=== PATIENT | female | born 1950 ===

== ENCOUNTER 2021-10-27 11:11 | Inpatient (IN) | payer MEDICARE, MEDICAID ==
[2021-10-27] MEDS ORDERED: Lorazepam 2 MG/ML VIAL ONE (14:37)
[2021-10-27 15:07] LABS: Anion Gap 17 mmol/L (10-20); BUN (Urea Nitrogen) 84 mg/dL (9.8-20.1); Calc. Creatinine Clearance 0 mL/min (70-130); Calcium 10.2 mg/dL (7.8-10.44); Carbon Dioxide 21 mmol/L (23-31); Chloride 107 mmol/L (98-107); Estimated GFR 22; Glucose 60 mg/dL (80-115); Potassium 5.2 mmol/L (3.5-5.1); Protein, Total 7.3 g/dL (5.8-8.1); Sodium 140 mmol/L (136-145)
[2021-10-27 15:08] LABS: ALT (SGPT) 31 U/L (8-55); AST (SGOT) 31 U/L (5-34); Albumin 4.1 g/dL (3.4-4.8); Alkaline Phosphatase 99 U/L (40-110); Globulin 3.2 g/dL (2.4-3.5)
[2021-10-27 15:10] LABS: #Eosinphils 0.3 thou/uL (0.0-0.7); #Lymphocytes 1.9 thou/uL (1.20-3.40); #Monocytes 0.5 thou/uL (0.11-0.59); #Neutrophils 2.8 thou/uL (1.40-6.50); %Eosinophils 4.7 % (0.0-10.0); %Lymphocytes 34.4 % (21.0-51.0); %Monocytes 9.6 % (0.0-10.0); %Neutrophils 51.3 % (42.0-75.0); Hemoglobin 9.7 g/dL (12.0-16.0); Mean Corpuscular HGB CONC 33.1 g/dL (32.0-36.0); Mean Corpuscular Hemoglobin 34.3 pg (27.0-31.0); Mean Platelet Volume 8.7 fL (7.4-10.4); Platelet Count 324 thou/uL (130-400); RBC Distribution Width 19.5 % (11.5-14.5); Red Blood Cell (RBC) Count 2.84 mill/uL (4.20-5.40); White Blood Cell (WBC) Count 5.4 thou/uL (4.8-10.8)
[2021-10-27 16:33] LABS: Bilirubin Negative (Negative); Blood, Urine Negative (Negative); Clarity Clear (Clear); Glucose, Urine (Dipstick) Normal (Negative); Ketone, Urine Negative (Negative); Leukocyte 500 Leu/uL (Negative); Nitrite Negative (Negative); Protein, Urine (Dipstick) 300 mg/dL (Neg-Trace); Specific Gravity, Urine 1.013 (1.002-1.036); Squamous Epithelial 0-3 HPF (0-3); Urobilinogen Normal mg/dL (Less than 2); WBC/HPF Greater than 50 HPF (0-3); pH, Urine 8.5 (5.0-9.0)
[2021-10-27 16:34] LABS: Bacteria/HPF 1+ HPF (None Seen)
[2021-10-27] MEDS ORDERED: cefTRIAXone\\ROCEPHIN 500 MG VIAL ONE (16:43)
[2021-10-27] MEDS ORDERED: cefTRIAXone\\ROCEPHIN 1 GM VIAL ONE (16:43)
[2021-10-27 18:22] VITALS: BMI 14.1
[2021-10-28] MEDS ORDERED: Dextrose 50% Abboject 50 ML SYRINGE SLOW IVP PRN (02:32)
[2021-10-28] MEDS: Vancomycin HCl 125 MG/5 ML (BATCHED) UDCUP PO SCH ×4 (04:37→23:16)
[2021-10-28] MEDS: Sodium Chloride 0.9% 1,000 ML IV SCH ×2 (05:01→23:35)
[2021-10-28 05:08] LABS: #Eosinphils 0.2 thou/uL (0.0-0.7); #Lymphocytes 1.9 thou/uL (1.20-3.40); #Monocytes 0.5 thou/uL (0.11-0.59); #Neutrophils 2.4 thou/uL (1.40-6.50); %Basophils 0.3 % (0.0-1.0); %Eosinophils 4.6 % (0.0-10.0); %Lymphocytes 38.4 % (21.0-51.0); %Monocytes 9.2 % (0.0-10.0); %Neutrophils 47.6 % (42.0-75.0); Hemoglobin 9.2 g/dL (12.0-16.0); Mean Corpuscular HGB CONC 35.1 g/dL (32.0-36.0); Mean Platelet Volume 8.6 fL (7.4-10.4); Platelet Count 261 thou/uL (130-400); RBC Distribution Width 19.3 % (11.5-14.5); Red Blood Cell (RBC) Count 2.56 mill/uL (4.20-5.40); White Blood Cell (WBC) Count 5.1 thou/uL (4.8-10.8)
[2021-10-28 05:36] LABS: Anion Gap 14 mmol/L (10-20); BUN (Urea Nitrogen) 73 mg/dL (9.8-20.1); Calc. Creatinine Clearance 15 mL/min (70-130); Calcium 9.4 mg/dL (7.8-10.44); Carbon Dioxide 24 mmol/L (23-31); Cardiac Risk 4.4 (Less than 4.5); Chloride 106 mmol/L (98-107); Cholesterol 153 mg/dl (< 200 Desired); Estimated GFR 26; Glucose 86 mg/dL (80-115); HDL Cholesterol 35 mg/dL (>60 Neg Risk); LDL Cholesterol, Calculated 77 mg/dL; Potassium 5.2 mmol/L (3.5-5.1); Sodium 139 mmol/L (136-145); Triglycerides 204 mg/dL (Less than 150)
[2021-10-28] MEDS: Heparin 5,000 UNITS/ML VIAL SC SCH ×3 (10:13→21:28)
[2021-10-28] MEDS: Acetaminophen 325 MG TAB PO PRN ×2 (12:50→18:31)
[2021-10-28] MEDS ORDERED: Lorazepam 2 MG/ML VIAL SLOW IVP SCH ×2 (13:00→20:30)
[2021-10-28] MEDS ORDERED: Lidocaine 5% Patch TD PRN (14:44)
[2021-10-28] MEDS ORDERED: Transdermal Patch Removal TOP PRN (15:05)
[2021-10-28] MEDS ORDERED: Albuterol Sulfate 2.5 mg/0.5 ml Neb NEB PRN (15:06)
[2021-10-28] MEDS ORDERED: Vancomycin HCl 750 MG in Sodium Chloride 0.9% 250 ML 250 ML IVPB SCH (17:00)
[2021-10-28] MEDS: cefTRIAXone\\ROCEPHIN 1 GM in Sodium Chloride 0.9% 100 ML IVPB SCH (17:18)
[2021-10-28] MEDS: Carvedilol 25 MG TAB PO SCH (17:19)
[2021-10-28 18:58] LABS: Anion Gap 17 mmol/L (10-20); BUN (Urea Nitrogen) 63 mg/dL (9.8-20.1); Calc. Creatinine Clearance 16 mL/min (70-130); Calcium 9.6 mg/dL (7.8-10.44); Carbon Dioxide 18 mmol/L (23-31); Chloride 109 mmol/L (98-107); Estimated GFR 28; Glucose 116 mg/dL (80-115); Potassium 4.9 mmol/L (3.5-5.1); Sodium 139 mmol/L (136-145)
[2021-10-28] MEDS ORDERED: Vancomycin HCl 125 MG/5 ML (BATCHED) UDCUP PO SCH (19:00)
[2021-10-28] MEDS ORDERED: Sodium Bicarbonate 75 MEQ in Sodium Chloride 0.45% 1,000 ML IV SCH (20:00)
[2021-10-28] MEDS: Tacrolimus 1 MG CAP PO SCH (23:15)
[2021-10-28] MEDS: ALPRAZolam 1 MG TAB PO SCH (23:35)
[2021-10-29 05:24] LABS: #Eosinphils 0.2 thou/uL (0.0-0.7); #Lymphocytes 1.4 thou/uL (1.20-3.40); #Monocytes 0.4 thou/uL (0.11-0.59); #Neutrophils 1.7 thou/uL (1.40-6.50); %Basophils 0.1 % (0.0-1.0); %Eosinophils 5.1 % (0.0-10.0); %Lymphocytes 37.7 % (21.0-51.0); %Monocytes 11.4 % (0.0-10.0); %Neutrophils 45.7 % (42.0-75.0); Mean Corpuscular HGB CONC 34.3 g/dL (32.0-36.0); Mean Corpuscular Hemoglobin 34.9 pg (27.0-31.0); Mean Platelet Volume 8.4 fL (7.4-10.4); Platelet Count 256 thou/uL (130-400); Red Blood Cell (RBC) Count 2.58 mill/uL (4.20-5.40); White Blood Cell (WBC) Count 3.6 thou/uL (4.8-10.8)
[2021-10-29 05:47] LABS: ALT (SGPT) 25 U/L (8-55); AST (SGOT) 41 U/L (5-34); Albumin 3.4 g/dL (3.4-4.8); Alkaline Phosphatase 84 U/L (40-110); Anion Gap 15 mmol/L (10-20); BUN (Urea Nitrogen) 54 mg/dL (9.8-20.1); Bilirubin, Total 0.5 mg/dL (0.2-1.2); Calc. Creatinine Clearance 18 mL/min (70-130); Calcium 8.8 mg/dL (7.8-10.44); Carbon Dioxide 17 mmol/L (23-31); Chloride 110 mmol/L (98-107); Estimated GFR 31; Globulin 3.3 g/dL (2.4-3.5); Glucose 96 mg/dL (80-115); Magnesium 2.3 mg/dL (1.6-2.6); Phosphorus 3.7 mg/dL (2.3-4.7); Potassium 5.9 mmol/L (3.5-5.1); Protein, Total 6.7 g/dL (5.8-8.1); Sodium 136 mmol/L (136-145)
[2021-10-29] MEDS: Vancomycin HCl 125 MG/5 ML (BATCHED) UDCUP PO SCH ×3 (05:57→18:29)
[2021-10-29] MEDS ORDERED: LOKELMA 10 GM PACKET PO SCH (07:00)
[2021-10-29] MEDS ORDERED: Dronabinol 2.5 MG CAP PO SCH (08:00)
[2021-10-29] MEDS: Heparin 5,000 UNITS/ML VIAL SC SCH ×3 (10:32→12:09)
[2021-10-29] MEDS: Carvedilol 25 MG TAB PO SCH ×2 (10:33→17:11)
[2021-10-29] MEDS: Tacrolimus 1 MG CAP PO SCH ×2 (10:33→20:25)
[2021-10-29] MEDS: Famotidine/PF 20 mg/2ml Vial SLOW IVP SCH (10:34)
[2021-10-29 12:28] LABS: Potassium 4.4 mmol/L (3.5-5.1)
[2021-10-29] MEDS: Sodium Bicarbonate 150 MEQ in Dextrose 5% in Water 1,000 ML IV SCH (13:55)
[2021-10-29] MEDS: Lidocaine 5% Patch TD PRN (15:27)
[2021-10-29] MEDS: Acetaminophen 325 MG TAB PO PRN ×2 (15:28→20:24)
[2021-10-29 16:30] LABS: Anion Gap 14 mmol/L (10-20); BUN (Urea Nitrogen) 48 mg/dL (9.8-20.1); Calc. Creatinine Clearance 18 mL/min (70-130); Calcium 8.6 mg/dL (7.8-10.44); Carbon Dioxide 18 mmol/L (23-31); Chloride 108 mmol/L (98-107); Estimated GFR 32; Glucose 141 mg/dL (80-115); Potassium 4.7 mmol/L (3.5-5.1); Sodium 135 mmol/L (136-145)
[2021-10-29] MEDS: cefTRIAXone\\ROCEPHIN 1 GM in Sodium Chloride 0.9% 100 ML IVPB SCH (17:11)
[2021-10-29] MEDS: Dronabinol 2.5 MG CAP PO SCH (18:29)
[2021-10-29] MEDS ORDERED: ALPRAZolam 0.5 MG TAB PO PRN (20:14)
[2021-10-29] MEDS: ALPRAZolam 1 MG TAB PO SCH (20:23)
[2021-10-30] MEDS: Vancomycin HCl 125 MG/5 ML (BATCHED) UDCUP PO SCH ×5 (01:27→22:00)
[2021-10-30] MEDS: Sodium Bicarbonate 150 MEQ in Dextrose 5% in Water 1,000 ML IV SCH (05:49)
[2021-10-30 05:59] LABS: Anion Gap 11 mmol/L (10-20); BUN (Urea Nitrogen) 44 mg/dL (9.8-20.1); Calc. Creatinine Clearance 18 mL/min (70-130); Calcium 8.3 mg/dL (7.8-10.44); Carbon Dioxide 29 mmol/L (23-31); Chloride 104 mmol/L (98-107); Estimated GFR 32; Glucose 116 mg/dL (80-115); Potassium 3.8 mmol/L (3.5-5.1); Sodium 140 mmol/L (136-145)
[2021-10-30] MEDS ORDERED: Megestrol Acetate 800 MG/20 ML UDCUP PO SCH (09:00)
[2021-10-30] MEDS: Dronabinol 2.5 MG CAP PO SCH ×3 (09:33→16:31)
[2021-10-30] MEDS: Carvedilol 25 MG TAB PO SCH ×2 (09:33→16:31)
[2021-10-30] MEDS: Famotidine/PF 20 mg/2ml Vial SLOW IVP SCH (09:33)
[2021-10-30] MEDS: Heparin 5,000 UNITS/ML VIAL SC SCH ×3 (09:33→20:56)
[2021-10-30] MEDS: Tacrolimus 1 MG CAP PO SCH ×2 (09:33→20:56)
[2021-10-30] MEDS: hydrALAZINE 20 MG/ML VIAL SLOW IVP PRN (10:06)
[2021-10-30] MEDS: cefTRIAXone\\ROCEPHIN 1 GM in Sodium Chloride 0.9% 100 ML IVPB SCH (16:32)
[2021-10-30] MEDS: ALPRAZolam 0.25 MG TAB PO PRN (20:55)
[2021-10-31 05:45] LABS: Anion Gap 11 mmol/L (10-20); BUN (Urea Nitrogen) 36 mg/dL (9.8-20.1); Calc. Creatinine Clearance 18 mL/min (70-130); Calcium 8.8 mg/dL (7.8-10.44); Carbon Dioxide 30 mmol/L (23-31); Chloride 104 mmol/L (98-107); Estimated GFR 32; Glucose 82 mg/dL (80-115); Potassium 3.8 mmol/L (3.5-5.1); Sodium 141 mmol/L (136-145)
[2021-10-31] MEDS: Vancomycin HCl 125 MG/5 ML (BATCHED) UDCUP PO SCH ×3 (06:14→19:30)
[2021-10-31] MEDS: Heparin 5,000 UNITS/ML VIAL SC SCH ×3 (09:15→21:05)
[2021-10-31] MEDS: Carvedilol 25 MG TAB PO SCH ×2 (09:20→16:12)
[2021-10-31] MEDS: Famotidine/PF 20 mg/2ml Vial SLOW IVP SCH (09:21)
[2021-10-31] MEDS ORDERED: Acetaminophen 650 MG Suppository PR PRN (10:26)
[2021-10-31] MEDS: Tacrolimus 1 MG CAP PO SCH ×2 (10:30→20:54)
[2021-10-31] MEDS: Dronabinol 2.5 MG CAP PO SCH ×3 (10:30→16:28)
[2021-10-31] MEDS ORDERED: Ketorolac Tromethamine 30 MG/ML VIAL IVP SCH (11:00)
[2021-10-31] MEDS: Acetaminophen 325 MG TAB PO PRN (11:04)
[2021-10-31] MEDS: cefTRIAXone\\ROCEPHIN 1 GM in Sodium Chloride 0.9% 100 ML IVPB SCH (16:12)
[2021-10-31] MEDS: Dextrose 5% in Water 1,000 ML IV PRN (18:49)
[2021-10-31] MEDS: hydrALAZINE 20 MG/ML VIAL SLOW IVP PRN (20:54)
[2021-10-31] MEDS: ALPRAZolam 0.25 MG TAB PO PRN (23:56)
[2021-11-01] MEDS: Vancomycin HCl 125 MG/5 ML (BATCHED) UDCUP PO SCH ×4 (00:58→20:04)
[2021-11-01] MEDS ORDERED: Haloperidol Lactate 5 MG/ML VIAL IM SCH ×2 (01:00→21:30)
[2021-11-01] MEDS: hydrALAZINE 20 MG/ML VIAL SLOW IVP PRN ×2 (04:25→16:39)
[2021-11-01] MEDS: Dextrose 5% in Water 1,000 ML IV PRN (08:11)
[2021-11-01 08:37] LABS: Anion Gap 13 mmol/L (10-20); BUN (Urea Nitrogen) 36 mg/dL (9.8-20.1); Calc. Creatinine Clearance 16 mL/min (70-130); Calcium 8.9 mg/dL (7.8-10.44); Carbon Dioxide 25 mmol/L (23-31); Chloride 102 mmol/L (98-107); Estimated GFR 28; Glucose 122 mg/dL (80-115); Potassium 4.1 mmol/L (3.5-5.1); Sodium 136 mmol/L (136-145)
[2021-11-01] MEDS ORDERED: Heparin 5,000 UNITS/ML VIAL SC SCH (09:00)
[2021-11-01] MEDS: Dextrose 5%-Lactated Ringers 1,000 ML IV SCH (11:25)
[2021-11-01] MEDS: Famotidine/PF 20 mg/2ml Vial SLOW IVP SCH (11:25)
[2021-11-01] MEDS: Carvedilol 25 MG TAB PO SCH ×2 (11:41→20:03)
[2021-11-01] MEDS: Tacrolimus 1 MG CAP PO SCH ×2 (11:42→21:03)
[2021-11-01] MEDS: Dronabinol 2.5 MG CAP PO SCH ×3 (11:42→20:03)
[2021-11-01] MEDS ORDERED: HYDROcodone/Acetaminophen 5/325 mg Tablet PO PRN (14:12)
[2021-11-01] MEDS: cefTRIAXone\\ROCEPHIN 1 GM in Sodium Chloride 0.9% 100 ML IVPB SCH (16:38)
[2021-11-01] MEDS ORDERED: Acetaminophen 325 MG Suppository PR PRN (17:35)
[2021-11-01] MEDS ORDERED: Labetalol HCl 100 MG/20 ML VIAL SLOW IVP SCH (21:30)
[2021-11-02] MEDS: Vancomycin HCl 125 MG/5 ML (BATCHED) UDCUP PO SCH ×5 (01:16→23:39)
[2021-11-02] MEDS: Dextrose 5%-Lactated Ringers 1,000 ML IV SCH ×2 (05:31→23:32)
[2021-11-02 05:47] LABS: Anion Gap 11 mmol/L (10-20); BUN (Urea Nitrogen) 28 mg/dL (9.8-20.1); Calc. Creatinine Clearance 18 mL/min (70-130); Calcium 8.9 mg/dL (7.8-10.44); Carbon Dioxide 25 mmol/L (23-31); Chloride 105 mmol/L (98-107); Estimated GFR 31; Glucose 92 mg/dL (80-115); Potassium 3.9 mmol/L (3.5-5.1); Sodium 137 mmol/L (136-145)
[2021-11-02] MEDS: Famotidine/PF 20 mg/2ml Vial SLOW IVP SCH (08:24)
[2021-11-02] MEDS: hydrALAZINE 20 MG/ML VIAL SLOW IVP PRN ×2 (08:26→23:27)
[2021-11-02] MEDS: Carvedilol 25 MG TAB PO SCH ×2 (09:43→16:25)
[2021-11-02] MEDS: Tacrolimus 1 MG CAP PO SCH ×2 (09:44→20:41)
[2021-11-02] MEDS: Dronabinol 2.5 MG CAP PO SCH ×3 (09:44→16:25)
[2021-11-02] MEDS: cefTRIAXone\\ROCEPHIN 1 GM in Sodium Chloride 0.9% 100 ML IVPB SCH (16:24)
[2021-11-03] MEDS: hydrALAZINE 20 MG/ML VIAL SLOW IVP PRN ×3 (03:29→18:26)
[2021-11-03] MEDS: Vancomycin HCl 125 MG/5 ML (BATCHED) UDCUP PO SCH ×3 (05:37→18:26)
[2021-11-03] MEDS: Carvedilol 25 MG TAB PO SCH ×2 (08:08→17:22)
[2021-11-03] MEDS: Dronabinol 2.5 MG CAP PO SCH ×3 (08:08→17:22)
[2021-11-03] MEDS: cloNIDine 0.1mg/24 Hour PATCH TD SCH (09:47)
[2021-11-03] MEDS: Famotidine 20 MG TAB PO SCH (09:47)
[2021-11-03] MEDS: Tacrolimus 1 MG CAP PO SCH ×2 (09:47→20:47)
[2021-11-03] MEDS: cefTRIAXone\\ROCEPHIN 1 GM in Sodium Chloride 0.9% 100 ML IVPB SCH (17:38)
[2021-11-03] MEDS: Dextrose 5%-Lactated Ringers 1,000 ML IV SCH (20:47)
[2021-11-04] MEDS: Vancomycin HCl 125 MG/5 ML (BATCHED) UDCUP PO SCH ×4 (01:25→19:41)
[2021-11-04] MEDS: Labetalol HCl 100 MG/20 ML VIAL SLOW IVP PRN ×2 (03:59→20:24)
[2021-11-04] MEDS: Dronabinol 2.5 MG CAP PO SCH ×3 (07:56→17:00)
[2021-11-04] MEDS: Carvedilol 25 MG TAB PO SCH ×2 (07:56→17:01)
[2021-11-04] MEDS: Tacrolimus 1 MG CAP PO SCH ×2 (09:04→20:24)
[2021-11-04] MEDS: Famotidine 20 MG TAB PO SCH (09:04)
[2021-11-04] MEDS: Nitroglycerin 2% Ointment 1 INCH/1 GM Packet TOP SCH ×2 (09:20→17:00)
[2021-11-04] MEDS: cefTRIAXone\\ROCEPHIN 1 GM in Sodium Chloride 0.9% 100 ML IVPB SCH (17:00)
[2021-11-04] MEDS: Dextrose 5%-Lactated Ringers 1,000 ML IV SCH (18:37)
[2021-11-05] MEDS: Vancomycin HCl 125 MG/5 ML (BATCHED) UDCUP PO SCH ×4 (00:18→17:58)
[2021-11-05] MEDS: Nitroglycerin 2% Ointment 1 INCH/1 GM Packet TOP SCH ×3 (00:20→16:28)
[2021-11-05] MEDS: Carvedilol 25 MG TAB PO SCH ×2 (08:39→16:29)
[2021-11-05] MEDS: Famotidine 20 MG TAB PO SCH (08:40)
[2021-11-05] MEDS: Dronabinol 2.5 MG CAP PO SCH ×3 (08:40→17:36)
[2021-11-05] MEDS: Tacrolimus 1 MG CAP PO SCH ×2 (08:40→20:53)
[2021-11-05] MEDS: Labetalol HCl 100 MG/20 ML VIAL SLOW IVP PRN (13:03)
[2021-11-05] MEDS: Dextrose 5%-Lactated Ringers 1,000 ML IV SCH (13:10)
[2021-11-05] MEDS: cefTRIAXone\\ROCEPHIN 1 GM in Sodium Chloride 0.9% 100 ML IVPB SCH (16:29)
[2021-11-05] MEDS: hydrALAZINE 20 MG/ML VIAL SLOW IVP PRN (20:46)
[2021-11-06] MEDS: Nitroglycerin 2% Ointment 1 INCH/1 GM Packet TOP SCH ×3 (00:23→17:05)
[2021-11-06] MEDS: Vancomycin HCl 125 MG/5 ML (BATCHED) UDCUP PO SCH ×4 (00:26→18:42)
[2021-11-06 05:59] LABS: Anion Gap 10 mmol/L (10-20); BUN (Urea Nitrogen) 15 mg/dL (9.8-20.1); Calc. Creatinine Clearance 26 mL/min (70-130); Calcium 8.6 mg/dL (7.8-10.44); Carbon Dioxide 22 mmol/L (23-31); Chloride 110 mmol/L (98-107); Estimated GFR 49; Glucose 92 mg/dL (80-115); Sodium 138 mmol/L (136-145)
[2021-11-06 06:37] LABS: Anisocytosis SLIGHT = 6-15 cells (100X) (0-5/hpf); Band 2 % (5-11); Eosinophils 4 % (0-10); Hemoglobin 8.1 g/dL (12.0-16.0); Lymphocytes 57 % (21-51); MDiff Complete? YES; Macrocytosis MODERATE=16-30 cells (100X) (0-5/hpf); Mean Corpuscular HGB CONC 32.1 g/dL (32.0-36.0); Mean Corpuscular Hemoglobin 33.8 pg (27.0-31.0); Mean Platelet Volume 8.7 fL (7.4-10.4); Monocytes 8 % (0-10); Neutrophil 29 % (42-75); Ovalocytes SLIGHT = 2-5 cells (100X) (0-1/hpf); Platelet Count 192 thou/uL (130-400); Platelet Morphology Comment Appears Adequate; RBC Distribution Width 17.3 % (11.5-14.5); Red Blood Cell (RBC) Count 2.41 mill/uL (4.20-5.40); White Blood Cell (WBC) Count 2.8 thou/uL (4.8-10.8)
[2021-11-06] MEDS: Dextrose 5%-Lactated Ringers 1,000 ML IV SCH (08:31)
[2021-11-06] MEDS: Carvedilol 25 MG TAB PO SCH ×2 (08:37→18:32)
[2021-11-06] MEDS: Dronabinol 2.5 MG CAP PO SCH ×3 (08:38→18:34)
[2021-11-06] MEDS: Tacrolimus 1 MG CAP PO SCH ×2 (09:30→20:32)
[2021-11-06] MEDS: Famotidine 20 MG TAB PO SCH (09:30)
[2021-11-06] MEDS: cefTRIAXone\\ROCEPHIN 1 GM in Sodium Chloride 0.9% 100 ML IVPB SCH (17:08)
[2021-11-07] MEDS: Nitroglycerin 2% Ointment 1 INCH/1 GM Packet TOP SCH ×3 (02:10→17:51)
[2021-11-07] MEDS: Vancomycin HCl 125 MG/5 ML (BATCHED) UDCUP PO SCH ×2 (02:12→18:10)
[2021-11-07] MEDS: Dextrose 5%-Lactated Ringers 1,000 ML IV SCH ×2 (03:47→23:38)
[2021-11-07] MEDS: Carvedilol 25 MG TAB PO SCH ×2 (09:36→17:51)
[2021-11-07] MEDS: Famotidine 20 MG TAB PO SCH (09:41)
[2021-11-07] MEDS: Tacrolimus 1 MG CAP PO SCH ×3 (09:44→22:15)
[2021-11-07] MEDS: Dronabinol 2.5 MG CAP PO SCH ×3 (09:44→16:49)
[2021-11-07] MEDS ORDERED: HYDROcodone/Acetaminophen 10/325 mg Tablet PO PRN (21:00)
[2021-11-07] MEDS ORDERED: HYDROcodone/Acetaminophen 5/325 mg Tablet PO PRN (21:20)
[2021-11-07] MEDS: hydrALAZINE 20 MG/ML VIAL SLOW IVP PRN (23:38)
[2021-11-08] MEDS: Nitroglycerin 2% Ointment 1 INCH/1 GM Packet TOP SCH ×3 (00:18→17:54)
[2021-11-08] MEDS: Labetalol HCl 100 MG/20 ML VIAL SLOW IVP PRN ×2 (08:19→13:01)
[2021-11-08] MEDS: Carvedilol 25 MG TAB PO SCH ×2 (08:29→17:54)
[2021-11-08] MEDS: Tacrolimus 1 MG CAP PO SCH ×2 (08:34→20:40)
[2021-11-08] MEDS: Dronabinol 2.5 MG CAP PO SCH ×3 (10:34→17:55)
[2021-11-08] MEDS: Dextrose 5%-Lactated Ringers 1,000 ML IV SCH (19:38)
[2021-11-09] MEDS: Nitroglycerin 2% Ointment 1 INCH/1 GM Packet TOP SCH ×3 (00:06→16:14)
[2021-11-09 06:32] LABS: Anion Gap 10 mmol/L (10-20); BUN (Urea Nitrogen) 18 mg/dL (9.8-20.1); Calc. Creatinine Clearance 27 mL/min (70-130); Calcium 8.4 mg/dL (7.8-10.44); Carbon Dioxide 22 mmol/L (23-31); Chloride 113 mmol/L (98-107); Estimated GFR 52; Glucose 81 mg/dL (80-115); Potassium 4.2 mmol/L (3.5-5.1); Sodium 141 mmol/L (136-145)
[2021-11-09] MEDS ORDERED: Famotidine 20 MG TAB PO SCH (09:00)
[2021-11-09] MEDS ORDERED: Folic Acid 1 MG TAB PO SCH ×2 (09:36→10:00)
[2021-11-09] MEDS: Labetalol HCl 100 MG/20 ML VIAL SLOW IVP PRN ×2 (09:55→20:15)
[2021-11-09] MEDS: Amlodipine 10 MG TAB PO SCH (10:09)
[2021-11-09] MEDS: Dronabinol 2.5 MG CAP PO SCH ×3 (10:09→16:27)
[2021-11-09] MEDS: Carvedilol 25 MG TAB PO SCH ×2 (10:09→16:15)
[2021-11-09] MEDS: Tacrolimus 1 MG CAP PO SCH ×3 (10:10→20:29)
[2021-11-09] MEDS: Acetaminophen 325 MG TAB PO PRN (11:23)
[2021-11-09] MEDS ORDERED: Cyanocobalamin 1000 MCG/ML VIAL IM SCH (12:00)
[2021-11-09] MEDS: Dextrose 5%-Lactated Ringers 1,000 ML IV SCH (16:15)
[2021-11-09] MEDS ORDERED: HumaLOG 300 UNITS/3 ML VIAL SC PRN (21:40)
[2021-11-09] MEDS ORDERED: Promethazine HCl 25 MG in Sodium Chloride 0.9% 50 ML IVPB PRN (21:40)
[2021-11-09] MEDS ORDERED: hydrOXYzine 25 MG TAB PO PRN (21:40)
[2021-11-09] MEDS ORDERED: Polyethylene Glycol 3350 17 GM Packet PO PRN (21:50)
[2021-11-10] MEDS: Nitroglycerin 2% Ointment 1 INCH/1 GM Packet TOP SCH ×3 (00:05→16:24)
[2021-11-10] MEDS: Labetalol HCl 100 MG/20 ML VIAL SLOW IVP PRN ×3 (03:08→20:38)
[2021-11-10] MEDS: hydrALAZINE 20 MG/ML VIAL SLOW IVP PRN ×2 (08:33→16:27)
[2021-11-10] MEDS: Carvedilol 25 MG TAB PO SCH ×2 (08:43→16:52)
[2021-11-10] MEDS: Dronabinol 2.5 MG CAP PO SCH ×3 (08:43→16:52)
[2021-11-10] MEDS ORDERED: predniSONE 5 MG TAB PO SCH ×2 (08:45→09:00)
[2021-11-10] MEDS ORDERED: Vancomycin HCl 125 MG/5 ML (BATCHED) UDCUP PO SCH (09:00)
[2021-11-10] MEDS ORDERED: GINGER ROOT 250 MG PO SCH (09:00)
[2021-11-10] MEDS ORDERED: Famotidine 20 MG TAB PO SCH (09:00)
[2021-11-10] MEDS: Allopurinol 100 MG TAB PO SCH (11:29)
[2021-11-10] MEDS: busPIRone HCl 5 MG TAB PO SCH ×3 (11:29→20:49)
[2021-11-10] MEDS: Amlodipine 10 MG TAB PO SCH (11:29)
[2021-11-10] MEDS: Cholecalciferol 1,000 UNITS (25 MCG) TAB PO SCH (11:29)
[2021-11-10] MEDS: Folic Acid 1 MG TAB PO SCH (11:30)
[2021-11-10] MEDS: Famotidine 20 MG TAB PO SCH (11:30)
[2021-11-10] MEDS: cloNIDine 0.1mg/24 Hour PATCH TD SCH (11:30)
[2021-11-10] MEDS: Insulin Glargine 30 UNITS/0.3 ML VIAL SC SCH (11:31)
[2021-11-10] MEDS: Oxybutynin 5 MG TAB PO SCH ×3 (11:31→20:49)
[2021-11-10] MEDS: Torsemide 20 MG TAB PO SCH (11:32)
[2021-11-10] MEDS: Tacrolimus 1 MG CAP PO SCH ×2 (11:32→22:24)
[2021-11-10] MEDS: Dextrose 5%-Lactated Ringers 1,000 ML IV SCH (12:23)
[2021-11-10 12:53] LABS: #Eosinphils 0.1 thou/uL (0.0-0.7); #Lymphocytes 1.8 thou/uL (1.20-3.40); #Monocytes 0.3 thou/uL (0.11-0.59); #Neutrophils 2.1 thou/uL (1.40-6.50); %Basophils 0.2 % (0.0-1.0); %Eosinophils 2.7 % (0.0-10.0); %Lymphocytes 42.3 % (21.0-51.0); %Neutrophils 48.8 % (42.0-75.0); Hemoglobin 7.6 g/dL (12.0-16.0); Mean Corpuscular HGB CONC 33.3 g/dL (32.0-36.0); Mean Corpuscular Hemoglobin 33.9 pg (27.0-31.0); Mean Platelet Volume 8.1 fL (7.4-10.4); Platelet Count 185 thou/uL (130-400); RBC Distribution Width 16.7 % (11.5-14.5); Red Blood Cell (RBC) Count 2.25 mill/uL (4.20-5.40); White Blood Cell (WBC) Count 4.4 thou/uL (4.8-10.8)
[2021-11-10 13:18] LABS: Anion Gap 10 mmol/L (10-20); BUN (Urea Nitrogen) 17 mg/dL (9.8-20.1); Calc. Creatinine Clearance 31 mL/min (70-130); Calcium 8.3 mg/dL (7.8-10.44); Carbon Dioxide 24 mmol/L (23-31); Chloride 112 mmol/L (98-107); Estimated GFR 60; Glucose 89 mg/dL (80-115); Potassium 3.9 mmol/L (3.5-5.1); Sodium 142 mmol/L (136-145)
[2021-11-11] MEDS: Labetalol HCl 100 MG/20 ML VIAL SLOW IVP PRN ×3 (00:03→13:17)
[2021-11-11] MEDS: Nitroglycerin 2% Ointment 1 INCH/1 GM Packet TOP SCH ×3 (00:03→19:44)
[2021-11-11] MEDS: Dronabinol 2.5 MG CAP PO SCH ×3 (09:26→18:15)
[2021-11-11] MEDS: predniSONE 5 MG TAB PO SCH (09:50)
[2021-11-11] MEDS: Carvedilol 25 MG TAB PO SCH ×2 (09:50→19:45)
[2021-11-11] MEDS: Allopurinol 100 MG TAB PO SCH (09:50)
[2021-11-11] MEDS: Amlodipine 10 MG TAB PO SCH (09:50)
[2021-11-11] MEDS: busPIRone HCl 5 MG TAB PO SCH ×3 (09:50→21:13)
[2021-11-11] MEDS: Insulin Glargine 30 UNITS/0.3 ML VIAL SC SCH (09:51)
[2021-11-11] MEDS: Folic Acid 1 MG TAB PO SCH (09:51)
[2021-11-11] MEDS: Oxybutynin 5 MG TAB PO SCH ×3 (09:51→21:22)
[2021-11-11] MEDS: Tacrolimus 1 MG CAP PO SCH ×2 (09:51→21:22)
[2021-11-11] MEDS: Torsemide 20 MG TAB PO SCH (09:51)
[2021-11-11] MEDS: Cholecalciferol 1,000 UNITS (25 MCG) TAB PO SCH (09:51)
[2021-11-11] MEDS: Dextrose 5%-Lactated Ringers 1,000 ML IV SCH (10:53)
[2021-11-11] MEDS: Ondansetron PF 4 MG/2 ML Vial IVP PRN (14:55)
[2021-11-11] MEDS: Lidocaine 5% Patch TD PRN (14:56)
[2021-11-11] MEDS: Acetaminophen 325 MG TAB PO PRN (19:45)
[2021-11-12] MEDS: Nitroglycerin 2% Ointment 1 INCH/1 GM Packet TOP SCH ×3 (01:33→16:44)
[2021-11-12] MEDS: Dextrose 5%-Lactated Ringers 1,000 ML IV SCH (04:21)
[2021-11-12] MEDS: hydrALAZINE 20 MG/ML VIAL SLOW IVP PRN (04:27)
[2021-11-12] MEDS: Labetalol HCl 100 MG/20 ML VIAL SLOW IVP PRN ×2 (10:01→16:47)
[2021-11-12] MEDS: Carvedilol 25 MG TAB PO SCH ×2 (10:13→17:05)
[2021-11-12] MEDS: Cholecalciferol 1,000 UNITS (25 MCG) TAB PO SCH (10:13)
[2021-11-12] MEDS: predniSONE 5 MG TAB PO SCH (10:13)
[2021-11-12] MEDS: busPIRone HCl 5 MG TAB PO SCH ×3 (10:13→21:25)
[2021-11-12] MEDS: Amlodipine 10 MG TAB PO SCH (10:13)
[2021-11-12] MEDS: Dronabinol 2.5 MG CAP PO SCH ×3 (10:13→17:05)
[2021-11-12] MEDS: Allopurinol 100 MG TAB PO SCH (10:13)
[2021-11-12] MEDS: Famotidine 20 MG TAB PO SCH (10:14)
[2021-11-12] MEDS: Insulin Glargine 30 UNITS/0.3 ML VIAL SC SCH (10:14)
[2021-11-12] MEDS: Oxybutynin 5 MG TAB PO SCH ×3 (10:14→21:25)
[2021-11-12] MEDS: Tacrolimus 1 MG CAP PO SCH ×2 (10:14→21:25)
[2021-11-12] MEDS: Folic Acid 1 MG TAB PO SCH (10:14)
[2021-11-12] MEDS: Torsemide 20 MG TAB PO SCH (10:14)
[2021-11-12] MEDS ORDERED: Melatonin 3 MG TAB PO PRN (17:51)
[2021-11-12 18:27] LABS: Anion Gap 10 mmol/L (10-20); BUN (Urea Nitrogen) 17 mg/dL (9.8-20.1); Calc. Creatinine Clearance 26 mL/min (70-130); Calcium 8.1 mg/dL (7.8-10.44); Carbon Dioxide 24 mmol/L (23-31); Chloride 111 mmol/L (98-107); Estimated GFR 50; Glucose 111 mg/dL (80-115); Magnesium 1.4 mg/dL (1.6-2.6); Potassium 3.7 mmol/L (3.5-5.1); Sodium 141 mmol/L (136-145)
[2021-11-12 18:32] LABS: #Eosinphils 0.1 thou/uL (0.0-0.7); #Lymphocytes 1.3 thou/uL (1.20-3.40); #Monocytes 0.2 thou/uL (0.11-0.59); #Neutrophils 1.2 thou/uL (1.40-6.50); %Basophils 1.7 % (0.0-1.0); %Eosinophils 4.2 % (0.0-10.0); %Lymphocytes 45.5 % (21.0-51.0); %Monocytes 6.6 % (0.0-10.0); Hemoglobin 7.6 g/dL (12.0-16.0); Mean Corpuscular HGB CONC 32.7 g/dL (32.0-36.0); Mean Corpuscular Hemoglobin 33.6 pg (27.0-31.0); Mean Platelet Volume 8.2 fL (7.4-10.4); Platelet Count 205 thou/uL (130-400); RBC Distribution Width 16.6 % (11.5-14.5); Red Blood Cell (RBC) Count 2.27 mill/uL (4.20-5.40); White Blood Cell (WBC) Count 2.8 thou/uL (4.8-10.8)
[2021-11-12] MEDS ORDERED: Magnesium Sulfate In Water 4 GM in Premix Bag 1 BAG IVPB SCH (19:00)
[2021-11-12] MEDS ORDERED: Dronabinol 2.5 MG CAP PO SCH (20:00)
[2021-11-12] MEDS: Ondansetron PF 4 MG/2 ML Vial IVP PRN (20:10)
[2021-11-13] MEDS: Dextrose 5%-Lactated Ringers 1,000 ML IV SCH (00:28)
[2021-11-13] MEDS: Nitroglycerin 2% Ointment 1 INCH/1 GM Packet TOP SCH ×3 (00:28→15:30)
[2021-11-13 01:21] LABS: Bacteria/HPF 2+ HPF (None Seen); Bilirubin Negative (Negative); Blood, Urine 1+ (Negative); Clarity Turbid (Clear); Glucose, Urine (Dipstick) Normal (Negative); Ketone, Urine Negative (Negative); Leukocyte 75 Leu/uL (Negative); Nitrite 1+ (Negative); Protein, Urine (Dipstick) 300 mg/dL (Neg-Trace); Specific Gravity, Urine 1.018 (1.002-1.036); Squamous Epithelial 0-3 HPF (0-3); Urobilinogen Normal mg/dL (Less than 2); WBC/HPF 21-50 HPF (0-3)
[2021-11-13 01:22] LABS: Urine Culture Reflex Yes Yes
[2021-11-13] MEDS: Labetalol HCl 100 MG/20 ML VIAL SLOW IVP PRN ×3 (04:26→15:29)
[2021-11-13 06:24] LABS: #Basophils 0.1 thou/uL (0.0-0.2); #Eosinphils 0.1 thou/uL (0.0-0.7); #Lymphocytes 1.4 thou/uL (1.20-3.40); #Monocytes 0.3 thou/uL (0.11-0.59); #Neutrophils 2.1 thou/uL (1.40-6.50); %Basophils 1.6 % (0.0-1.0); %Eosinophils 3.7 % (0.0-10.0); %Lymphocytes 35.6 % (21.0-51.0); %Monocytes 6.2 % (0.0-10.0); %Neutrophils 52.8 % (42.0-75.0); Hemoglobin 7.3 g/dL (12.0-16.0); Mean Corpuscular HGB CONC 33.1 g/dL (32.0-36.0); Mean Corpuscular Hemoglobin 33.9 pg (27.0-31.0); Mean Platelet Volume 7.9 fL (7.4-10.4); Platelet Count 210 thou/uL (130-400); RBC Distribution Width 16.5 % (11.5-14.5); Red Blood Cell (RBC) Count 2.15 mill/uL (4.20-5.40)
[2021-11-13 06:25] LABS: Reticulocyte Count 2.6 % (0.5-1.5)
[2021-11-13 06:35] LABS: Iron 26 ug/dL (50-170); Iron Binding Capacity, Total 119 mcg/dL (265-497)
[2021-11-13 06:37] LABS: Anion Gap 9 mmol/L (10-20); BUN (Urea Nitrogen) 16 mg/dL (9.8-20.1); Calc. Creatinine Clearance 27 mL/min (70-130); Calcium 8.2 mg/dL (7.8-10.44); Carbon Dioxide 24 mmol/L (23-31); Chloride 110 mmol/L (98-107); Estimated GFR 51; Glucose 110 mg/dL (80-115); Iron 26 ug/dL (50-170); Iron Binding Capacity, Total 119 mcg/dL (265-497); Magnesium 2.6 mg/dL (1.6-2.6); Potassium 3.8 mmol/L (3.5-5.1); Sodium 139 mmol/L (136-145)
[2021-11-13] MEDS ORDERED: cefTRIAXone\\ROCEPHIN 1 GM in Sodium Chloride 0.9% 100 ML IVPB SCH (06:45)
[2021-11-13 07:02] LABS: Thyroid Stimulating Hormone 2.4257 uIU/mL (0.35-4.94)
[2021-11-13 08:02] LABS: Ferritin 2832.71 ng/mL (10-291)
[2021-11-13] MEDS: Carvedilol 25 MG TAB PO SCH ×2 (08:04→17:00)
[2021-11-13] MEDS: Amlodipine 10 MG TAB PO SCH (08:05)
[2021-11-13] MEDS: predniSONE 5 MG TAB PO SCH (08:05)
[2021-11-13] MEDS: Allopurinol 100 MG TAB PO SCH (08:05)
[2021-11-13] MEDS: Cholecalciferol 1,000 UNITS (25 MCG) TAB PO SCH (08:06)
[2021-11-13] MEDS: busPIRone HCl 5 MG TAB PO SCH ×3 (08:06→22:10)
[2021-11-13] MEDS: Insulin Glargine 30 UNITS/0.3 ML VIAL SC SCH (08:06)
[2021-11-13] MEDS: Folic Acid 1 MG TAB PO SCH (08:06)
[2021-11-13] MEDS: Oxybutynin 5 MG TAB PO SCH ×3 (08:07→22:10)
[2021-11-13] MEDS: Tacrolimus 1 MG CAP PO SCH ×2 (08:10→22:10)
[2021-11-13] MEDS: Torsemide 20 MG TAB PO SCH (08:10)
[2021-11-13] MEDS: Iron, Sodium Ferric Gluconate 250 MG in Sodium Chloride 0.9% 250 ML 250 ML IVPB SCH (09:18)
[2021-11-13] MEDS: Dronabinol 2.5 MG CAP PO SCH ×3 (09:38→17:01)
[2021-11-13] MEDS ORDERED: Lorazepam 1 MG TAB PO PRN (11:21)
[2021-11-13 11:36] LABS: Syphilis Antibody Nonreactive (Nonreactive); Syphilis Antibody Index 0.09 S/CO (<1.00 Non-Reactive)
[2021-11-13 16:56] LABS: Bilirubin Negative (Negative); Blood, Urine 2+ (Negative); Glucose, Urine (Dipstick) Normal (Negative); Ketone, Urine Negative (Negative); Leukocyte 500 Leu/uL (Negative); Nitrite Negative (Negative); Protein, Urine (Dipstick) 300 mg/dL (Neg-Trace); Specific Gravity, Urine 1.015 (1.002-1.036); Squamous Epithelial None Seen HPF (0-3); Urobilinogen Normal mg/dL (Less than 2)
[2021-11-13 17:08] LABS: Clarity Turbid (Clear)
[2021-11-13 17:09] LABS: Bacteria/HPF 3+ HPF (None Seen); WBC/HPF Greater than 50 HPF (0-3)
[2021-11-14] MEDS: Nitroglycerin 2% Ointment 1 INCH/1 GM Packet TOP SCH ×3 (00:28→16:23)
[2021-11-14] MEDS: cefTRIAXone\\ROCEPHIN 1 GM in Sodium Chloride 0.9% 100 ML IVPB SCH (06:10)
[2021-11-14 06:14] LABS: HIV (1/2) Antibody/Antigen Non-Reactive (NonReactive); HIV 1/2 INDEX 0.18 S/CO (<1.00)
[2021-11-14] MEDS: Dextrose 5%-Lactated Ringers 1,000 ML IV SCH (06:17)
[2021-11-14] MEDS: Acetaminophen 325 MG TAB PO PRN (06:25)
[2021-11-14] MEDS: Labetalol HCl 100 MG/20 ML VIAL SLOW IVP PRN (08:07)
[2021-11-14] MEDS: predniSONE 5 MG TAB PO SCH (08:43)
[2021-11-14] MEDS: Dronabinol 2.5 MG CAP PO SCH ×3 (08:43→16:36)
[2021-11-14] MEDS: Carvedilol 25 MG TAB PO SCH ×2 (08:43→16:25)
[2021-11-14] MEDS: Allopurinol 100 MG TAB PO SCH (08:43)
[2021-11-14] MEDS: Folic Acid 1 MG TAB PO SCH (08:44)
[2021-11-14] MEDS: busPIRone HCl 5 MG TAB PO SCH ×3 (08:44→21:17)
[2021-11-14] MEDS: Cholecalciferol 1,000 UNITS (25 MCG) TAB PO SCH (08:44)
[2021-11-14] MEDS: Famotidine 20 MG TAB PO SCH (08:44)
[2021-11-14] MEDS: Insulin Glargine 30 UNITS/0.3 ML VIAL SC SCH (08:44)
[2021-11-14] MEDS: Amlodipine 10 MG TAB PO SCH (08:44)
[2021-11-14] MEDS: Torsemide 20 MG TAB PO SCH (08:45)
[2021-11-14] MEDS: Oxybutynin 5 MG TAB PO SCH ×3 (08:45→21:17)
[2021-11-14] MEDS: Tacrolimus 1 MG CAP PO SCH ×2 (08:45→21:17)
[2021-11-14] MEDS: Iron, Sodium Ferric Gluconate 250 MG in Sodium Chloride 0.9% 250 ML 250 ML IVPB SCH (09:20)
[2021-11-14] MEDS ORDERED: Midazolam HCl 2 mg/2 ml Vial SLOW IVP PRN (15:42)
[2021-11-14] MEDS: hydrALAZINE 20 MG/ML VIAL SLOW IVP PRN (21:20)
[2021-11-15] MEDS: Nitroglycerin 2% Ointment 1 INCH/1 GM Packet TOP SCH ×4 (01:31→23:49)
[2021-11-15] MEDS: cefTRIAXone\\ROCEPHIN 1 GM in Sodium Chloride 0.9% 100 ML IVPB SCH (05:26)
[2021-11-15] MEDS: predniSONE 5 MG TAB PO SCH (08:59)
[2021-11-15] MEDS: Carvedilol 25 MG TAB PO SCH ×2 (08:59→17:10)
[2021-11-15] MEDS: Dronabinol 2.5 MG CAP PO SCH ×3 (09:00→15:16)
[2021-11-15] MEDS: Folic Acid 1 MG TAB PO SCH (09:01)
[2021-11-15] MEDS: Allopurinol 100 MG TAB PO SCH (09:02)
[2021-11-15] MEDS: Tacrolimus 1 MG CAP PO SCH ×2 (09:02→20:51)
[2021-11-15] MEDS: Oxybutynin 5 MG TAB PO SCH ×3 (09:02→20:51)
[2021-11-15] MEDS: Torsemide 20 MG TAB PO SCH (09:03)
[2021-11-15] MEDS: Amlodipine 10 MG TAB PO SCH (10:08)
[2021-11-15] MEDS: Iron, Sodium Ferric Gluconate 250 MG in Sodium Chloride 0.9% 250 ML 250 ML IVPB SCH (10:09)
[2021-11-15] MEDS: Cholecalciferol 1,000 UNITS (25 MCG) TAB PO SCH (10:09)
[2021-11-15] MEDS: busPIRone HCl 5 MG TAB PO SCH ×3 (10:09→20:51)
[2021-11-15] MEDS: Dextrose 5%-Lactated Ringers 1,000 ML IV SCH (10:11)
[2021-11-15] MEDS: HumaLOG 300 UNITS/3 ML VIAL SC PRN (16:09)
[2021-11-15] MEDS: Acetaminophen 325 MG TAB PO PRN (20:57)
[2021-11-15] MEDS: traZODone HCl 50 MG TAB PO PRN (20:58)
[2021-11-16 05:45] LABS: INR-International Normal Ratio 1.3; Prothrombin Time 16.3 sec (12.0-14.7)
[2021-11-16 05:46] LABS: PTT 45.5 sec (22.9-36.1)
[2021-11-16 05:51] LABS: ALT (SGPT) 22 U/L (8-55); AST (SGOT) 32 U/L (5-34); Albumin 2.2 g/dL (3.4-4.8); Alkaline Phosphatase 107 U/L (40-110); Anion Gap 10 mmol/L (10-20); BUN (Urea Nitrogen) 22 mg/dL (9.8-20.1); Bilirubin, Total 0.2 mg/dL (0.2-1.2); CRP (Inflammatory) 1.73 mg/dL (= or < 0.5); Calc. Creatinine Clearance 28 mL/min (70-130); Calcium 7.5 mg/dL (7.8-10.44); Carbon Dioxide 22 mmol/L (23-31); Chloride 111 mmol/L (98-107); Estimated GFR 53; Globulin 2.1 g/dL (2.4-3.5); Glucose 123 mg/dL (80-115); Potassium 3.8 mmol/L (3.5-5.1); Protein, Total 4.3 g/dL (5.8-8.1); Sodium 139 mmol/L (136-145)
[2021-11-16] MEDS: Dextrose 5%-Lactated Ringers 1,000 ML IV SCH (06:22)
[2021-11-16] MEDS: cefTRIAXone\\ROCEPHIN 1 GM in Sodium Chloride 0.9% 100 ML IVPB SCH (06:22)
[2021-11-16 06:54] LABS: Anisocytosis SLIGHT = 6-15 cells (100X) (0-5/hpf); Band 5 % (5-11); Eosinophils 2 % (0-10); Hemoglobin 6.2 g/dL (12.0-16.0); Lymphocytes 44 % (21-51); MDiff Complete? YES; Mean Corpuscular HGB CONC 31.3 g/dL (32.0-36.0); Mean Corpuscular Hemoglobin 32.4 pg (27.0-31.0); Mean Platelet Volume 8.6 fL (7.4-10.4); Monocytes 2 % (0-10); Neutrophil 46 % (42-75); Platelet Count 211 thou/uL (130-400); RBC Distribution Width 16.7 % (11.5-14.5); Red Blood Cell (RBC) Count 1.92 mill/uL (4.20-5.40); White Blood Cell (WBC) Count 2.2 thou/uL (4.8-10.8)
[2021-11-16] MEDS: Nitroglycerin 2% Ointment 1 INCH/1 GM Packet TOP SCH ×3 (08:38→23:36)
[2021-11-16] MEDS: predniSONE 5 MG TAB PO SCH (08:39)
[2021-11-16] MEDS: Dronabinol 2.5 MG CAP PO SCH ×3 (08:39→15:28)
[2021-11-16] MEDS: Carvedilol 25 MG TAB PO SCH ×2 (08:39→16:28)
[2021-11-16] MEDS: Tacrolimus 1 MG CAP PO SCH ×2 (10:16→21:14)
[2021-11-16] MEDS: Torsemide 20 MG TAB PO SCH (10:16)
[2021-11-16] MEDS: Amlodipine 10 MG TAB PO SCH (10:16)
[2021-11-16] MEDS: Folic Acid 1 MG TAB PO SCH (10:20)
[2021-11-16] MEDS: busPIRone HCl 5 MG TAB PO SCH ×3 (10:20→21:13)
[2021-11-16] MEDS: Cholecalciferol 1,000 UNITS (25 MCG) TAB PO SCH (10:20)
[2021-11-16] MEDS: Famotidine 20 MG TAB PO SCH (10:20)
[2021-11-16] MEDS: Allopurinol 100 MG TAB PO SCH (10:20)
[2021-11-16] MEDS: Oxybutynin 5 MG TAB PO SCH ×3 (10:22→21:13)
[2021-11-16] MEDS: Iron, Sodium Ferric Gluconate 250 MG in Sodium Chloride 0.9% 250 ML 250 ML IVPB SCH (10:33)
[2021-11-16] MEDS: HumaLOG 300 UNITS/3 ML VIAL SC PRN (16:28)
[2021-11-16] MEDS: traZODone HCl 50 MG TAB PO PRN (21:13)
[2021-11-16] MEDS: Labetalol HCl 100 MG/20 ML VIAL SLOW IVP PRN (21:30)
[2021-11-16] MEDS: hydrALAZINE 20 MG/ML VIAL SLOW IVP PRN (22:19)
[2021-11-17] MEDS: Dextrose 5%-Lactated Ringers 1,000 ML IV SCH (04:11)
[2021-11-17] MEDS: hydrALAZINE 20 MG/ML VIAL SLOW IVP PRN (04:11)
[2021-11-17] MEDS: cefTRIAXone\\ROCEPHIN 1 GM in Sodium Chloride 0.9% 100 ML IVPB SCH (05:15)
[2021-11-17 06:16] LABS: #Lymphocytes 1.3 thou/uL (1.20-3.40); #Monocytes 0.2 thou/uL (0.11-0.59); #Neutrophils 1.2 thou/uL (1.40-6.50); %Eosinophils 1.5 % (0.0-10.0); %Lymphocytes 45.7 % (21.0-51.0); %Monocytes 7.6 % (0.0-10.0); %Neutrophils 44.3 % (42.0-75.0); Hemoglobin 9.1 g/dL (12.0-16.0); Mean Corpuscular HGB CONC 33.1 g/dL (32.0-36.0); Mean Corpuscular Hemoglobin 33.1 pg (27.0-31.0); Mean Platelet Volume 8.3 fL (7.4-10.4); Platelet Count 262 thou/uL (130-400); RBC Distribution Width 16.7 % (11.5-14.5); Red Blood Cell (RBC) Count 2.75 mill/uL (4.20-5.40); White Blood Cell (WBC) Count 2.8 thou/uL (4.8-10.8)
[2021-11-17 06:24] LABS: Anion Gap 11 mmol/L (10-20); BUN (Urea Nitrogen) 23 mg/dL (9.8-20.1); Calc. Creatinine Clearance 26 mL/min (70-130); Calcium 7.8 mg/dL (7.8-10.44); Carbon Dioxide 22 mmol/L (23-31); Chloride 111 mmol/L (98-107); Estimated GFR 50; Glucose 126 mg/dL (80-115); Magnesium 1.9 mg/dL (1.6-2.6); Potassium 4.1 mmol/L (3.5-5.1); Sodium 140 mmol/L (136-145)
[2021-11-17] MEDS: cloNIDine 0.1mg/24 Hour PATCH TD SCH (08:52)
[2021-11-17] MEDS: Tacrolimus 1 MG CAP PO SCH ×2 (08:58→21:05)
[2021-11-17] MEDS: Carvedilol 25 MG TAB PO SCH ×2 (09:01→17:18)
[2021-11-17] MEDS: Torsemide 20 MG TAB PO SCH (09:02)
[2021-11-17] MEDS: Amlodipine 10 MG TAB PO SCH (09:03)
[2021-11-17] MEDS: predniSONE 5 MG TAB PO SCH (09:04)
[2021-11-17] MEDS: Oxybutynin 5 MG TAB PO SCH ×3 (09:06→21:06)
[2021-11-17] MEDS: Nitroglycerin 2% Ointment 1 INCH/1 GM Packet TOP SCH ×3 (09:08→23:56)
[2021-11-17] MEDS: Allopurinol 100 MG TAB PO SCH (09:08)
[2021-11-17] MEDS: Folic Acid 1 MG TAB PO SCH (09:09)
[2021-11-17] MEDS: Cholecalciferol 1,000 UNITS (25 MCG) TAB PO SCH (09:09)
[2021-11-17] MEDS: busPIRone HCl 5 MG TAB PO SCH ×2 (09:11→14:12)
[2021-11-17] MEDS: Dronabinol 2.5 MG CAP PO SCH ×3 (09:44→14:26)
[2021-11-17] MEDS: Acetaminophen 325 MG TAB PO PRN (09:44)
[2021-11-17] MEDS ORDERED: cloNIDine 0.2mg/24 Hour PATCH TD SCH (11:45)
[2021-11-17] MEDS ORDERED: Epoetin (ESRD) 10,000 UNITS/ML VIAL SC SCH (12:00)
[2021-11-17] MEDS: Linezolid 600 MG TAB PO SCH (21:05)
[2021-11-18] MEDS: Labetalol HCl 100 MG/20 ML VIAL SLOW IVP PRN (03:57)
[2021-11-18] MEDS ORDERED: cloNIDine 0.3mg/24 Hour PATCH TD SCH (09:00)
[2021-11-18] MEDS ORDERED: hydrALAZINE 25 MG TAB PO SCH (09:00)
[2021-11-18] MEDS ORDERED: NIFEdipine XL 30 MG TAB PO SCH (09:00)
[2021-11-18] MEDS: Dronabinol 2.5 MG CAP PO SCH (09:20)
[2021-11-18] MEDS: predniSONE 5 MG TAB PO SCH (09:21)
[2021-11-18] MEDS: Carvedilol 25 MG TAB PO SCH (09:21)
[2021-11-18 09:22] VITALS: TEMP 97.7
[2021-11-18] MEDS: Tacrolimus 1 MG CAP PO SCH (09:30)
[2021-11-18] MEDS: Allopurinol 100 MG TAB PO SCH (09:36)
[2021-11-18] MEDS: Oxybutynin 5 MG TAB PO SCH (09:37)
[2021-11-18] MEDS: Cholecalciferol 1,000 UNITS (25 MCG) TAB PO SCH (09:37)
[2021-11-18] MEDS: Folic Acid 1 MG TAB PO SCH (09:37)
[2021-11-18] MEDS: Famotidine 20 MG TAB PO SCH (09:37)
[2021-11-18] MEDS: Torsemide 20 MG TAB PO SCH (09:37)
[2021-11-18] MEDS: Acetaminophen 325 MG TAB PO PRN (09:53)
[2021-11-18] MEDS: Linezolid 600 MG TAB PO SCH (09:54)
[2021-11-18 13:15] VITALS: BP 178/70
[2021-11-24] MEDS ORDERED: cloNIDine 0.2mg/24 Hour PATCH TD SCH (09:00)
== END 2021-11-18 13:30 | DRG 689 ==
LOC: ERS 11:11 → NEURO 18:13 → OBSVTOIN 10-29 17:52 → NEURO 10-30 07:42 → MSONC 10-31 18:48
PROVIDERS: ADMIT Family Medicine; ATTEND Family Medicine
PROC: 30233N1 Transfusion of Nonautologous Red Blood Cells into Peripheral Vein, Percutaneous Approach (ICD-10-PCS; principal; 2021-11-16)
DX: N39.0 Urinary tract infection, site not specified (principal); E43 Unspecified severe protein-calorie malnutrition; G93.41 Metabolic encephalopathy; F01.511 Vascular dementia, unspecified severity, with agitation; F05 Delirium due to known physiological condition; Z20.822 Contact with and (suspected) exposure to COVID-19; N18.4 Chronic kidney disease, stage 4 (severe); T86.12 Kidney transplant failure; Z16.21 Resistance to vancomycin; I31.39 Other pericardial effusion (noninflammatory); Z68.1 Body mass index [BMI] 19.9 or less, adult; C79.31 Secondary malignant neoplasm of brain; C64.2 Malignant neoplasm of left kidney, except renal pelvis; I13.2 Hypertensive heart and chronic kidney disease with heart failure and with stage 5 chronic kidney disease, or end stage renal disease; T86.19 Other complication of kidney transplant; N17.9 Acute kidney failure, unspecified; E87.20 Acidosis, unspecified; R64 Cachexia; A04.72 Enterocolitis due to Clostridium difficile, not specified as recurrent; E87.3 Alkalosis; E11.22 Type 2 diabetes mellitus with diabetic chronic kidney disease; Y83.0 Surgical operation with transplant of whole organ as the cause of abnormal reaction of the patient, or of later complication, without mention of misadventure at the time of the procedure; B95.2 Enterococcus as the cause of diseases classified elsewhere; D53.9 Nutritional anemia, unspecified; E11.649 Type 2 diabetes mellitus with hypoglycemia without coma; F32.A Depression, unspecified; E87.6 Hypokalemia; N28.1 Cyst of kidney, acquired; I50.9 Heart failure, unspecified; M10.9 Gout, unspecified; E87.5 Hyperkalemia; E78.5 Hyperlipidemia, unspecified; R29.6 Repeated falls; E86.9 Volume depletion, unspecified; D63.1 Anemia in chronic kidney disease; R62.7 Adult failure to thrive; Z91.81 History of falling; Z88.6 Allergy status to analgesic agent; Z88.3 Allergy status to other anti-infective agents; Z88.5 Allergy status to narcotic agent; Z88.2 Allergy status to sulfonamides; Z88.8 Allergy status to other drugs, medicaments and biological substances; Z85.528 Personal history of other malignant neoplasm of kidney; Z80.9 Family history of malignant neoplasm, unspecified; Z79.4 Long term (current) use of insulin; Z87.11 Personal history of peptic ulcer disease; Z98.49 Cataract extraction status, unspecified eye; Z98.890 Other specified postprocedural states; Z79.899 Other long term (current) drug therapy; Z79.52 Long term (current) use of systemic steroids; Z87.440 Personal history of urinary (tract) infections
CPT/HCPCS: 36415; 36416; 36430; 70450; 71045; 74018; 74176; 76705; 80048; 80053; 80061; 81001; 81003; 81015; 82607; 82728; 83540; 83550; 83735; 83880; 84100; 84443; 85025; 85046; 85610; 85652; 85730; 86140; 86780; 86850; 86900; 86901; 87086; 87186; 87389; 87811; 93306; 95712; 95819; 95957; 96365; 96372; 96375; 96376; G0378; J0360; J0696; J1630; J1644; J1815; J1885; J2060; J2250; J2405; J2550; J2916; J3475; J3490; J7050; J7070; J7507; J7512; P9016; Q0167; Q4081; S0028; U0003; U0005

== ENCOUNTER 2021-11-21 14:02 | Inpatient (IN) | payer MEDICARE, MEDICAID ==
[2021-11-21 15:07] LABS: #Eosinphils 0.1 thou/uL (0.0-0.7); #Lymphocytes 1.1 thou/uL (1.20-3.40); #Monocytes 0.2 thou/uL (0.11-0.59); #Neutrophils 2.3 thou/uL (1.40-6.50); %Basophils 0.4 % (0.0-1.0); %Eosinophils 3.6 % (0.0-10.0); %Lymphocytes 30.3 % (21.0-51.0); %Monocytes 4.1 % (0.0-10.0); %Neutrophils 61.7 % (42.0-75.0); Hemoglobin 10.4 g/dL (12.0-16.0); Mean Corpuscular HGB CONC 32.9 g/dL (32.0-36.0); Mean Corpuscular Hemoglobin 32.7 pg (27.0-31.0); Mean Corpuscular Volume 99.3 fL (78.0-98.0); Mean Platelet Volume 9.1 fL (7.4-10.4); Platelet Count 233 thou/uL (130-400); RBC Distribution Width 16.5 % (11.5-14.5); Red Blood Cell (RBC) Count 3.18 mill/uL (4.20-5.40); White Blood Cell (WBC) Count 3.7 thou/uL (4.8-10.8)
[2021-11-21 15:34] LABS: ALT (SGPT) 13 U/L (8-55); AST (SGOT) 25 U/L (5-34); Albumin 2.9 g/dL (3.4-4.8); Alkaline Phosphatase 95 U/L (40-110); Anion Gap 11 mmol/L (10-20); BUN (Urea Nitrogen) 41 mg/dL (9.8-20.1); Bilirubin, Total 0.9 mg/dL (0.2-1.2); Calc. Creatinine Clearance 0 mL/min (70-130); Calcium 8.3 mg/dL (7.8-10.44); Carbon Dioxide 22 mmol/L (23-31); Chloride 111 mmol/L (98-107); Estimated GFR 37; Globulin 2.5 g/dL (2.4-3.5); Glucose 192 mg/dL (80-115); Potassium 4.7 mmol/L (3.5-5.1); Protein, Total 5.4 g/dL (5.8-8.1); Sodium 139 mmol/L (136-145)
[2021-11-21 17:06] LABS: Bacteria/HPF Rare-Few HPF (None Seen); Bilirubin Negative (Negative); Blood, Urine Negative (Negative); Clarity Clear (Clear); Glucose, Urine (Dipstick) Normal (Negative); Ketone, Urine Negative (Negative); Leukocyte Negative Leu/uL (Negative); Nitrite Negative (Negative); Protein, Urine (Dipstick) 300 mg/dL (Neg-Trace); RBC/HPF 0-3 HPF (0-3); Squamous Epithelial None Seen HPF (0-3); Urobilinogen Normal mg/dL (Less than 2); pH, Urine 6.5 (5.0-9.0)
[2021-11-21] MEDS ORDERED: Albuterol 200 PUFF (6.7GM INHALER) INH PRN (19:04)
[2021-11-21] MEDS ORDERED: Lidocaine 5% Patch TD PRN (19:04)
[2021-11-21] MEDS ORDERED: HYDROcodone/Acetaminophen 5/325 mg Tablet PO PRN (19:04)
[2021-11-21] MEDS ORDERED: Melatonin 3 MG TAB PO PRN (19:04)
[2021-11-21] MEDS ORDERED: hydrALAZINE 25 MG TAB PO SCH (21:00)
[2021-11-21] MEDS ORDERED: Haloperidol Lactate 5 MG/ML VIAL ONE (21:05)
[2021-11-21] MEDS: Tacrolimus 1 MG CAP PO SCH (23:54)
[2021-11-22] MEDS ORDERED: hydrALAZINE 20 MG/ML VIAL SLOW IVP SCH (00:45)
[2021-11-22] MEDS ORDERED: Carvedilol 25 MG TAB PO SCH (00:45)
[2021-11-22] MEDS: hydrALAZINE 20 MG/ML VIAL SLOW IVP PRN ×2 (05:47→12:13)
[2021-11-22 06:38] LABS: #Eosinphils 0.1 thou/uL (0.0-0.7); #Lymphocytes 1.6 thou/uL (1.20-3.40); #Monocytes 0.2 thou/uL (0.11-0.59); #Neutrophils 3.1 thou/uL (1.40-6.50); %Basophils 0.4 % (0.0-1.0); %Eosinophils 2.6 % (0.0-10.0); %Lymphocytes 31.2 % (21.0-51.0); %Monocytes 4.7 % (0.0-10.0); %Neutrophils 61.1 % (42.0-75.0); Mean Corpuscular HGB CONC 32.2 g/dL (32.0-36.0); Mean Corpuscular Hemoglobin 32.3 pg (27.0-31.0); Mean Platelet Volume 8.6 fL (7.4-10.4); Platelet Count 247 thou/uL (130-400); RBC Distribution Width 16.4 % (11.5-14.5); Red Blood Cell (RBC) Count 3.41 mill/uL (4.20-5.40); White Blood Cell (WBC) Count 5.1 thou/uL (4.8-10.8)
[2021-11-22 06:49] LABS: Anion Gap 14 mmol/L (10-20); BUN (Urea Nitrogen) 37 mg/dL (9.8-20.1); Calc. Creatinine Clearance 32 mL/min (70-130); Calcium 8.3 mg/dL (7.8-10.44); Carbon Dioxide 18 mmol/L (23-31); Chloride 112 mmol/L (98-107); Estimated GFR 45; Glucose 150 mg/dL (80-115); Potassium 4.5 mmol/L (3.5-5.1); Sodium 139 mmol/L (136-145)
[2021-11-22] MEDS ORDERED: Transdermal Patch Removal TOP PRN (08:00)
[2021-11-22] MEDS ORDERED: cloNIDine 0.3mg/24 Hour PATCH TD SCH (09:00)
[2021-11-22] MEDS ORDERED: NIFEdipine XL 30 MG TAB PO SCH (09:00)
[2021-11-22] MEDS: Famotidine 20 MG TAB PO SCH ×2 (09:53→10:00)
[2021-11-22] MEDS: busPIRone HCl 5 MG TAB PO SCH ×4 (09:53→21:17)
[2021-11-22] MEDS: NIFEdipine XL 60 MG TAB PO SCH ×3 (09:53→15:06)
[2021-11-22] MEDS: Carvedilol 25 MG TAB PO SCH ×4 (09:54→17:00)
[2021-11-22] MEDS: predniSONE 5 MG TAB PO SCH ×3 (09:54→15:01)
[2021-11-22] MEDS: Dronabinol 2.5 MG CAP PO SCH ×3 (10:00→15:51)
[2021-11-22] MEDS: Tacrolimus 1 MG CAP PO SCH ×3 (10:00→21:17)
[2021-11-22] MEDS ORDERED: Acetaminophen 650 MG/20.3 ML UDCUP PO PRN (13:34)
[2021-11-22] MEDS: Labetalol HCl 100 MG/20 ML VIAL SLOW IVP PRN (13:37)
[2021-11-23 08:53] LABS: Anion Gap 14 mmol/L (10-20); BUN (Urea Nitrogen) 46 mg/dL (9.8-20.1); Calc. Creatinine Clearance 19 mL/min (70-130); Calcium 8.2 mg/dL (7.8-10.44); Carbon Dioxide 17 mmol/L (23-31); Chloride 111 mmol/L (98-107); Estimated GFR 24; Glucose 238 mg/dL (80-115); Sodium 137 mmol/L (136-145)
[2021-11-23] MEDS: Carvedilol 25 MG TAB PO SCH ×3 (09:22→22:41)
[2021-11-23] MEDS: busPIRone HCl 5 MG TAB PO SCH ×3 (09:23→22:39)
[2021-11-23] MEDS: NIFEdipine XL 60 MG TAB PO SCH (09:23)
[2021-11-23] MEDS: Sertraline 25 MG TAB PO SCH (09:23)
[2021-11-23] MEDS: Tacrolimus 1 MG CAP PO SCH ×2 (09:23→22:41)
[2021-11-23] MEDS: predniSONE 5 MG TAB PO SCH (09:23)
[2021-11-23] MEDS: Dronabinol 2.5 MG CAP PO SCH ×3 (09:24→16:07)
[2021-11-23] MEDS: Pantoprazole 40 MG VIAL IVP SCH (09:24)
[2021-11-23] MEDS ORDERED: Sodium Bicarbonate 75 MEQ in Sodium Chloride 0.45% 1,000 ML IV SCH (10:00)
[2021-11-23] MEDS ORDERED: Haloperidol Lactate 5 MG/ML VIAL ONE (16:08)
[2021-11-23] MEDS ORDERED: Haloperidol Lactate 5 MG/ML VIAL IM SCH (16:15)
[2021-11-24] MEDS: hydrALAZINE 20 MG/ML VIAL SLOW IVP PRN (06:13)
[2021-11-24] MEDS: busPIRone HCl 5 MG TAB PO SCH (08:20)
[2021-11-24] MEDS: NIFEdipine XL 60 MG TAB PO SCH (08:20)
[2021-11-24] MEDS: predniSONE 5 MG TAB PO SCH (08:20)
[2021-11-24] MEDS: Carvedilol 25 MG TAB PO SCH ×2 (08:20→17:00)
[2021-11-24] MEDS: Pantoprazole 40 MG VIAL IVP SCH (08:21)
[2021-11-24] MEDS: Tacrolimus 1 MG CAP PO SCH ×2 (08:21→22:06)
[2021-11-24] MEDS: Sertraline 25 MG TAB PO SCH (08:21)
[2021-11-24 08:31] LABS: Anion Gap 12 mmol/L (10-20); BUN (Urea Nitrogen) 41 mg/dL (9.8-20.1); Calc. Creatinine Clearance 25 mL/min (70-130); Calcium 8.3 mg/dL (7.8-10.44); Carbon Dioxide 21 mmol/L (23-31); Chloride 112 mmol/L (98-107); Estimated GFR 35; Glucose 139 mg/dL (80-115); Potassium 4.5 mmol/L (3.5-5.1); Sodium 140 mmol/L (136-145)
[2021-11-24] MEDS: Dronabinol 2.5 MG CAP PO SCH ×3 (09:11→17:00)
[2021-11-24] MEDS ORDERED: Furosemide 20 MG/2 ML VIAL SLOW IVP SCH (12:30)
[2021-11-24] MEDS ORDERED: Albumin 25% 25 GM/100 ML BOT IVPB SCH (19:00)
[2021-11-24 20:21] LABS: Troponin I Less than 0.010 ng/mL (< 0.028)
[2021-11-25 01:47] LABS: Troponin I Less than 0.010 ng/mL (< 0.028)
[2021-11-25 07:19] LABS: Hemoglobin 8.2 g/dL (12.0-16.0); Mean Corpuscular HGB CONC 32.3 g/dL (32.0-36.0); Mean Corpuscular Hemoglobin 32.8 pg (27.0-31.0); Mean Platelet Volume 8.8 fL (7.4-10.4); Platelet Count 149 thou/uL (130-400); RBC Distribution Width 16.9 % (11.5-14.5)
[2021-11-25 07:45] LABS: Anion Gap 13 mmol/L (10-20); BUN (Urea Nitrogen) 45 mg/dL (9.8-20.1); Calc. Creatinine Clearance 19 mL/min (70-130); Calcium 8.1 mg/dL (7.8-10.44); Carbon Dioxide 16 mmol/L (23-31); Chloride 113 mmol/L (98-107); Estimated GFR 25; Glucose 203 mg/dL (80-115); Potassium 5.1 mmol/L (3.5-5.1); Sodium 137 mmol/L (136-145)
[2021-11-25] MEDS: Sertraline 25 MG TAB PO SCH (08:33)
[2021-11-25] MEDS: predniSONE 5 MG TAB PO SCH (08:33)
[2021-11-25] MEDS: Tacrolimus 1 MG CAP PO SCH ×3 (08:34→23:53)
[2021-11-25] MEDS: Pantoprazole 40 MG VIAL IVP SCH (08:37)
[2021-11-25] MEDS: Dronabinol 2.5 MG CAP PO SCH ×3 (08:37→17:15)
[2021-11-25 09:26] LABS: Band 22 % (5-11); Burr Cells SLIGHT = 2-5 cells (100X) (0-1/hpf); Eosinophils 1 % (0-10); Lymphocytes 22 % (21-51); MDiff Complete? YES; Monocytes 6 % (0-10); Neutrophil 49 % (42-75); Platelet Morphology Comment Appears Adequate; Polychromasia SLIGHT = 2-3 cells (100X) (0-2/hpf)
[2021-11-25] MEDS ORDERED: Furosemide 40 MG TAB PO SCH (09:30)
[2021-11-25] MEDS ORDERED: NIFEdipine XL 30 MG TAB PO SCH (09:30)
[2021-11-25] MEDS ORDERED: Sodium Bicarbonate 150 MEQ in Dextrose 5% in Water 1,000 ML IV SCH (10:00)
[2021-11-25] MEDS: Albumin 25% 25 GM/100 ML BOT IVPB SCH ×2 (11:21→16:36)
[2021-11-25 16:13] LABS: Hemoglobin 7.8 g/dL (12.0-16.0)
[2021-11-25 16:15] LABS: Tacrolimus 3.4 ng/mL (2.0-20.0)
[2021-11-25] MEDS ORDERED: Furosemide 20 MG/2 ML VIAL SLOW IVP SCH (16:15)
[2021-11-25] MEDS: Epoetin (ESRD) 10,000 UNITS/ML VIAL SC SCH (17:14)
[2021-11-25] MEDS ORDERED: Dextrose 5% in Water 1,000 ML IV PRN ×2 (18:08→22:25)
[2021-11-25] MEDS ORDERED: Dextrose 50% Abboject 50 ML SYRINGE SLOW IVP PRN ×2 (18:08→22:25)
[2021-11-25] MEDS: HumaLOG 300 UNITS/3 ML VIAL SC PRN ×2 (18:21→23:53)
[2021-11-25 19:15] LABS: Bacteria/HPF 4+ HPF (None Seen); Bilirubin Negative (Negative); Blood, Urine 3+ (Negative); Clarity Extra Turbid (Clear); Glucose, Urine (Dipstick) Normal (Negative); Ketone, Urine Negative (Negative); Leukocyte 500 Leu/uL (Negative); Nitrite Negative (Negative); Protein, Urine (Dipstick) 300 mg/dL (Neg-Trace); RBC/HPF 21-50 HPF (0-3); Specific Gravity, Urine 1.015 (1.002-1.036); Squamous Epithelial None Seen HPF (0-3); Urobilinogen Normal mg/dL (Less than 2); WBC/HPF Greater than 50 HPF (0-3); pH, Urine 6.5 (5.0-9.0)
[2021-11-25 19:17] LABS: Urine Culture Reflex Yes Yes
[2021-11-25] MEDS: NIFEdipine XL 30 MG TAB PO SCH ×2 (22:03→23:49)
[2021-11-25] MEDS ORDERED: Insulin Regular 300 UNITS/3 ML VIAL SC PRN (22:25)
[2021-11-26] MEDS: cefTRIAXone\\ROCEPHIN 1 GM in Sodium Chloride 0.9% 100 ML IVPB SCH (01:44)
[2021-11-26 04:10] LABS: Anion Gap 13 mmol/L (10-20); BUN (Urea Nitrogen) 49 mg/dL (9.8-20.1); BUN/Creatinine Ratio 24.38; Calc. Creatinine Clearance 20 mL/min (70-130); Calcium 8.8 mg/dL (7.8-10.44); Carbon Dioxide 21 mmol/L (23-31); Chloride 111 mmol/L (98-107); Estimated GFR 26; Glucose 87 mg/dL (80-115); Potassium 4.7 mmol/L (3.5-5.1); Sodium 140 mmol/L (136-145)
[2021-11-26 04:13] LABS: Phosphorus 1.9 mg/dL (2.3-4.7)
[2021-11-26] MEDS: Labetalol HCl 100 MG/20 ML VIAL SLOW IVP PRN ×3 (04:31→22:45)
[2021-11-26] MEDS ORDERED: Furosemide 20 MG/2 ML VIAL SLOW IVP SCH ×2 (05:45→08:00)
[2021-11-26 08:21] LABS: #Eosinphils 0.2 thou/uL (0.0-0.7); #Lymphocytes 1.8 thou/uL (1.20-3.40); #Monocytes 0.4 thou/uL (0.11-0.59); #Neutrophils 5.7 thou/uL (1.40-6.50); %Basophils 0.5 % (0.0-1.0); %Eosinophils 2.4 % (0.0-10.0); %Lymphocytes 21.8 % (21.0-51.0); %Monocytes 4.5 % (0.0-10.0); %Neutrophils 70.8 % (42.0-75.0); Hemoglobin 8.3 g/dL (12.0-16.0); Mean Corpuscular HGB CONC 32.6 g/dL (32.0-36.0); Mean Corpuscular Hemoglobin 32.5 pg (27.0-31.0); Mean Corpuscular Volume 99.9 fL (78.0-98.0); Platelet Count 176 thou/uL (130-400); RBC Distribution Width 17.2 % (11.5-14.5); Red Blood Cell (RBC) Count 2.56 mill/uL (4.20-5.40); White Blood Cell (WBC) Count 8.1 thou/uL (4.8-10.8)
[2021-11-26] MEDS: predniSONE 5 MG TAB PO SCH (10:04)
[2021-11-26] MEDS: NIFEdipine XL 30 MG TAB PO SCH (10:04)
[2021-11-26] MEDS: Dronabinol 2.5 MG CAP PO SCH ×3 (10:04→17:12)
[2021-11-26] MEDS: Tacrolimus 1 MG CAP PO SCH ×2 (10:05→21:18)
[2021-11-26] MEDS: Sertraline 25 MG TAB PO SCH (10:05)
[2021-11-26] MEDS ORDERED: Amino Acids 4.25 %/Dextrose 5% 2,000 ML BAG IV SCH (11:00)
[2021-11-26] MEDS: hydrALAZINE 20 MG/ML VIAL SLOW IVP PRN (11:41)
[2021-11-26] MEDS: Pantoprazole 40 MG VIAL IVP SCH (11:41)
[2021-11-26] MEDS ORDERED: Amino Acids 4.25 %/Dextrose 5% 1,000 ML IV SCH (12:00)
[2021-11-26 14:41] LABS: CMV DNA-PCR Test Negative (Negative)
[2021-11-26] MEDS: Sodium Bicarbonate 150 MEQ in Dextrose 5% in Water 1,000 ML IV SCH (14:48)
[2021-11-26] MEDS ORDERED: Furosemide 40 MG/4 ML VIAL SLOW IVP SCH (18:00)
[2021-11-26] MEDS ORDERED: Albuterol Sulfate 2.5 mg/3 ml Neb NEB PRN (19:28)
[2021-11-26] MEDS ORDERED: Levalbuterol HCl 0.63 MG/3 ML NEB NEB PRN (19:40)
[2021-11-26] MEDS ORDERED: Acetaminophen 650 MG Suppository PR PRN (19:53)
[2021-11-26 20:09] LABS: Actual Bicarbonate (HCO3a) 24.3 mEq/L (22-28); CO2 Tension 33.3 mmHg (35.0-45.0); Calcium, Ionized (arterial) 1.14 mmol/L (1.12-1.30); Carboxyhemoglobin (COHb) 0.7 gm% (0.0-3.0); Hemoglobin (Hb) 9.1 g/dL (12.0-16.0); O2 Tension (PaO2), arterial 78.9 mmHg (> 80.0); Potassium - ABG Lab 4.58 mmol/L (3.70-5.30); pH, Arterial 7.48 (7.35-7.45)
[2021-11-26] MEDS: Acetaminophen 325 MG Suppository PR PRN (21:18)
[2021-11-26 21:31] LABS: ALV-art Gradient 235.975 mmHg (0-20); Puncture Site LRA
[2021-11-27] MEDS: cefTRIAXone\\ROCEPHIN 1 GM in Sodium Chloride 0.9% 100 ML IVPB SCH (01:40)
[2021-11-27] MEDS: Labetalol HCl 100 MG/20 ML VIAL SLOW IVP PRN ×3 (03:06→22:59)
[2021-11-27] MEDS: hydrALAZINE 20 MG/ML VIAL SLOW IVP PRN ×2 (05:11→18:27)
[2021-11-27] MEDS: Pantoprazole 40 MG VIAL IVP SCH (08:48)
[2021-11-27] MEDS: Nitroglycerin 2% Ointment 1 INCH/1 GM Packet TOP SCH ×3 (08:49→22:58)
[2021-11-27] MEDS: cloNIDine 0.3mg/24 Hour PATCH TD SCH (09:25)
[2021-11-27] MEDS: Sertraline 25 MG TAB PO SCH (09:26)
[2021-11-27] MEDS: predniSONE 5 MG TAB PO SCH (09:26)
[2021-11-27] MEDS: Dronabinol 2.5 MG CAP PO SCH ×3 (09:26→16:12)
[2021-11-27] MEDS: Tacrolimus 1 MG CAP PO SCH ×2 (09:27→20:38)
[2021-11-27 12:20] LABS: Albumin 3.5 g/dL (3.4-4.8); Anion Gap 16 mmol/L (10-20); BUN (Urea Nitrogen) 42 mg/dL (9.8-20.1); Calc. Creatinine Clearance 24 mL/min (70-130); Calcium 8.5 mg/dL (7.8-10.44); Carbon Dioxide 22 mmol/L (23-31); Chloride 107 mmol/L (98-107); Estimated GFR 33; Glucose 122 mg/dL (80-115); Phosphorus 2.5 mg/dL (2.3-4.7); Potassium 4.6 mmol/L (3.5-5.1); Sodium 140 mmol/L (136-145)
[2021-11-27 12:41] LABS: #Eosinphils 0.1 thou/uL (0.0-0.7); #Monocytes 0.2 thou/uL (0.11-0.59); #Neutrophils 3.2 thou/uL (1.40-6.50); %Eosinophils 1.9 % (0.0-10.0); %Lymphocytes 22.4 % (21.0-51.0); %Monocytes 4.2 % (0.0-10.0); %Neutrophils 71.5 % (42.0-75.0); Hemoglobin 7.2 g/dL (12.0-16.0); Mean Corpuscular HGB CONC 32.8 g/dL (32.0-36.0); Mean Corpuscular Hemoglobin 32.8 pg (27.0-31.0); Mean Platelet Volume 9.3 fL (7.4-10.4); Platelet Count 138 thou/uL (130-400); RBC Distribution Width 17.9 % (11.5-14.5); Red Blood Cell (RBC) Count 2.18 mill/uL (4.20-5.40); White Blood Cell (WBC) Count 4.5 thou/uL (4.8-10.8)
[2021-11-27] MEDS: metroNIDAZOLE 500 MG in Premix Bag 1 BAG IVPB SCH ×2 (14:16→22:57)
[2021-11-27] MEDS: Sodium Bicarbonate 150 MEQ in Dextrose 5% in Water 1,000 ML IV SCH (14:16)
[2021-11-28] MEDS: cefTRIAXone\\ROCEPHIN 1 GM in Sodium Chloride 0.9% 100 ML IVPB SCH (01:06)
[2021-11-28] MEDS: hydrALAZINE 20 MG/ML VIAL SLOW IVP PRN ×3 (01:06→16:14)
[2021-11-28 04:15] LABS: Albumin 2.9 g/dL (3.4-4.8); Anion Gap 13 mmol/L (10-20); BUN (Urea Nitrogen) 42 mg/dL (9.8-20.1); BUN/Creatinine Ratio 28.38; Calc. Creatinine Clearance 27 mL/min (70-130); Calcium 8.1 mg/dL (7.8-10.44); Carbon Dioxide 25 mmol/L (23-31); Chloride 108 mmol/L (98-107); Estimated GFR 38; Glucose 108 mg/dL (80-115); Phosphorus 2.8 mg/dL (2.3-4.7); Potassium 4.3 mmol/L (3.5-5.1); Sodium 142 mmol/L (136-145)
[2021-11-28] MEDS: metroNIDAZOLE 500 MG in Premix Bag 1 BAG IVPB SCH (05:54)
[2021-11-28] MEDS ORDERED: Meropenem 1 GM in Sodium Chloride 0.9% 100 ML IVPB SCH ×2 (07:15→14:00)
[2021-11-28] MEDS: Dronabinol 2.5 MG CAP PO SCH ×3 (08:49→16:07)
[2021-11-28] MEDS: Nitroglycerin 2% Ointment 1 INCH/1 GM Packet TOP SCH ×3 (08:49→23:23)
[2021-11-28] MEDS: Pantoprazole 40 MG VIAL IVP SCH (08:49)
[2021-11-28] MEDS: predniSONE 5 MG TAB PO SCH (08:49)
[2021-11-28] MEDS: Sertraline 25 MG TAB PO SCH (08:50)
[2021-11-28] MEDS: Tacrolimus 1 MG CAP PO SCH ×2 (08:50→21:07)
[2021-11-28] MEDS: Labetalol HCl 100 MG/20 ML VIAL SLOW IVP PRN ×5 (08:51→23:54)
[2021-11-28] MEDS ORDERED: Amino Acids 4.25 %/Dextrose 5% 2,000 ML BAG IV SCH (11:00)
[2021-11-28] MEDS: Amino Acids 4.25 %/Dextrose 5% 1,000 ML IV SCH (12:17)
[2021-11-28] MEDS: Sodium Bicarbonate 150 MEQ in Dextrose 5% in Water 1,000 ML IV SCH (13:40)
[2021-11-28] MEDS: Meropenem 500 MG in Sodium Chloride 0.9% 100 ML IVPB SCH (20:07)
[2021-11-28] MEDS: Acetaminophen 325 MG Suppository PR PRN (20:29)
[2021-11-28] MEDS: Enalaprilat Dihydrate 1.25 MG/ML VIAL SLOW IVP PRN (21:03)
[2021-11-28 21:36] LABS: HSV 1 - DNA Negative (Negative); HSV 2 - DNA Negative (Negative)
[2021-11-29] MEDS: Enalaprilat Dihydrate 1.25 MG/ML VIAL SLOW IVP PRN ×2 (00:05→06:14)
[2021-11-29] MEDS: hydrALAZINE 20 MG/ML VIAL SLOW IVP PRN ×3 (03:18→18:30)
[2021-11-29] MEDS: Acetaminophen 325 MG Suppository PR PRN (03:22)
[2021-11-29 04:05] LABS: Anion Gap 11 mmol/L (10-20); BUN (Urea Nitrogen) 35 mg/dL (9.8-20.1); Calc. Creatinine Clearance 30 mL/min (70-130); Calcium 8.1 mg/dL (7.8-10.44); Carbon Dioxide 27 mmol/L (23-31); Chloride 105 mmol/L (98-107); Estimated GFR 43; Glucose 157 mg/dL (80-115); Potassium 3.3 mmol/L (3.5-5.1); Sodium 140 mmol/L (136-145)
[2021-11-29 04:28] LABS: #Eosinphils 0.1 thou/uL (0.0-0.7); #Monocytes 0.2 thou/uL (0.11-0.59); #Neutrophils 1.9 thou/uL (1.40-6.50); %Basophils 0.3 % (0.0-1.0); %Eosinophils 2.5 % (0.0-10.0); %Lymphocytes 32.4 % (21.0-51.0); %Monocytes 4.9 % (0.0-10.0); %Neutrophils 59.9 % (42.0-75.0); Anisocytosis SLIGHT = 6-15 cells (100X) (0-5/hpf); Hemoglobin 7.5 g/dL (12.0-16.0); MDiff Complete? YES; Mean Corpuscular HGB CONC 31.8 g/dL (32.0-36.0); Mean Corpuscular Hemoglobin 32.1 pg (27.0-31.0); Platelet Count 121 thou/uL (130-400); Platelet Morphology Comment Appears Adequate; RBC Distribution Width 18.4 % (11.5-14.5); Red Blood Cell (RBC) Count 2.35 mill/uL (4.20-5.40); White Blood Cell (WBC) Count 3.1 thou/uL (4.8-10.8)
[2021-11-29] MEDS: Labetalol HCl 100 MG/20 ML VIAL SLOW IVP PRN ×2 (06:35→10:33)
[2021-11-29] MEDS ORDERED: Potassium Chloride 20 MEQ in Premix Bag 1 BAG IVPB SCH (08:00)
[2021-11-29] MEDS: Meropenem 500 MG in Sodium Chloride 0.9% 100 ML IVPB SCH ×2 (08:22→20:45)
[2021-11-29] MEDS: cloNIDine 0.1mg/24 Hour PATCH TD SCH (08:22)
[2021-11-29] MEDS: Pantoprazole 40 MG VIAL IVP SCH (08:23)
[2021-11-29] MEDS: Tacrolimus 1 MG CAP PO SCH ×2 (08:23→20:39)
[2021-11-29] MEDS: Nitroglycerin 2% Ointment 1 INCH/1 GM Packet TOP SCH ×2 (08:23→16:30)
[2021-11-29 08:24] LABS: Phosphorus 2.1 mg/dL (2.3-4.7)
[2021-11-29] MEDS: Sertraline 25 MG TAB PO SCH (08:25)
[2021-11-29] MEDS: predniSONE 5 MG TAB PO SCH (08:25)
[2021-11-29] MEDS: Dronabinol 2.5 MG CAP PO SCH ×3 (08:49→16:33)
[2021-11-29] MEDS ORDERED: Potassium Phosphate 22 MMOL in Sodium Chloride 0.9% 250 ML 250 ML IVPB SCH (09:00)
[2021-11-29] MEDS: Amino Acids 4.25 %/Dextrose 5% 1,000 ML IV SCH (16:40)
[2021-11-29] MEDS: HumaLOG 300 UNITS/3 ML VIAL SC PRN (21:51)
[2021-11-30] MEDS: Nitroglycerin 2% Ointment 1 INCH/1 GM Packet TOP SCH ×3 (00:31→17:58)
[2021-11-30 04:04] LABS: #Monocytes 0.1 thou/uL (0.11-0.59); #Neutrophils 1.1 thou/uL (1.40-6.50); %Basophils 0.5 % (0.0-1.0); %Eosinophils 1.7 % (0.0-10.0); %Lymphocytes 43.4 % (21.0-51.0); %Monocytes 5.1 % (0.0-10.0); %Neutrophils 49.4 % (42.0-75.0); Hemoglobin 7.1 g/dL (12.0-16.0); Mean Corpuscular HGB CONC 31.5 g/dL (32.0-36.0); Mean Platelet Volume 9.7 fL (7.4-10.4); Platelet Count 145 thou/uL (130-400); RBC Distribution Width 17.8 % (11.5-14.5); Red Blood Cell (RBC) Count 2.21 mill/uL (4.20-5.40); White Blood Cell (WBC) Count 2.2 thou/uL (4.8-10.8)
[2021-11-30 04:55] LABS: Anion Gap 12 mmol/L (10-20); BUN (Urea Nitrogen) 40 mg/dL (9.8-20.1); Calc. Creatinine Clearance 28 mL/min (70-130); Calcium 7.9 mg/dL (7.8-10.44); Carbon Dioxide 25 mmol/L (23-31); Chloride 104 mmol/L (98-107); Estimated GFR 40; Glucose 168 mg/dL (80-115); Potassium 4.1 mmol/L (3.5-5.1); Sodium 137 mmol/L (136-145)
[2021-11-30] MEDS: Pantoprazole 40 MG VIAL IVP SCH (09:56)
[2021-11-30] MEDS: Dronabinol 2.5 MG CAP PO SCH ×3 (09:57→18:10)
[2021-11-30] MEDS: Tacrolimus 1 MG CAP PO SCH ×2 (10:32→21:01)
[2021-11-30] MEDS: Sertraline 25 MG TAB PO SCH (10:32)
[2021-11-30] MEDS: predniSONE 5 MG TAB PO SCH (10:32)
[2021-11-30] MEDS: Meropenem 500 MG in Sodium Chloride 0.9% 100 ML IVPB SCH (13:26)
[2021-11-30] MEDS: Meropenem 1 GM in Sodium Chloride 0.9% 100 ML IVPB SCH (13:35)
[2021-11-30] MEDS: HumaLOG 300 UNITS/3 ML VIAL SC PRN (18:00)
[2021-11-30] MEDS: Labetalol HCl 100 MG/20 ML VIAL SLOW IVP PRN (18:06)
[2021-11-30] MEDS: Acetaminophen 325 MG/10.15 ML UDCUP PO PRN (21:01)
[2021-12-01] MEDS: Nitroglycerin 2% Ointment 1 INCH/1 GM Packet TOP SCH ×3 (01:45→15:49)
[2021-12-01] MEDS: Labetalol HCl 100 MG/20 ML VIAL SLOW IVP PRN (03:38)
[2021-12-01 05:19] LABS: Anion Gap 12 mmol/L (10-20); BUN (Urea Nitrogen) 44 mg/dL (9.8-20.1); Calc. Creatinine Clearance 28 mL/min (70-130); Calcium 7.9 mg/dL (7.8-10.44); Carbon Dioxide 25 mmol/L (23-31); Chloride 104 mmol/L (98-107); Estimated GFR 40; Glucose 161 mg/dL (80-115); Potassium 4.4 mmol/L (3.5-5.1); Sodium 137 mmol/L (136-145)
[2021-12-01 06:25] LABS: Anisocytosis SLIGHT = 6-15 cells (100X) (0-5/hpf); Band 6 % (5-11); Eosinophils 1 % (0-10); Hemoglobin 7.3 g/dL (12.0-16.0); Lymphocytes 57 % (21-51); MDiff Complete? YES; Mean Corpuscular HGB CONC 31.7 g/dL (32.0-36.0); Mean Corpuscular Hemoglobin 32.2 pg (27.0-31.0); Mean Platelet Volume 9.2 fL (7.4-10.4); Neutrophil 36 % (42-75); Platelet Count 182 thou/uL (130-400); RBC Distribution Width 17.5 % (11.5-14.5); Red Blood Cell (RBC) Count 2.26 mill/uL (4.20-5.40); White Blood Cell (WBC) Count 1.8 thou/uL (4.8-10.8)
[2021-12-01] MEDS: Carvedilol 25 MG TAB PO SCH ×2 (07:58→17:04)
[2021-12-01] MEDS ORDERED: cloNIDine 0.1mg/24 Hour PATCH TD SCH (09:00)
[2021-12-01] MEDS: Meropenem 1 GM in Sodium Chloride 0.9% 100 ML IVPB SCH ×3 (09:09→22:49)
[2021-12-01] MEDS ORDERED: Amlodipine 5 MG TAB PO SCH (09:15)
[2021-12-01] MEDS: Dronabinol 2.5 MG CAP PO SCH ×3 (09:16→15:37)
[2021-12-01] MEDS: predniSONE 5 MG TAB PO SCH (09:17)
[2021-12-01] MEDS: Tacrolimus 1 MG CAP PO SCH ×2 (09:17→22:50)
[2021-12-01] MEDS: Sertraline 25 MG TAB PO SCH (09:17)
[2021-12-01] MEDS: Pantoprazole 40 MG VIAL IVP SCH (09:17)
[2021-12-01] MEDS: Acetaminophen 325 MG/10.15 ML UDCUP PO PRN ×2 (10:44→15:48)
[2021-12-01] MEDS ORDERED: Senokot 8.6 MG TAB PO PRN (10:44)
[2021-12-01] MEDS ORDERED: Milk Of Magnesia 30 ML UDCUP PO PRN (10:45)
[2021-12-01 10:48] LABS: Magnesium 1.6 mg/dL (1.6-2.6)
[2021-12-01] MEDS: hydrALAZINE 20 MG/ML VIAL SLOW IVP PRN (15:55)
[2021-12-01] MEDS: HumaLOG 300 UNITS/3 ML VIAL SC PRN ×2 (17:04→22:50)
[2021-12-02] MEDS: Nitroglycerin 2% Ointment 1 INCH/1 GM Packet TOP SCH ×2 (03:20→13:17)
[2021-12-02] MEDS: HumaLOG 300 UNITS/3 ML VIAL SC PRN ×3 (06:25→20:35)
[2021-12-02] MEDS: Dronabinol 2.5 MG CAP PO SCH ×4 (06:41→16:44)
[2021-12-02] MEDS ORDERED: Dronabinol 2.5 MG CAP PO SCH (07:15)
[2021-12-02 08:08] LABS: Anion Gap 11 mmol/L (10-20); BUN (Urea Nitrogen) 52 mg/dL (9.8-20.1); Calc. Creatinine Clearance 31 mL/min (70-130); Calcium 8.2 mg/dL (7.8-10.44); Carbon Dioxide 26 mmol/L (23-31); Chloride 103 mmol/L (98-107); Estimated GFR 45; Glucose 149 mg/dL (80-115); Potassium 4.5 mmol/L (3.5-5.1); Sodium 135 mmol/L (136-145)
[2021-12-02] MEDS: Tacrolimus 1 MG CAP PO SCH ×2 (08:21→20:35)
[2021-12-02] MEDS: Pantoprazole 40 MG VIAL IVP SCH (08:21)
[2021-12-02] MEDS: Carvedilol 25 MG TAB PO SCH ×3 (08:21→17:58)
[2021-12-02] MEDS: Meropenem 1 GM in Sodium Chloride 0.9% 100 ML IVPB SCH ×2 (08:21→20:35)
[2021-12-02] MEDS: Acetaminophen 325 MG/10.15 ML UDCUP PO PRN (08:40)
[2021-12-02] MEDS ORDERED: Amlodipine 5 MG TAB PO SCH (09:00)
[2021-12-02] MEDS ORDERED: Donnatal Elixir 16.2 MG/5 ML UDCUP PO SCH (09:30)
[2021-12-02] MEDS: Sertraline 25 MG TAB PO SCH (12:30)
[2021-12-02] MEDS: predniSONE 5 MG TAB PO SCH (12:30)
[2021-12-02] MEDS: Epoetin (ESRD) 10,000 UNITS/ML VIAL SC SCH (15:28)
[2021-12-02] MEDS: Amino Acids 4.25 %/Dextrose 5% 1,000 ML IV SCH (18:12)
[2021-12-02] MEDS: hydrALAZINE 20 MG/ML VIAL SLOW IVP PRN (18:48)
[2021-12-03] MEDS: hydrALAZINE 20 MG/ML VIAL SLOW IVP PRN ×2 (03:51→11:26)
[2021-12-03 05:54] LABS: Anion Gap 8 mmol/L (10-20); BUN (Urea Nitrogen) 60 mg/dL (9.8-20.1); Calc. Creatinine Clearance 31 mL/min (70-130); Carbon Dioxide 26 mmol/L (23-31); Chloride 105 mmol/L (98-107); Estimated GFR 45; Glucose 234 mg/dL (80-115); Sodium 134 mmol/L (136-145)
[2021-12-03] MEDS: HumaLOG 300 UNITS/3 ML VIAL SC PRN (06:23)
[2021-12-03] MEDS: Acetaminophen 325 MG/10.15 ML UDCUP PO PRN ×2 (06:23→20:34)
[2021-12-03] MEDS: Dronabinol 2.5 MG CAP PO SCH ×5 (06:24→15:49)
[2021-12-03] MEDS: Carvedilol 25 MG TAB PO SCH ×2 (07:37→16:03)
[2021-12-03] MEDS: Meropenem 1 GM in Sodium Chloride 0.9% 100 ML IVPB SCH ×2 (07:46→20:35)
[2021-12-03] MEDS: Pantoprazole 40 MG VIAL IVP SCH (09:00)
[2021-12-03] MEDS: Amlodipine 10 MG TAB PO SCH (09:00)
[2021-12-03] MEDS ORDERED: cloNIDine 0.3mg/24 Hour PATCH TD SCH (09:00)
[2021-12-03] MEDS: Sertraline 25 MG TAB PO SCH (09:00)
[2021-12-03] MEDS: Tacrolimus 1 MG CAP PO SCH ×5 (09:01→21:10)
[2021-12-03] MEDS: predniSONE 5 MG TAB PO SCH ×3 (09:01→16:03)
[2021-12-03] MEDS: cloNIDine 0.3mg/24 Hour PATCH TD SCH (09:38)
[2021-12-03 12:16] LABS: Actual Bicarbonate (HCO3v) 27 mEq/L (22-28); Base Excess 4.6 mEq/L (-2.0 to +3.0); Calcium, Ionized (venous) 1.05 mmol/L (1.16-1.32); Chloride (VBG) 106 mmol/L (98-106); Hemoglobin (Hb) 7.9 g/dL (11.7-16.1); Potassium (VBG) 4.65 mmol/L (3.70-5.30); Sodium 132.1 mmol/L (133-146); pH (venous) 7.56 (7.32-7.43)
[2021-12-03] MEDS: Acetaminophen 650 MG Suppository PR PRN ×2 (12:42→21:09)
[2021-12-03 13:42] LABS: #Eosinphils 0.1 thou/uL (0.0-0.7); #Lymphocytes 1.1 thou/uL (1.20-3.40); #Monocytes 0.1 thou/uL (0.11-0.59); #Neutrophils 1.1 thou/uL (1.40-6.50); %Basophils 0.5 % (0.0-1.0); %Lymphocytes 47.3 % (21.0-51.0); %Monocytes 5.3 % (0.0-10.0); %Neutrophils 43.9 % (42.0-75.0); Hemoglobin 7.3 g/dL (12.0-16.0); Mean Corpuscular HGB CONC 31.2 g/dL (32.0-36.0); Mean Corpuscular Hemoglobin 31.2 pg (27.0-31.0); Mean Platelet Volume 8.6 fL (7.4-10.4); Platelet Count 181 thou/uL (130-400); RBC Distribution Width 17.5 % (11.5-14.5); Red Blood Cell (RBC) Count 2.35 mill/uL (4.20-5.40); White Blood Cell (WBC) Count 2.4 thou/uL (4.8-10.8)
[2021-12-03 13:49] LABS: Magnesium 1.8 mg/dL (1.6-2.6)
[2021-12-03] MEDS ORDERED: Furosemide 40 MG/4 ML VIAL SLOW IVP SCH (14:45)
[2021-12-03 15:32] LABS: Amphetamine Not Detected (NotDetected); Barbiturates Screen Not Detected (NotDetected); Benzodiazepine Screen Not Detected (NotDetected); Cocaine Metabolite Screen Not Detected (NotDetected); Methadone Not Detected (NotDetected); Methamphetamine Not Detected (NotDetected); Opiate Screen Not Detected (NotDetected); Oxycodone Screen Not Detected (NotDetected); Phencyclidine (PCP) Not Detected (NotDetected); THC/Cannabinoid Screen Detected (NotDetected); Tricyclic Screen Not Detected (NotDetected)
[2021-12-03 15:52] LABS: Lactic Acid 0.9 mmol/L (0.5-2.2)
[2021-12-03 15:58] LABS: ALT (SGPT) 7 U/L (8-55); AST (SGOT) 13 U/L (5-34); Albumin 2.8 g/dL (3.4-4.8); Alkaline Phosphatase 90 U/L (40-110); Bilirubin, Direct 0.3 mg/dL (0.1-0.3); Bilirubin, Total 0.6 mg/dL (0.2-1.2); Protein, Total 4.7 g/dL (5.8-8.1)
[2021-12-03] MEDS ORDERED: Electrolyte Replacement Protocol 1 EACH FS SCH (16:01)
[2021-12-03] MEDS ORDERED: Magnesium 2 GM/50 ML(in water) 2 GM in Premix Bag 1 BAG IVPB SCH (18:00)
[2021-12-03] MEDS: PHOS-NAK 1 PKT PACK PO SCH ×2 (20:30→20:35)
[2021-12-03] MEDS ORDERED: Famotidine 20 MG TAB PO SCH (21:00)
[2021-12-03] MEDS: Amino Acids 4.25 %/Dextrose 5% 1,000 ML IV SCH (23:16)
[2021-12-04] MEDS: hydrALAZINE 20 MG/ML VIAL SLOW IVP PRN ×4 (01:41→22:03)
[2021-12-04 04:41] LABS: #Lymphocytes 0.8 thou/uL (1.20-3.40); #Monocytes 0.1 thou/uL (0.11-0.59); #Neutrophils 1.4 thou/uL (1.40-6.50); %Basophils 0.4 % (0.0-1.0); %Eosinophils 0.8 % (0.0-10.0); %Lymphocytes 34.3 % (21.0-51.0); %Monocytes 5.1 % (0.0-10.0); %Neutrophils 59.4 % (42.0-75.0); Hemoglobin 7.9 g/dL (12.0-16.0); Mean Corpuscular Hemoglobin 31.4 pg (27.0-31.0); Mean Corpuscular Volume 98.1 fl (78.0-98.0); Mean Platelet Volume 8.6 fL (7.4-10.4); Platelet Count 193 thou/uL (130-400); RBC Distribution Width 17.7 % (11.5-14.5); Red Blood Cell (RBC) Count 2.52 mill/uL (4.20-5.40); White Blood Cell (WBC) Count 2.4 thou/uL (4.8-10.8)
[2021-12-04 04:56] LABS: Anion Gap 10 mmol/L (10-20); BUN (Urea Nitrogen) 65 mg/dL (9.8-20.1); Calc. Creatinine Clearance 35 mL/min (70-130); Calcium 8.4 mg/dL (7.8-10.44); Carbon Dioxide 25 mmol/L (23-31); Chloride 104 mmol/L (98-107); Estimated GFR 52; Glucose 235 mg/dL (80-115); Magnesium 2.5 mg/dL (1.6-2.6); Phosphorus 2.3 mg/dL (2.3-4.7); Potassium 5.1 mmol/L (3.5-5.1); Sodium 134 mmol/L (136-145)
[2021-12-04] MEDS: Dronabinol 2.5 MG CAP PO SCH ×4 (05:12→16:46)
[2021-12-04] MEDS: Carvedilol 25 MG TAB PO SCH ×3 (09:00→16:52)
[2021-12-04] MEDS: Meropenem 1 GM in Sodium Chloride 0.9% 100 ML IVPB SCH ×3 (09:01→21:19)
[2021-12-04] MEDS: Amlodipine 10 MG TAB PO SCH ×2 (09:01→11:07)
[2021-12-04] MEDS: Saccharomyces boulardii 250 MG CAP PO SCH ×2 (09:02→11:07)
[2021-12-04] MEDS: Pantoprazole 40 MG VIAL IVP SCH (09:02)
[2021-12-04] MEDS: PHOS-NAK 1 PKT PACK PO SCH ×4 (09:02→21:21)
[2021-12-04] MEDS: Sertraline 25 MG TAB PO SCH ×2 (09:02→11:07)
[2021-12-04] MEDS: predniSONE 5 MG TAB PO SCH ×2 (09:02→11:07)
[2021-12-04] MEDS: Tacrolimus 1 MG CAP PO SCH ×3 (09:02→21:22)
[2021-12-04] MEDS: Acetaminophen 325 MG/10.15 ML UDCUP PO PRN (09:05)
[2021-12-04] MEDS: HumaLOG 300 UNITS/3 ML VIAL SC PRN (12:25)
[2021-12-04] MEDS: Acetaminophen 650 MG Suppository PR PRN ×2 (19:48→23:31)
[2021-12-04] MEDS: Labetalol HCl 100 MG/20 ML VIAL SLOW IVP PRN (23:30)
[2021-12-05] MEDS: cloNIDine 0.3mg/24 Hour PATCH TD SCH (00:41)
[2021-12-05] MEDS: cloNIDine 0.1mg/24 Hour PATCH TD SCH (00:42)
[2021-12-05] MEDS: hydrALAZINE 20 MG/ML VIAL SLOW IVP PRN ×4 (00:52→21:58)
[2021-12-05] MEDS: Acetaminophen 650 MG Suppository PR PRN (04:01)
[2021-12-05] MEDS: Amino Acids 4.25 %/Dextrose 5% 1,000 ML IV SCH (05:06)
[2021-12-05 05:46] LABS: Magnesium 2.3 mg/dL (1.6-2.6); Potassium 4.5 mmol/L (3.5-5.1)
[2021-12-05] MEDS: Dronabinol 2.5 MG CAP PO SCH ×3 (06:02→14:27)
[2021-12-05] MEDS ORDERED: cloNIDine 0.3mg/24 Hour PATCH TD SCH (09:00)
[2021-12-05] MEDS: Carvedilol 25 MG TAB PO SCH ×2 (09:01→16:19)
[2021-12-05] MEDS: Amlodipine 10 MG TAB PO SCH (09:01)
[2021-12-05] MEDS: Pantoprazole 40 MG VIAL IVP SCH (09:01)
[2021-12-05] MEDS: PHOS-NAK 1 PKT PACK PO SCH ×5 (09:01→21:59)
[2021-12-05] MEDS: Meropenem 1 GM in Sodium Chloride 0.9% 100 ML IVPB SCH ×2 (09:01→21:59)
[2021-12-05] MEDS: Sertraline 25 MG TAB PO SCH (09:02)
[2021-12-05] MEDS: Saccharomyces boulardii 250 MG CAP PO SCH (09:02)
[2021-12-05] MEDS: predniSONE 5 MG TAB PO SCH (09:02)
[2021-12-05] MEDS: Tacrolimus 1 MG CAP PO SCH ×2 (09:03→21:59)
[2021-12-05] MEDS: Labetalol HCl 100 MG/20 ML VIAL SLOW IVP PRN ×2 (12:06→18:18)
[2021-12-05] MEDS: Acetaminophen 650 MG Suppository PR SCH ×3 (13:20→21:51)
[2021-12-05] MEDS: Bisacodyl 10 MG SUPP PR SCH (17:00)
[2021-12-05] MEDS: FENTANYL 50 MCG/ML 1 ML VIAL SLOW IVP PRN (19:25)
[2021-12-06] MEDS: Acetaminophen 650 MG Suppository PR SCH ×6 (01:35→20:57)
[2021-12-06] MEDS: FENTANYL 50 MCG/ML 1 ML VIAL SLOW IVP PRN ×2 (01:35→13:49)
[2021-12-06] MEDS: Dronabinol 2.5 MG CAP PO SCH ×3 (06:25→15:29)
[2021-12-06 07:09] LABS: Anion Gap 11 mmol/L (10-20); BUN (Urea Nitrogen) 61 mg/dL (9.8-20.1); Calc. Creatinine Clearance 48 mL/min (70-130); Calcium 8.5 mg/dL (7.8-10.44); Carbon Dioxide 23 mmol/L (23-31); Chloride 106 mmol/L (98-107); Estimated GFR 76; Glucose 117 mg/dL (80-115); Potassium 4.5 mmol/L (3.5-5.1); Sodium 135 mmol/L (136-145)
[2021-12-06 07:20] LABS: #Eosinphils 0.1 thou/uL (0.0-0.7); #Monocytes 0.2 thou/uL (0.11-0.59); #Neutrophils 1.6 thou/uL (1.40-6.50); %Basophils 1.1 % (0.0-1.0); %Eosinophils 3.3 % (0.0-10.0); %Lymphocytes 33.7 % (21.0-51.0); %Monocytes 8.3 % (0.0-10.0); %Neutrophils 53.6 % (42.0-75.0); Hemoglobin 7.3 g/dL (12.0-16.0); Mean Corpuscular HGB CONC 32.2 g/dL (32.0-36.0); Mean Corpuscular Hemoglobin 31.4 pg (27.0-31.0); Mean Corpuscular Volume 97.7 fl (78.0-98.0); Mean Platelet Volume 8.7 fL (7.4-10.4); Platelet Count 258 thou/uL (130-400); RBC Distribution Width 18.1 % (11.5-14.5); Red Blood Cell (RBC) Count 2.33 mill/uL (4.20-5.40); White Blood Cell (WBC) Count 2.9 thou/uL (4.8-10.8)
[2021-12-06] MEDS: Lactated Ringer's 1,000 ML IV SCH ×2 (08:33→08:50)
[2021-12-06] MEDS: Pantoprazole 40 MG VIAL IVP SCH (08:35)
[2021-12-06] MEDS: Carvedilol 25 MG TAB PO SCH ×2 (08:36→17:22)
[2021-12-06] MEDS: Amlodipine 10 MG TAB PO SCH (08:36)
[2021-12-06] MEDS: Saccharomyces boulardii 250 MG CAP PO SCH (08:37)
[2021-12-06] MEDS: Sertraline 25 MG TAB PO SCH (08:37)
[2021-12-06] MEDS: Tacrolimus 1 MG CAP PO SCH ×2 (08:37→21:11)
[2021-12-06] MEDS: predniSONE 5 MG TAB PO SCH (08:37)
[2021-12-06] MEDS: Labetalol HCl 100 MG/20 ML VIAL SLOW IVP PRN ×2 (08:40→21:55)
[2021-12-06] MEDS: hydrALAZINE 20 MG/ML VIAL SLOW IVP PRN ×2 (12:18→21:19)
[2021-12-06] MEDS: hydrOXYzine 25 MG TAB PO PRN (14:20)
[2021-12-06] MEDS: Ondansetron PF 4 MG/2 ML Vial IVP PRN (14:20)
[2021-12-06] MEDS: Amino Acids 4.25 %/Dextrose 5% 1,000 ML IV SCH (14:44)
[2021-12-06] MEDS: Bisacodyl 10 MG SUPP PR SCH (17:53)
[2021-12-07] MEDS: FENTANYL 50 MCG/ML 1 ML VIAL SLOW IVP PRN ×3 (00:09→23:32)
[2021-12-07] MEDS: Acetaminophen 650 MG Suppository PR SCH ×6 (00:10→21:49)
[2021-12-07] MEDS: hydrALAZINE 20 MG/ML VIAL SLOW IVP PRN ×4 (00:22→21:49)
[2021-12-07] MEDS: Dronabinol 2.5 MG CAP PO SCH ×3 (07:34→15:29)
[2021-12-07] MEDS: Pantoprazole 40 MG VIAL IVP SCH (08:44)
[2021-12-07] MEDS ORDERED: Nitroglycerin 0.4mg/Hour PATCH TD SCH (09:00)
[2021-12-07] MEDS: Nitroglycerin 2% Ointment 1 INCH/1 GM Packet TOP SCH ×3 (09:04→21:50)
[2021-12-07] MEDS ORDERED: Furosemide 40 MG/4 ML VIAL SLOW IVP SCH (10:45)
[2021-12-07] MEDS: Saccharomyces boulardii 250 MG CAP PO SCH (11:16)
[2021-12-07] MEDS: Amlodipine 10 MG TAB PO SCH (11:16)
[2021-12-07] MEDS: predniSONE 5 MG TAB PO SCH (11:16)
[2021-12-07] MEDS: Sertraline 25 MG TAB PO SCH (11:16)
[2021-12-07] MEDS: Carvedilol 25 MG TAB PO SCH ×2 (11:16→17:00)
[2021-12-07] MEDS: Tacrolimus 1 MG CAP PO SCH ×2 (11:17→21:50)
[2021-12-07 11:52] LABS: Albumin 2.7 g/dL (3.4-4.8); Anion Gap 10 mmol/L (10-20); BUN (Urea Nitrogen) 61 mg/dL (9.8-20.1); BUN/Creatinine Ratio 70.11; Calc. Creatinine Clearance 45 mL/min (70-130); Calcium 8.6 mg/dL (7.8-10.44); Carbon Dioxide 23 mmol/L (23-31); Chloride 106 mmol/L (98-107); Estimated GFR 72; Glucose 103 mg/dL (80-115); Phosphorus 2.8 mg/dL (2.3-4.7); Potassium 4.5 mmol/L (3.5-5.1); Sodium 134 mmol/L (136-145)
[2021-12-07 15:08] LABS: INR-International Normal Ratio 1.2; Prothrombin Time 15.4 sec (12.0-14.7)
[2021-12-07 15:09] LABS: PTT 42.6 sec (22.9-36.1)
[2021-12-07] MEDS: Labetalol HCl 100 MG/20 ML VIAL SLOW IVP PRN (15:28)
[2021-12-07] MEDS: Bisacodyl 10 MG SUPP PR SCH (16:24)
[2021-12-07] MEDS: Ondansetron PF 4 MG/2 ML Vial IVP PRN (21:48)
[2021-12-07] MEDS: hydrOXYzine 25 MG TAB PO PRN (21:49)
[2021-12-07] MEDS: Amino Acids 4.25 %/Dextrose 5% 1,000 ML IV SCH (23:32)
[2021-12-08] MEDS: Acetaminophen 650 MG Suppository PR SCH ×7 (01:50→21:47)
[2021-12-08] MEDS: Labetalol HCl 100 MG/20 ML VIAL SLOW IVP PRN ×3 (01:51→11:12)
[2021-12-08] MEDS: FENTANYL 50 MCG/ML 1 ML VIAL SLOW IVP PRN ×3 (03:20→21:47)
[2021-12-08 05:48] LABS: Anion Gap 8 mmol/L (10-20); BUN (Urea Nitrogen) 58 mg/dL (9.8-20.1); Carbon Dioxide 24 mmol/L (23-31); Chloride 106 mmol/L (98-107); Potassium 4.4 mmol/L (3.5-5.1); Sodium 134 mmol/L (136-145)
[2021-12-08 05:49] LABS: Albumin 2.7 g/dL (3.4-4.8); BUN/Creatinine Ratio 69.05; Calc. Creatinine Clearance 47 mL/min (70-130); Calcium 8.6 mg/dL (7.8-10.44); Estimated GFR 75; Glucose 95 mg/dL (80-115); Phosphorus 3.1 mg/dL (2.3-4.7)
[2021-12-08] MEDS: Dronabinol 2.5 MG CAP PO SCH ×3 (06:26→16:09)
[2021-12-08] MEDS: Nitroglycerin 2% Ointment 1 INCH/1 GM Packet TOP SCH ×3 (06:45→23:50)
[2021-12-08] MEDS ORDERED: CEFAZOLIN 1 GM VIAL SLOW IVP SCH (08:00)
[2021-12-08] MEDS: Carvedilol 25 MG TAB PO SCH ×2 (08:22→17:07)
[2021-12-08] MEDS ORDERED: Furosemide 40 MG/4 ML VIAL SLOW IVP SCH (09:15)
[2021-12-08] MEDS: Pantoprazole 40 MG VIAL IVP SCH (09:23)
[2021-12-08] MEDS: Amlodipine 10 MG TAB PO SCH (09:23)
[2021-12-08] MEDS: predniSONE 5 MG TAB PO SCH (09:24)
[2021-12-08] MEDS: Saccharomyces boulardii 250 MG CAP PO SCH (09:24)
[2021-12-08] MEDS: Tacrolimus 1 MG CAP PO SCH ×2 (09:24→20:13)
[2021-12-08] MEDS: Sertraline 25 MG TAB PO SCH (09:24)
[2021-12-08] MEDS ORDERED: CEFAZOLIN 2 GM VIAL ONE (09:35)
[2021-12-08] MEDS ORDERED: Sodium Chloride 0.9% 100 ML ONE (09:35)
[2021-12-08] MEDS ORDERED: PROPOFOL 200 MG/20 ML VIAL ONE (09:44)
[2021-12-08] MEDS ORDERED: Acetaminophen 650 MG Suppository PR SCH (11:30)
[2021-12-08] MEDS: Bisacodyl 10 MG SUPP PR SCH (18:40)
[2021-12-08] MEDS: hydrALAZINE 20 MG/ML VIAL SLOW IVP PRN (20:11)
[2021-12-09] MEDS: FENTANYL 50 MCG/ML 1 ML VIAL SLOW IVP PRN (03:42)
[2021-12-09] MEDS: Ondansetron PF 4 MG/2 ML Vial IVP PRN ×2 (03:43→10:32)
[2021-12-09] MEDS: Acetaminophen 650 MG Suppository PR SCH ×4 (03:43→14:58)
[2021-12-09] MEDS: hydrALAZINE 20 MG/ML VIAL SLOW IVP PRN (03:54)
[2021-12-09] MEDS: Dronabinol 2.5 MG CAP PO SCH ×3 (06:56→15:59)
[2021-12-09] MEDS ORDERED: Furosemide 20 MG/2 ML VIAL SLOW IVP SCH (07:00)
[2021-12-09 07:27] LABS: Anion Gap 12 mmol/L (10-20); BUN (Urea Nitrogen) 55 mg/dL (9.8-20.1); Calc. Creatinine Clearance 43 mL/min (70-130); Calcium 8.9 mg/dL (7.8-10.44); Carbon Dioxide 22 mmol/L (23-31); Chloride 109 mmol/L (98-107); Estimated GFR 68; Glucose 92 mg/dL (80-115); Potassium 4.7 mmol/L (3.5-5.1); Sodium 138 mmol/L (136-145)
[2021-12-09] MEDS: Nitroglycerin 2% Ointment 1 INCH/1 GM Packet TOP SCH ×2 (08:11→16:00)
[2021-12-09] MEDS: Scopolamine 1.5 mg/72 hour Patch TD SCH (08:11)
[2021-12-09] MEDS: Carvedilol 25 MG TAB PO SCH ×2 (10:38→18:02)
[2021-12-09] MEDS: Amlodipine 10 MG TAB PO SCH (10:46)
[2021-12-09] MEDS: Saccharomyces boulardii 250 MG CAP PO SCH (10:48)
[2021-12-09] MEDS: Sertraline 25 MG TAB PO SCH (10:49)
[2021-12-09] MEDS: predniSONE 5 MG TAB PO SCH (10:49)
[2021-12-09] MEDS: Pantoprazole 40 MG VIAL IVP SCH (10:51)
[2021-12-09 10:53] LABS: #Lymphocytes 1.1 thou/uL (1.20-3.40); #Monocytes 0.2 thou/uL (0.11-0.59); %Eosinophils 0.5 % (0.0-10.0); %Lymphocytes 20.6 % (21.0-51.0); %Monocytes 4.1 % (0.0-10.0); %Neutrophils 74.9 % (42.0-75.0); Hemoglobin 8.2 g/dL (12.0-16.0); Mean Corpuscular Hemoglobin 31.9 pg (27.0-31.0); Mean Corpuscular Volume 96.6 fl (78.0-98.0); Mean Platelet Volume 8.9 fL (7.4-10.4); Platelet Count 246 thou/uL (130-400); RBC Distribution Width 18.2 % (11.5-14.5); Red Blood Cell (RBC) Count 2.55 mill/uL (4.20-5.40); White Blood Cell (WBC) Count 5.3 thou/uL (4.8-10.8)
[2021-12-09] MEDS: Tacrolimus 1 MG CAP PO SCH ×2 (10:56→21:01)
[2021-12-09] MEDS: Bisacodyl 10 MG SUPP PR SCH (15:59)
[2021-12-09] MEDS ORDERED: Lactated Ringer's 1,000 ML IV SCH (16:15)
[2021-12-09] MEDS ORDERED: Meropenem 1 GM in Sodium Chloride 0.9% 100 ML IVPB SCH ×3 (16:30→22:00)
[2021-12-09] MEDS ORDERED: Vancomycin 1 GM in Premix Bag 1 BAG IVPB SCH (17:00)
[2021-12-09] MEDS ORDERED: Acetaminophen 325 MG TAB PER TUBE SCH (17:00)
[2021-12-09] MEDS: Meropenem 1 GM in Sodium Chloride 0.9% 100 ML IVPB SCH (18:01)
[2021-12-09] MEDS: Acetaminophen 325 MG TAB PER TUBE SCH ×2 (18:16→23:22)
[2021-12-09] MEDS: Epoetin (ESRD) 10,000 UNITS/ML VIAL SC SCH (18:46)
[2021-12-09] MEDS ORDERED: Acetaminophen 650 MG Suppository PR SCH (20:00)
[2021-12-10] MEDS ORDERED: Meropenem 1 GM in Sodium Chloride 0.9% 100 ML IVPB SCH (02:00)
[2021-12-10] MEDS: Meropenem 1 GM in Sodium Chloride 0.9% 100 ML IVPB SCH ×2 (02:29→15:19)
[2021-12-10] MEDS: Acetaminophen 325 MG TAB PER TUBE SCH ×6 (02:42→22:57)
[2021-12-10 04:08] LABS: #Lymphocytes 0.8 thou/uL (1.20-3.40); #Monocytes 0.2 thou/uL (0.11-0.59); #Neutrophils 1.8 thou/uL (1.40-6.50); %Eosinophils 0.1 % (0.0-10.0); %Monocytes 5.6 % (0.0-10.0); %Neutrophils 65.3 % (42.0-75.0); Hemoglobin 6.5 g/dL (12.0-16.0); Mean Corpuscular Hemoglobin 32.7 pg (27.0-31.0); Mean Platelet Volume 8.7 fL (7.4-10.4); Platelet Count 198 thou/uL (130-400); Red Blood Cell (RBC) Count 1.98 mill/uL (4.20-5.40); White Blood Cell (WBC) Count 2.8 thou/uL (4.8-10.8)
[2021-12-10 04:42] LABS: ALT (SGPT) Less than 7 U/L (8-55); AST (SGOT) 12 U/L (5-34); Albumin 2.5 g/dL (3.4-4.8); Alkaline Phosphatase 81 U/L (40-110); Anion Gap 11 mmol/L (10-20); BUN (Urea Nitrogen) 64 mg/dL (9.8-20.1); Bilirubin, Total 0.5 mg/dL (0.2-1.2); Calc. Creatinine Clearance 27 mL/min (70-130); Calcium 8.3 mg/dL (7.8-10.44); Carbon Dioxide 22 mmol/L (23-31); Chloride 109 mmol/L (98-107); Estimated GFR 39; Globulin 1.9 g/dL (2.4-3.5); Glucose 131 mg/dL (80-115); Potassium 4.3 mmol/L (3.5-5.1); Protein, Total 4.4 g/dL (5.8-8.1); Sodium 138 mmol/L (136-145)
[2021-12-10] MEDS: FENTANYL 50 MCG/ML 1 ML VIAL SLOW IVP PRN (04:43)
[2021-12-10] MEDS ORDERED: Sodium Bicarbonate 50 MEQ in Sodium Chloride 0.45% 1,000 ML IV SCH (10:00)
[2021-12-10] MEDS: Carvedilol 25 MG TAB PO SCH ×2 (10:45→18:12)
[2021-12-10] MEDS: predniSONE 5 MG TAB PO SCH (10:45)
[2021-12-10] MEDS: Amlodipine 10 MG TAB PO SCH (10:45)
[2021-12-10] MEDS: Tacrolimus 1 MG CAP PO SCH ×2 (10:45→20:49)
[2021-12-10] MEDS: Sertraline 25 MG TAB PO SCH (10:46)
[2021-12-10] MEDS: Saccharomyces boulardii 250 MG CAP PO SCH (10:46)
[2021-12-10] MEDS: Pantoprazole 40 MG VIAL IVP SCH (10:47)
[2021-12-10] MEDS: Albumin 25% 25 GM/100 ML BOT IVPB SCH ×2 (10:50→12:05)
[2021-12-10 11:04] LABS: Hemoglobin 8.2 g/dL (12.0-16.0); Mean Corpuscular HGB CONC 31.7 g/dL (32.0-36.0); Mean Corpuscular Hemoglobin 32.2 pg (27.0-31.0); Mean Platelet Volume 8.8 fL (7.4-10.4); Platelet Count 232 thou/uL (130-400); RBC Distribution Width 18.5 % (11.5-14.5); Red Blood Cell (RBC) Count 2.56 mill/uL (4.20-5.40); White Blood Cell (WBC) Count 2.5 thou/uL (4.8-10.8)
[2021-12-10] MEDS ORDERED: Vancomycin HCl 750 MG in Sodium Chloride 0.9% 250 ML 250 ML IVPB SCH (17:00)
[2021-12-11] MEDS: Meropenem 1 GM in Sodium Chloride 0.9% 100 ML IVPB SCH ×2 (02:01→15:47)
[2021-12-11] MEDS: Acetaminophen 325 MG TAB PER TUBE SCH ×6 (02:02→22:33)
[2021-12-11 04:40] LABS: ALT (SGPT) Less than 7 U/L (8-55); AST (SGOT) 12 U/L (5-34); Albumin 2.7 g/dL (3.4-4.8); Alkaline Phosphatase 61 U/L (40-110); Anion Gap 14 mmol/L (10-20); BUN (Urea Nitrogen) 73 mg/dL (9.8-20.1); Calc. Creatinine Clearance 24 mL/min (70-130); Calcium 8.1 mg/dL (7.8-10.44); Carbon Dioxide 20 mmol/L (23-31); Chloride 108 mmol/L (98-107); Estimated GFR 33; Globulin 1.8 g/dL (2.4-3.5); Glucose 114 mg/dL (80-115); Potassium 4.2 mmol/L (3.5-5.1); Protein, Total 4.5 g/dL (5.8-8.1); Sodium 138 mmol/L (136-145)
[2021-12-11 04:41] LABS: Band 18 % (5-11); Hypochromia SLIGHT = 6-15 cells (100X) (0-5/hpf); Lymphocytes 34 % (21-51); MDiff Complete? YES; Mean Corpuscular HGB CONC 30.3 g/dL (32.0-36.0); Mean Corpuscular Hemoglobin 31.6 pg (27.0-31.0); Mean Platelet Volume 9.4 fL (7.4-10.4); Monocytes 3 % (0-10); Neutrophil 45 % (42-75); Platelet Count 158 thou/uL (130-400); RBC Distribution Width 17.8 % (11.5-14.5); White Blood Cell (WBC) Count 1.3 thou/uL (4.8-10.8)
[2021-12-11 07:42] LABS: Hemoglobin 5.7 g/dL (12.0-16.0); Platelet Count 166 thou/uL (130-400)
[2021-12-11] MEDS: Amlodipine 10 MG TAB PO SCH (08:15)
[2021-12-11] MEDS: Carvedilol 25 MG TAB PO SCH ×2 (08:15→17:32)
[2021-12-11] MEDS ORDERED: Iopamidol-370 76% 500 ML 1 ML ONE (08:40)
[2021-12-11] MEDS: Saccharomyces boulardii 250 MG CAP PO SCH (09:00)
[2021-12-11] MEDS: Tacrolimus 1 MG CAP PO SCH ×2 (09:00→20:23)
[2021-12-11] MEDS: predniSONE 5 MG TAB PO SCH (09:00)
[2021-12-11] MEDS: Pantoprazole 40 MG VIAL IVP SCH (09:04)
[2021-12-11] MEDS: Sertraline 25 MG TAB PO SCH (09:04)
[2021-12-11] MEDS: Albumin 25% 25 GM/100 ML BOT IVPB SCH ×2 (09:30→15:46)
[2021-12-11 11:24] LABS: Hemoglobin 5.1 g/dL (12.0-16.0)
[2021-12-11] MEDS ORDERED: Sodium Bicarbonate 150 MEQ in Dextrose 5% in Water 1,000 ML IV SCH (13:00)
[2021-12-11 13:16] LABS: Creatinine, Urine 105.26 mg/dL (47-110)
[2021-12-11 16:24] LABS: Vancomycin, Trough 17.5 ug/mL
[2021-12-11] MEDS ORDERED: Vancomycin Dose by Levels Sliding Scale (Wt <71) FS SCH (16:45)
[2021-12-11] MEDS ORDERED: Vancomycin HCl 250 MG in Sodium Chloride 0.9% 100 ML IV SCH (17:00)
[2021-12-11] MEDS: Ondansetron PF 4 MG/2 ML Vial IVP PRN (22:52)
[2021-12-12] MEDS: Meropenem 1 GM in Sodium Chloride 0.9% 100 ML IVPB SCH ×2 (01:44→13:56)
[2021-12-12] MEDS: Acetaminophen 325 MG TAB PER TUBE SCH ×6 (03:47→23:27)
[2021-12-12 05:02] LABS: Hemoglobin 8.9 g/dL (12.0-16.0); Mean Corpuscular HGB CONC 32.8 g/dL (32.0-36.0); Mean Corpuscular Hemoglobin 31.1 pg (27.0-31.0); Mean Corpuscular Volume 94.7 fl (78.0-98.0); Mean Platelet Volume 9.7 fL (7.4-10.4); Platelet Count 176 thou/uL (130-400); RBC Distribution Width 17.8 % (11.5-14.5); Red Blood Cell (RBC) Count 2.87 mill/uL (4.20-5.40); White Blood Cell (WBC) Count 3.9 thou/uL (4.8-10.8)
[2021-12-12 05:17] LABS: ALT (SGPT) 7 U/L (8-55); AST (SGOT) 25 U/L (5-34); Albumin 2.9 g/dL (3.4-4.8); Alkaline Phosphatase 82 U/L (40-110); Anion Gap 16 mmol/L (10-20); BUN (Urea Nitrogen) 79 mg/dL (9.8-20.1); Bilirubin, Total 1.4 mg/dL (0.2-1.2); Calc. Creatinine Clearance 21 mL/min (70-130); Calcium 7.8 mg/dL (7.8-10.44); Carbon Dioxide 21 mmol/L (23-31); Chloride 104 mmol/L (98-107); Estimated GFR 26; Globulin 1.7 g/dL (2.4-3.5); Glucose 136 mg/dL (80-115); Potassium 3.7 mmol/L (3.5-5.1); Protein, Total 4.6 g/dL (5.8-8.1); Sodium 137 mmol/L (136-145)
[2021-12-12 05:28] LABS: Band 32 % (5-11); Lymphocytes 21 % (21-51); MDiff Complete? YES; Monocytes 2 % (0-10); Neutrophil 45 % (42-75)
[2021-12-12] MEDS: Scopolamine 1.5 mg/72 hour Patch TD SCH (06:05)
[2021-12-12] MEDS: Tacrolimus 1 MG CAP PO SCH ×2 (09:01→20:29)
[2021-12-12] MEDS: Saccharomyces boulardii 250 MG CAP PO SCH (09:01)
[2021-12-12] MEDS: Sertraline 25 MG TAB PO SCH (09:01)
[2021-12-12] MEDS: Pantoprazole 40 MG VIAL IVP SCH (09:01)
[2021-12-12] MEDS: Carvedilol 25 MG TAB PO SCH ×2 (09:01→17:57)
[2021-12-12] MEDS: predniSONE 5 MG TAB PO SCH (09:01)
[2021-12-12] MEDS: Amlodipine 10 MG TAB PO SCH (09:01)
[2021-12-12] MEDS: Albumin 25% 25 GM/100 ML BOT IVPB SCH ×2 (13:56→22:35)
[2021-12-12 16:37] LABS: Vancomycin, Random 20.3 ug/mL (See Comment)
[2021-12-13] MEDS: Meropenem 1 GM in Sodium Chloride 0.9% 100 ML IVPB SCH ×2 (00:59→14:35)
[2021-12-13] MEDS: Acetaminophen 325 MG TAB PER TUBE SCH ×6 (03:46→22:46)
[2021-12-13 04:36] LABS: Band 15 % (5-11); Eosinophils 1 % (0-10); Lymphocytes 22 % (21-51); MDiff Complete? YES; Mean Corpuscular HGB CONC 33.5 g/dL (32.0-36.0); Mean Corpuscular Hemoglobin 31.6 pg (27.0-31.0); Mean Corpuscular Volume 94.4 fl (78.0-98.0); Mean Platelet Volume 9.6 fL (7.4-10.4); Monocytes 1 % (0-10); Neutrophil 61 % (42-75); Platelet Count 174 thou/uL (130-400); RBC Distribution Width 17.8 % (11.5-14.5); Red Blood Cell (RBC) Count 2.53 mill/uL (4.20-5.40); White Blood Cell (WBC) Count 3.5 thou/uL (4.8-10.8)
[2021-12-13 05:34] LABS: ALT (SGPT) 7 U/L (8-55); AST (SGOT) 66 U/L (5-34); Albumin 3.2 g/dL (3.4-4.8); Alkaline Phosphatase 101 U/L (40-110); Anion Gap 13 mmol/L (10-20); BUN (Urea Nitrogen) 84 mg/dL (9.8-20.1); Bilirubin, Total 1.5 mg/dL (0.2-1.2); Calc. Creatinine Clearance 18 mL/min (70-130); Calcium 7.7 mg/dL (7.8-10.44); Carbon Dioxide 24 mmol/L (23-31); Chloride 100 mmol/L (98-107); Estimated GFR 22; Globulin 1.5 g/dL (2.4-3.5); Glucose 142 mg/dL (80-115); Potassium 3.6 mmol/L (3.5-5.1); Protein, Total 4.7 g/dL (5.8-8.1); Sodium 133 mmol/L (136-145)
[2021-12-13] MEDS: Albumin 25% 25 GM/100 ML BOT IVPB SCH (05:50)
[2021-12-13] MEDS: Pantoprazole 40 MG VIAL IVP SCH (09:15)
[2021-12-13] MEDS: Saccharomyces boulardii 250 MG CAP PO SCH (09:16)
[2021-12-13] MEDS: Tacrolimus 1 MG CAP PO SCH ×2 (09:16→20:57)
[2021-12-13] MEDS: Carvedilol 25 MG TAB PO SCH (09:16)
[2021-12-13] MEDS: Amlodipine 10 MG TAB PO SCH (09:17)
[2021-12-13] MEDS: Sertraline 25 MG TAB PO SCH (09:17)
[2021-12-13] MEDS: predniSONE 5 MG TAB PO SCH (09:17)
[2021-12-13] MEDS: Ondansetron PF 4 MG/2 ML Vial IVP PRN ×2 (09:38→16:40)
[2021-12-13 12:10] LABS: SARS-CoV-2 NAA Rapid Test Not Detected (NotDetected)
[2021-12-13 18:29] LABS: Vancomycin, Random 18.1 ug/mL (See Comment)
[2021-12-13] MEDS: Ondansetron HCl/PF 8 MG in Sodium Chloride 0.9% 50 ML IVPB SCH (20:04)
[2021-12-13] MEDS: hydrOXYzine 25 MG TAB PO PRN (20:57)
[2021-12-13] MEDS ORDERED: Vancomycin HCl 250 MG in Sodium Chloride 0.9% 100 ML IV SCH (22:00)
[2021-12-14] MEDS: diphenhydrAMINE 50 MG/ML VIAL IVP PRN ×2 (00:53→08:27)
[2021-12-14] MEDS: Meropenem 1 GM in Sodium Chloride 0.9% 100 ML IVPB SCH ×2 (01:00→16:02)
[2021-12-14] MEDS: Acetaminophen 325 MG TAB PER TUBE SCH ×5 (03:43→18:16)
[2021-12-14 06:08] LABS: ALT (SGPT) 9 U/L (8-55); AST (SGOT) 54 U/L (5-34); Albumin 3.1 g/dL (3.4-4.8); Alkaline Phosphatase 159 U/L (40-110); Anion Gap 13 mmol/L (10-20); BUN (Urea Nitrogen) 91 mg/dL (9.8-20.1); Bilirubin, Total 1.3 mg/dL (0.2-1.2); Calc. Creatinine Clearance 15 mL/min (70-130); Calcium 7.6 mg/dL (7.8-10.44); Carbon Dioxide 21 mmol/L (23-31); Chloride 102 mmol/L (98-107); Estimated GFR 17; Globulin 1.6 g/dL (2.4-3.5); Glucose 204 mg/dL (80-115); Potassium 3.3 mmol/L (3.5-5.1); Protein, Total 4.7 g/dL (5.8-8.1); Sodium 133 mmol/L (136-145)
[2021-12-14 06:33] LABS: Band 15 % (5-11); Hemoglobin 8.6 g/dL (12.0-16.0); Lymphocytes 22 % (21-51); MDiff Complete? YES; Mean Corpuscular HGB CONC 32.2 g/dL (32.0-36.0); Mean Corpuscular Hemoglobin 30.7 pg (27.0-31.0); Mean Corpuscular Volume 95.4 fl (78.0-98.0); Monocytes 7 % (0-10); Neutrophil 56 % (42-75); Platelet Count 224 10x3/uL (130-400); White Blood Cell (WBC) Count 4.1 10x3/uL (4.8-10.8)
[2021-12-14] MEDS: Amlodipine 5 MG TAB PO SCH (08:30)
[2021-12-14] MEDS: predniSONE 5 MG TAB PO SCH (08:30)
[2021-12-14] MEDS: Saccharomyces boulardii 250 MG CAP PO SCH (08:31)
[2021-12-14] MEDS: Pantoprazole 40 MG VIAL IVP SCH (08:31)
[2021-12-14] MEDS: Tacrolimus 1 MG CAP PO SCH ×2 (08:31→20:28)
[2021-12-14] MEDS: Sertraline 25 MG TAB PO SCH (08:31)
[2021-12-14] MEDS: Ondansetron HCl/PF 8 MG in Sodium Chloride 0.9% 50 ML IVPB SCH ×2 (08:32→20:28)
[2021-12-14 10:46] LABS: Magnesium 1.8 mg/dL (1.6-2.6); Phosphorus 2.3 mg/dL (2.3-4.7)
[2021-12-14] MEDS: Sodium Bicarbonate Tab 325 MG TAB PER TUBE SCH ×2 (16:04→20:28)
[2021-12-15] MEDS: Acetaminophen 325 MG TAB PER TUBE SCH ×7 (00:32→23:37)
[2021-12-15] MEDS: Meropenem 1 GM in Sodium Chloride 0.9% 100 ML IVPB SCH (02:17)
[2021-12-15 05:20] LABS: ALT (SGPT) Less than 7 U/L (8-55); AST (SGOT) 27 U/L (5-34); Albumin 2.8 g/dL (3.4-4.8); Alkaline Phosphatase 143 U/L (40-110); Anion Gap 18 mmol/L (10-20); BUN (Urea Nitrogen) 101 mg/dL (9.8-20.1); Bilirubin, Total 1.1 mg/dL (0.2-1.2); Calc. Creatinine Clearance 14 mL/min (70-130); Calcium 7.9 mg/dL (7.8-10.44); Carbon Dioxide 18 mmol/L (23-31); Chloride 101 mmol/L (98-107); Estimated GFR 15; Globulin 1.9 g/dL (2.4-3.5); Glucose 166 mg/dL (80-115); Potassium 3.3 mmol/L (3.5-5.1); Protein, Total 4.7 g/dL (5.8-8.1); Sodium 134 mmol/L (136-145)
[2021-12-15 05:37] LABS: Band 19 % (5-11); Burr Cells SLIGHT = 2-5 cells (100X) (0-1/hpf); Differential Comment Plasma-like Cell(s); Hemoglobin 8.8 g/dL (12.0-16.0); Lymphocytes 15 % (21-51); MDiff Complete? YES; Mean Corpuscular HGB CONC 32.1 g/dL (32.0-36.0); Mean Corpuscular Hemoglobin 30.7 pg (27.0-31.0); Mean Corpuscular Volume 95.5 fl (78.0-98.0); Metamyelocyte 1 % (0-0); Monocytes 3 % (0-10); Myelocyte 1 % (0-0); Neutrophil 59 % (42-75); Platelet Count 250 10x3/uL (130-400); RBC Distribution Width 17.8 % (11.5-14.5); Reactive Lymphocytes 1 % (0-10); Red Blood Cell (RBC) Count 2.86 mill/uL (4.20-5.40); White Blood Cell (WBC) Count 5.8 10x3/uL (4.8-10.8)
[2021-12-15] MEDS: Albumin 25% 25 GM/100 ML BOT IVPB SCH ×3 (08:27→18:05)
[2021-12-15] MEDS: Pantoprazole 40 MG VIAL IVP SCH (08:27)
[2021-12-15] MEDS: Scopolamine 1.5 mg/72 hour Patch TD SCH (08:27)
[2021-12-15] MEDS: Tacrolimus 1 MG CAP PO SCH ×2 (08:28→20:24)
[2021-12-15] MEDS: Sertraline 25 MG TAB PO SCH (08:28)
[2021-12-15] MEDS: Amlodipine 5 MG TAB PO SCH (08:28)
[2021-12-15] MEDS: Saccharomyces boulardii 250 MG CAP PO SCH (08:28)
[2021-12-15] MEDS: Sodium Bicarbonate Tab 325 MG TAB PER TUBE SCH ×3 (08:28→20:24)
[2021-12-15] MEDS: predniSONE 5 MG TAB PO SCH (08:28)
[2021-12-15] MEDS: Potassium Bicarbonate/Cit Ac 20 MEQ TAB PER TUBE SCH ×2 (09:01→20:24)
[2021-12-15] MEDS: Ondansetron HCl/PF 8 MG in Sodium Chloride 0.9% 50 ML IVPB SCH ×2 (11:10→20:23)
[2021-12-15 12:14] LABS: Campy jejuni + coli by PCR Negative (Negative); STEC Shiga Toxin 1+2 Negative (Negative); Salmonella spp. by PCR Negative (Negative); Shigella spp + EIEC by PCR Negative (Negative)
[2021-12-15] MEDS: Meropenem 500 MG in Sodium Chloride 0.9% 100 ML IVPB SCH (14:31)
[2021-12-15] MEDS: Carvedilol 25 MG TAB PO SCH (18:05)
[2021-12-15] MEDS: ERYTHROMYCIN IVPB SCH (19:47)
[2021-12-15] MEDS: SODIUM CHLORIDE 0.9% IVPB SCH (19:47)
[2021-12-15] MEDS: diphenhydrAMINE 50 MG/ML VIAL IVP PRN (20:52)
[2021-12-16] MEDS: Ondansetron PF 4 MG/2 ML Vial IVP PRN (00:13)
[2021-12-16] MEDS: Meropenem 500 MG in Sodium Chloride 0.9% 100 ML IVPB SCH ×2 (01:55→16:25)
[2021-12-16] MEDS: SODIUM CHLORIDE 0.9% IVPB SCH ×4 (02:24→16:25)
[2021-12-16] MEDS: ERYTHROMYCIN IVPB SCH ×4 (02:24→16:25)
[2021-12-16] MEDS: Acetaminophen 325 MG TAB PER TUBE SCH ×6 (03:23→23:49)
[2021-12-16 04:38] LABS: ALT (SGPT) Less than 7 U/L (8-55); AST (SGOT) 23 U/L (5-34); Albumin 3.4 g/dL (3.4-4.8); Alkaline Phosphatase 131 U/L (40-110); Anion Gap 19 mmol/L (10-20); BUN (Urea Nitrogen) 102 mg/dL (9.8-20.1); Bilirubin, Total 1.3 mg/dL (0.2-1.2); Calc. Creatinine Clearance 13 mL/min (70-130); Calcium 8.5 mg/dL (7.8-10.44); Carbon Dioxide 18 mmol/L (23-31); Chloride 103 mmol/L (98-107); Estimated GFR 15; Globulin 1.7 g/dL (2.4-3.5); Glucose 150 mg/dL (80-115); Protein, Total 5.1 g/dL (5.8-8.1); Sodium 136 mmol/L (136-145)
[2021-12-16 04:56] LABS: Band 22 % (5-11); Hemoglobin 8.4 g/dL (12.0-16.0); Hypochromia SLIGHT = 6-15 cells (100X) (0-5/hpf); Lymphocytes 18 % (21-51); MDiff Complete? YES; Mean Corpuscular HGB CONC 32.2 g/dL (32.0-36.0); Mean Corpuscular Hemoglobin 30.4 pg (27.0-31.0); Mean Corpuscular Volume 94.2 fl (78.0-98.0); Mean Platelet Volume 9.9 fL (7.4-10.4); Monocytes 2 % (0-10); Neutrophil 56 % (42-75); Platelet Count 247 10x3/uL (130-400); Platelet Morphology Comment Appears Adequate; Reactive Lymphocytes 2 % (0-10); Red Blood Cell (RBC) Count 2.77 mill/uL (4.20-5.40); White Blood Cell (WBC) Count 6.9 10x3/uL (4.8-10.8)
[2021-12-16] MEDS: Sodium Bicarbonate Tab 325 MG TAB PER TUBE SCH ×4 (07:25→20:11)
[2021-12-16] MEDS: Sertraline 25 MG TAB PO SCH ×2 (07:25→07:26)
[2021-12-16] MEDS: Tacrolimus 1 MG CAP PO SCH ×2 (07:25→20:11)
[2021-12-16] MEDS: Potassium Bicarbonate/Cit Ac 20 MEQ TAB PER TUBE SCH (07:25)
[2021-12-16] MEDS: Amlodipine 5 MG TAB PO SCH (07:26)
[2021-12-16] MEDS: Saccharomyces boulardii 250 MG CAP PO SCH (07:26)
[2021-12-16] MEDS: Carvedilol 25 MG TAB PO SCH ×2 (07:26→16:23)
[2021-12-16] MEDS: predniSONE 5 MG TAB PO SCH (07:26)
[2021-12-16] MEDS: Pantoprazole 40 MG VIAL IVP SCH (07:26)
[2021-12-16] MEDS: Ondansetron HCl/PF 8 MG in Sodium Chloride 0.9% 50 ML IVPB SCH ×2 (09:57→20:27)
[2021-12-16] MEDS ORDERED: Furosemide 40 MG/4 ML VIAL SLOW IVP SCH (11:30)
[2021-12-16] MEDS: Epoetin (ESRD) 10,000 UNITS/ML VIAL SC SCH (16:25)
[2021-12-16] MEDS ORDERED: Furosemide 100 MG/10 ML VIAL SLOW IVP SCH (16:45)
[2021-12-16] MEDS ORDERED: traMADol HCl 50 MG TAB PO PRN (16:54)
[2021-12-16] MEDS: traMADol HCl 50 MG TAB PO PRN ×2 (17:13→17:44)
[2021-12-17] MEDS: Meropenem 500 MG in Sodium Chloride 0.9% 100 ML IVPB SCH ×2 (01:57→14:36)
[2021-12-17] MEDS: ERYTHROMYCIN IVPB SCH ×3 (01:57→18:24)
[2021-12-17] MEDS: SODIUM CHLORIDE 0.9% IVPB SCH ×3 (01:57→18:24)
[2021-12-17] MEDS: Acetaminophen 325 MG TAB PER TUBE SCH ×6 (03:41→22:10)
[2021-12-17 05:23] LABS: ALT (SGPT) Less than 7 U/L (8-55); AST (SGOT) 22 U/L (5-34); Alkaline Phosphatase 143 U/L (40-110); Anion Gap 18 mmol/L (10-20); BUN (Urea Nitrogen) 109 mg/dL (9.8-20.1); Calc. Creatinine Clearance 12 mL/min (70-130); Calcium 8.4 mg/dL (7.8-10.44); Carbon Dioxide 20 mmol/L (23-31); Chloride 104 mmol/L (98-107); Estimated GFR 13; Globulin 2.1 g/dL (2.4-3.5); Glucose 195 mg/dL (80-115); Potassium 4.9 mmol/L (3.5-5.1); Protein, Total 5.1 g/dL (5.8-8.1); Sodium 137 mmol/L (136-145)
[2021-12-17 05:46] LABS: Anisocytosis SLIGHT = 6-15 cells (100X) (0-5/hpf); Band 16 % (5-11); Burr Cells SLIGHT = 2-5 cells (100X) (0-1/hpf); Eosinophils 1 % (0-10); Hemoglobin 8.1 g/dL (12.0-16.0); Hypochromia SLIGHT = 6-15 cells (100X) (0-5/hpf); Lymphocytes 16 % (21-51); MDiff Complete? YES; Mean Corpuscular HGB CONC 31.4 g/dL (32.0-36.0); Mean Corpuscular Hemoglobin 29.9 pg (27.0-31.0); Mean Corpuscular Volume 95.1 fl (78.0-98.0); Metamyelocyte 1 % (0-0); Monocytes 2 % (0-10); Neutrophil 63 % (42-75); Nucleated RBC 1 % (0); Platelet Count 283 10x3/uL (130-400); Platelet Morphology Comment Appears Adequate; Polychromasia SLIGHT = 2-3 cells (100X) (0-2/hpf); RBC Distribution Width 18.4 % (11.5-14.5); Red Blood Cell (RBC) Count 2.71 mill/uL (4.20-5.40); Target Cells SLIGHT = 2-5 cells (100X) (0-1/hpf); White Blood Cell (WBC) Count 7.8 10x3/uL (4.8-10.8)
[2021-12-17] MEDS: traMADol HCl 50 MG TAB PO PRN (06:01)
[2021-12-17] MEDS: predniSONE 5 MG TAB PO SCH (07:42)
[2021-12-17] MEDS: Tacrolimus 1 MG CAP PO SCH ×2 (07:42→22:05)
[2021-12-17] MEDS: Carvedilol 25 MG TAB PO SCH ×2 (07:42→16:48)
[2021-12-17] MEDS: Amlodipine 5 MG TAB PO SCH (07:42)
[2021-12-17] MEDS: Pantoprazole 40 MG VIAL IVP SCH (07:43)
[2021-12-17] MEDS: Saccharomyces boulardii 250 MG CAP PO SCH (07:43)
[2021-12-17] MEDS: Sodium Bicarbonate Tab 325 MG TAB PER TUBE SCH ×3 (07:45→22:05)
[2021-12-17] MEDS: Ondansetron HCl/PF 8 MG in Sodium Chloride 0.9% 50 ML IVPB SCH ×2 (08:24→22:07)
[2021-12-17] MEDS: HumaLOG 300 UNITS/3 ML VIAL SC PRN ×2 (11:52→18:25)
[2021-12-17] MEDS: oxyCODONE 5 MG TAB PO PRN ×2 (12:48→22:06)
[2021-12-17 15:47] LABS: HBSAB Concentration Less than 8.00 mIU/mL; HBSAg Index 0.24 S/CO (0-0.99); Hep B Core Total Ab Non-Reactive (NonReactive); Hep B Core Total Index 0.12 S/CO (0-0.79); Hep B Surf AB Non-Reactive (NonReactive); Hep B Surf Ag Non-Reactive S/CO (NonReactive); Hep C IgG Ab Non-Reactive (NonReactive); Hep C Index 0.06 S/CO (0-0.79)
[2021-12-18] MEDS: Meropenem 500 MG in Sodium Chloride 0.9% 100 ML IVPB SCH ×2 (02:48→13:25)
[2021-12-18] MEDS: Acetaminophen 325 MG TAB PER TUBE SCH ×6 (02:48→23:11)
[2021-12-18] MEDS: SODIUM CHLORIDE 0.9% IVPB SCH ×3 (02:49→17:05)
[2021-12-18] MEDS: ERYTHROMYCIN IVPB SCH ×3 (02:49→17:05)
[2021-12-18] MEDS: oxyCODONE 5 MG TAB PO PRN ×2 (04:11→23:12)
[2021-12-18 05:19] LABS: ALT (SGPT) Less than 7 U/L (8-55); AST (SGOT) 26 U/L (5-34); Albumin 2.9 g/dL (3.4-4.8); Alkaline Phosphatase 168 U/L (40-110); Anion Gap 16 mmol/L (10-20); BUN (Urea Nitrogen) 86 mg/dL (9.8-20.1); Bilirubin, Total 0.9 mg/dL (0.2-1.2); Calc. Creatinine Clearance 15 mL/min (70-130); Calcium 8.4 mg/dL (7.8-10.44); Carbon Dioxide 23 mmol/L (23-31); Chloride 102 mmol/L (98-107); Estimated GFR 16; Globulin 2.3 g/dL (2.4-3.5); Glucose 200 mg/dL (80-115); Potassium 4.7 mmol/L (3.5-5.1); Protein, Total 5.2 g/dL (5.8-8.1); Sodium 136 mmol/L (136-145)
[2021-12-18 05:31] LABS: Band 24 % (5-11); Hemoglobin 8.2 g/dL (12.0-16.0); Hypochromia SLIGHT = 6-15 cells (100X) (0-5/hpf); Lymphocytes 8 % (21-51); MDiff Complete? YES; Mean Corpuscular HGB CONC 31.8 g/dL (32.0-36.0); Mean Corpuscular Hemoglobin 30.7 pg (27.0-31.0); Mean Corpuscular Volume 96.4 fl (78.0-98.0); Mean Platelet Volume 10.2 fL (7.4-10.4); Neutrophil 68 % (42-75); Platelet Count 279 10x3/uL (130-400); Platelet Morphology Comment Appears Adequate; RBC Distribution Width 18.9 % (11.5-14.5); Red Blood Cell (RBC) Count 2.67 mill/uL (4.20-5.40); White Blood Cell (WBC) Count 7.9 10x3/uL (4.8-10.8)
[2021-12-18] MEDS: HumaLOG 300 UNITS/3 ML VIAL SC PRN ×2 (05:39→17:06)
[2021-12-18] MEDS: Scopolamine 1.5 mg/72 hour Patch TD SCH (08:37)
[2021-12-18] MEDS: Ondansetron HCl/PF 8 MG in Sodium Chloride 0.9% 50 ML IVPB SCH ×2 (08:37→21:09)
[2021-12-18] MEDS: Sodium Bicarbonate Tab 325 MG TAB PER TUBE SCH (08:38)
[2021-12-18] MEDS: Tacrolimus 1 MG CAP PO SCH ×2 (08:39→21:09)
[2021-12-18] MEDS: Amlodipine 5 MG TAB PO SCH (08:39)
[2021-12-18] MEDS: Carvedilol 25 MG TAB PO SCH ×2 (08:39→17:05)
[2021-12-18] MEDS: predniSONE 5 MG TAB PO SCH (08:39)
[2021-12-18] MEDS: Pantoprazole 40 MG VIAL IVP SCH (08:39)
[2021-12-18] MEDS: Saccharomyces boulardii 250 MG CAP PO SCH (08:39)
[2021-12-19] MEDS: Acetaminophen 325 MG TAB PER TUBE SCH ×5 (02:49→18:31)
[2021-12-19] MEDS: SODIUM CHLORIDE 0.9% IVPB SCH ×3 (02:50→18:32)
[2021-12-19] MEDS: ERYTHROMYCIN IVPB SCH ×3 (02:50→18:32)
[2021-12-19] MEDS: Meropenem 500 MG in Sodium Chloride 0.9% 100 ML IVPB SCH ×2 (02:50→18:32)
[2021-12-19 04:38] LABS: ALT (SGPT) Less than 7 U/L (8-55); AST (SGOT) 29 U/L (5-34); Albumin 2.6 g/dL (3.4-4.8); Alkaline Phosphatase 181 U/L (40-110); Anion Gap 16 mmol/L (10-20); BUN (Urea Nitrogen) 62 mg/dL (9.8-20.1); Bilirubin, Total 0.7 mg/dL (0.2-1.2); Calc. Creatinine Clearance 18 mL/min (70-130); Calcium 8.2 mg/dL (7.8-10.44); Carbon Dioxide 23 mmol/L (23-31); Chloride 101 mmol/L (98-107); Estimated GFR 20; Globulin 2.3 g/dL (2.4-3.5); Glucose 234 mg/dL (80-115); Potassium 4.6 mmol/L (3.5-5.1); Protein, Total 4.9 g/dL (5.8-8.1); Sodium 135 mmol/L (136-145)
[2021-12-19 05:20] LABS: Anisocytosis SLIGHT = 6-15 cells (100X) (0-5/hpf); Band 12 % (5-11); Eosinophils 3 % (0-10); Hypochromia SLIGHT = 6-15 cells (100X) (0-5/hpf); Lymphocytes 12 % (21-51); MDiff Complete? YES; Mean Corpuscular HGB CONC 31.7 g/dL (32.0-36.0); Mean Corpuscular Hemoglobin 30.9 pg (27.0-31.0); Mean Corpuscular Volume 97.5 fl (78.0-98.0); Mean Platelet Volume 10.3 fL (7.4-10.4); Metamyelocyte 1 % (0-0); Monocytes 2 % (0-10); Neutrophil 70 % (42-75); Platelet Count 258 10x3/uL (130-400); Platelet Morphology Comment Appears Adequate; Polychromasia SLIGHT = 2-3 cells (100X) (0-2/hpf); RBC Distribution Width 20.2 % (11.5-14.5); Red Blood Cell (RBC) Count 2.59 mill/uL (4.20-5.40); Target Cells SLIGHT = 2-5 cells (100X) (0-1/hpf); Tear Drops SLIGHT = 2-5 cells (100X) (0-1/hpf); White Blood Cell (WBC) Count 8.7 10x3/uL (4.8-10.8)
[2021-12-19] MEDS: HumaLOG 300 UNITS/3 ML VIAL SC PRN ×2 (06:04→21:48)
[2021-12-19] MEDS: Amlodipine 5 MG TAB PO SCH (08:05)
[2021-12-19] MEDS: Ondansetron HCl/PF 8 MG in Sodium Chloride 0.9% 50 ML IVPB SCH ×2 (08:05→21:47)
[2021-12-19] MEDS: Tacrolimus 1 MG CAP PO SCH ×2 (08:05→21:48)
[2021-12-19] MEDS: predniSONE 5 MG TAB PO SCH (08:05)
[2021-12-19] MEDS: Pantoprazole 40 MG VIAL IVP SCH (08:05)
[2021-12-19] MEDS: Saccharomyces boulardii 250 MG CAP PO SCH (08:05)
[2021-12-19] MEDS: oxyCODONE 5 MG TAB PO PRN ×3 (08:06→21:48)
[2021-12-19] MEDS: Carvedilol 25 MG TAB PO SCH ×3 (08:06→18:31)
[2021-12-20] MEDS: Acetaminophen 325 MG TAB PER TUBE SCH ×6 (00:10→20:34)
[2021-12-20] MEDS: SODIUM CHLORIDE 0.9% IVPB SCH ×3 (04:46→20:45)
[2021-12-20] MEDS: ERYTHROMYCIN IVPB SCH ×3 (04:46→20:45)
[2021-12-20] MEDS ORDERED: SODIUM CHLORIDE 0.9% IVPB SCH (05:00)
[2021-12-20] MEDS ORDERED: ERYTHROMYCIN IVPB SCH (05:00)
[2021-12-20 05:37] LABS: ALT (SGPT) Less than 7 U/L (8-55); AST (SGOT) 21 U/L (5-34); Albumin 2.3 g/dL (3.4-4.8); Alkaline Phosphatase 147 U/L (40-110); Anion Gap 15 mmol/L (10-20); BUN (Urea Nitrogen) 33 mg/dL (9.8-20.1); Bilirubin, Total 0.6 mg/dL (0.2-1.2); Calc. Creatinine Clearance 30 mL/min (70-130); Calcium 7.7 mg/dL (7.8-10.44); Carbon Dioxide 24 mmol/L (23-31); Chloride 100 mmol/L (98-107); Estimated GFR 36; Globulin 2.5 g/dL (2.4-3.5); Glucose 128 mg/dL (80-115); Potassium 3.7 mmol/L (3.5-5.1); Protein, Total 4.8 g/dL (5.8-8.1); Sodium 135 mmol/L (136-145)
[2021-12-20 05:44] LABS: Band 17 % (5-11); Hemoglobin 7.7 g/dL (12.0-16.0); Hypochromia SLIGHT = 6-15 cells (100X) (0-5/hpf); Lymphocytes 16 % (21-51); MDiff Complete? YES; Mean Corpuscular HGB CONC 31.4 g/dL (32.0-36.0); Mean Corpuscular Hemoglobin 30.9 pg (27.0-31.0); Mean Corpuscular Volume 98.4 fl (78.0-98.0); Mean Platelet Volume 10.4 fL (7.4-10.4); Monocytes 3 % (0-10); Neutrophil 64 % (42-75); Platelet Count 230 10x3/uL (130-400); Platelet Morphology Comment Appears Adequate; Polychromasia SLIGHT = 2-3 cells (100X) (0-2/hpf); RBC Distribution Width 20.6 % (11.5-14.5); Red Blood Cell (RBC) Count 2.49 mill/uL (4.20-5.40); White Blood Cell (WBC) Count 9.1 10x3/uL (4.8-10.8)
[2021-12-20] MEDS: Amlodipine 5 MG TAB PO SCH (08:16)
[2021-12-20] MEDS: predniSONE 5 MG TAB PO SCH (08:16)
[2021-12-20] MEDS: Saccharomyces boulardii 250 MG CAP PO SCH (08:16)
[2021-12-20] MEDS: Tacrolimus 1 MG CAP PO SCH ×2 (08:17→20:34)
[2021-12-20] MEDS: oxyCODONE 5 MG TAB PO PRN (08:17)
[2021-12-20] MEDS: Pantoprazole 40 MG VIAL IVP SCH (08:19)
[2021-12-20] MEDS: Carvedilol 25 MG TAB PO SCH ×2 (08:19→16:48)
[2021-12-20] MEDS: Ondansetron HCl/PF 8 MG in Sodium Chloride 0.9% 50 ML IVPB SCH ×2 (08:19→20:33)
[2021-12-20] MEDS: HumaLOG 300 UNITS/3 ML VIAL SC PRN ×2 (11:40→16:48)
[2021-12-20] MEDS: Cyclobenzaprine 10 MG TAB PO SCH ×2 (15:20→20:33)
[2021-12-20] MEDS: Meropenem 500 MG in Sodium Chloride 0.9% 100 ML IVPB SCH (16:48)
[2021-12-20] MEDS ORDERED: Acetaminophen 325 MG TAB PER TUBE SCH (20:00)
[2021-12-21] MEDS: Acetaminophen 325 MG TAB PER TUBE SCH ×6 (00:05→20:59)
[2021-12-21] MEDS: ERYTHROMYCIN IVPB SCH ×3 (05:03→20:58)
[2021-12-21] MEDS: SODIUM CHLORIDE 0.9% IVPB SCH ×3 (05:03→20:58)
[2021-12-21 05:38] LABS: ALT (SGPT) 7 U/L (8-55); AST (SGOT) 22 U/L (5-34); Albumin 2.6 g/dL (3.4-4.8); Alkaline Phosphatase 159 U/L (40-110); Anion Gap 15 mmol/L (10-20); BUN (Urea Nitrogen) 50 mg/dL (9.8-20.1); Bilirubin, Total 0.6 mg/dL (0.2-1.2); Calc. Creatinine Clearance 10 mL/min (70-130); Calcium 8.4 mg/dL (7.8-10.44); Carbon Dioxide 23 mmol/L (23-31); Chloride 99 mmol/L (98-107); Estimated GFR 24; Globulin 2.8 g/dL (2.4-3.5); Glucose 163 mg/dL (80-115); Potassium 4.8 mmol/L (3.5-5.1); Protein, Total 5.4 g/dL (5.8-8.1); Sodium 132 mmol/L (136-145)
[2021-12-21] MEDS: Scopolamine 1.5 mg/72 hour Patch TD SCH (06:40)
[2021-12-21] MEDS: Cyclobenzaprine 10 MG TAB PO SCH ×3 (09:28→20:59)
[2021-12-21] MEDS: predniSONE 5 MG TAB PO SCH (09:28)
[2021-12-21] MEDS: Albumin 25% 25 GM/100 ML BOT IVPB SCH ×2 (09:28→15:28)
[2021-12-21] MEDS: Tacrolimus 1 MG CAP PO SCH ×2 (09:28→20:59)
[2021-12-21] MEDS: Ondansetron HCl/PF 8 MG in Sodium Chloride 0.9% 50 ML IVPB SCH ×2 (09:29→20:59)
[2021-12-21] MEDS: Pantoprazole 40 MG VIAL IVP SCH (09:29)
[2021-12-21] MEDS: Amlodipine 5 MG TAB PO SCH (09:29)
[2021-12-21] MEDS: Saccharomyces boulardii 250 MG CAP PO SCH (09:29)
[2021-12-21] MEDS: Carvedilol 25 MG TAB PO SCH ×2 (09:30→17:31)
[2021-12-21 09:32] LABS: Anisocytosis SLIGHT = 6-15 cells (100X) (0-5/hpf); Band 25 % (5-11); Eosinophils 2 % (0-10); Hemoglobin 7.8 g/dL (12.0-16.0); Lymphocytes 8 % (21-51); MDiff Complete? YES; Mean Corpuscular Hemoglobin 31.3 pg (27.0-31.0); Mean Platelet Volume 10.1 fL (7.4-10.4); Metamyelocyte 2 % (0-0); Monocytes 1 % (0-10); Neutrophil 62 % (42-75); Platelet Count 237 10x3/uL (130-400); Platelet Morphology Comment Appears Adequate; RBC Distribution Width 20.8 % (11.5-14.5); Red Blood Cell (RBC) Count 2.49 mill/uL (4.20-5.40); White Blood Cell (WBC) Count 12.7 10x3/uL (4.8-10.8)
[2021-12-21] MEDS: HumaLOG 300 UNITS/3 ML VIAL SC PRN ×2 (11:26→17:24)
[2021-12-21] MEDS ORDERED: Fluconazole In NaCl,Iso-Osm 100 MG in Premix Bag 1 BAG IVPB SCH (14:45)
[2021-12-21] MEDS ORDERED: Fluconazole In NaCl,Iso-Osm 100 MG in Admixture Fee 1 EACH IVPB SCH ×2 (16:00)
[2021-12-21] MEDS ORDERED: Cyclobenzaprine 10 MG TAB PO SCH (16:45)
[2021-12-21] MEDS: Meropenem 500 MG in Sodium Chloride 0.9% 100 ML IVPB SCH (17:24)
[2021-12-22] MEDS: Acetaminophen 325 MG TAB PER TUBE SCH ×6 (00:21→21:07)
[2021-12-22 05:21] LABS: #Lymphocytes 0.9 thou/uL (1.20-3.40); #Monocytes 0.7 thou/uL (0.11-0.59); %Basophils 0.1 % (0.0-1.0); %Eosinophils 0.4 % (0.0-10.0); %Lymphocytes 9.4 % (21.0-51.0); %Monocytes 7.5 % (0.0-10.0); %Neutrophils 82.6 % (42.0-75.0); Hemoglobin 8.3 g/dL (12.0-16.0); Mean Corpuscular Hemoglobin 31.7 pg (27.0-31.0); Mean Corpuscular Volume 99.3 fl (78.0-98.0); Mean Platelet Volume 10.5 fL (7.4-10.4); Platelet Count 226 10x3/uL (130-400); RBC Distribution Width 20.7 % (11.5-14.5); Red Blood Cell (RBC) Count 2.63 mill/uL (4.20-5.40); White Blood Cell (WBC) Count 9.7 10x3/uL (4.8-10.8)
[2021-12-22 05:41] LABS: ALT (SGPT) Less than 7 U/L (8-55); AST (SGOT) 25 U/L (5-34); Albumin 3.1 g/dL (3.4-4.8); Alkaline Phosphatase 149 U/L (40-110); Anion Gap 18 mmol/L (10-20); BUN (Urea Nitrogen) 31 mg/dL (9.8-20.1); Calc. Creatinine Clearance 36 mL/min (70-130); Calcium 8.5 mg/dL (7.8-10.44); Carbon Dioxide 23 mmol/L (23-31); Chloride 97 mmol/L (98-107); Estimated GFR 45; Globulin 2.8 g/dL (2.4-3.5); Glucose 122 mg/dL (80-115); Potassium 3.9 mmol/L (3.5-5.1); Protein, Total 5.9 g/dL (5.8-8.1); Sodium 134 mmol/L (136-145)
[2021-12-22] MEDS: SODIUM CHLORIDE 0.9% IVPB SCH ×3 (05:41→21:07)
[2021-12-22] MEDS: ERYTHROMYCIN IVPB SCH ×3 (05:41→21:07)
[2021-12-22] MEDS: HumaLOG 300 UNITS/3 ML VIAL SC PRN ×2 (05:44→17:16)
[2021-12-22] MEDS: Saccharomyces boulardii 250 MG CAP PO SCH (08:57)
[2021-12-22] MEDS: Pantoprazole 40 MG VIAL IVP SCH (08:57)
[2021-12-22] MEDS: Ondansetron HCl/PF 8 MG in Sodium Chloride 0.9% 50 ML IVPB SCH ×2 (08:57→21:07)
[2021-12-22] MEDS: Tacrolimus 1 MG CAP PO SCH ×2 (08:57→21:07)
[2021-12-22] MEDS: Carvedilol 25 MG TAB PO SCH ×2 (08:57→17:16)
[2021-12-22] MEDS: Amlodipine 5 MG TAB PO SCH (08:58)
[2021-12-22] MEDS: Cyclobenzaprine 10 MG TAB PO SCH ×3 (08:59→21:07)
[2021-12-22] MEDS: predniSONE 5 MG TAB PO SCH (08:59)
[2021-12-22] MEDS: FLUCONAZOLE IVPB SCH (09:26)
[2021-12-22] MEDS: NACL ISO OSM IVPB SCH (09:26)
[2021-12-22] MEDS: ADMIXTURE FEE IVPB SCH (09:26)
[2021-12-22] MEDS: Meropenem 500 MG in Sodium Chloride 0.9% 100 ML IVPB SCH (17:15)
[2021-12-23] MEDS: Acetaminophen 325 MG TAB PER TUBE SCH ×7 (00:18→20:56)
[2021-12-23 05:18] LABS: ALT (SGPT) 7 U/L (8-55); AST (SGOT) 23 U/L (5-34); Albumin 2.9 g/dL (3.4-4.8); Alkaline Phosphatase 167 U/L (40-110); Anion Gap 15 mmol/L (10-20); BUN (Urea Nitrogen) 59 mg/dL (9.8-20.1); Bilirubin, Total 0.6 mg/dL (0.2-1.2); Calc. Creatinine Clearance 24 mL/min (70-130); Calcium 8.4 mg/dL (7.8-10.44); Carbon Dioxide 25 mmol/L (23-31); Chloride 98 mmol/L (98-107); Estimated GFR 27; Globulin 2.5 g/dL (2.4-3.5); Glucose 229 mg/dL (80-115); Potassium 4.7 mmol/L (3.5-5.1); Protein, Total 5.4 g/dL (5.8-8.1); Sodium 133 mmol/L (136-145)
[2021-12-23 05:57] LABS: Anisocytosis MODERATE=16-30 cells (100X) (0-5/hpf); Band 19 % (5-11); Hypochromia SLIGHT = 6-15 cells (100X) (0-5/hpf); Lymphocytes 10 % (21-51); MDiff Complete? YES; Mean Corpuscular HGB CONC 31.1 g/dL (32.0-36.0); Mean Corpuscular Hemoglobin 30.5 pg (27.0-31.0); Mean Corpuscular Volume 98.1 fl (78.0-98.0); Mean Platelet Volume 10.2 fL (7.4-10.4); Monocytes 3 % (0-10); Neutrophil 68 % (42-75); Platelet Count 265 10x3/uL (130-400); RBC Distribution Width 20.8 % (11.5-14.5); Red Blood Cell (RBC) Count 2.61 mill/uL (4.20-5.40); White Blood Cell (WBC) Count 8.6 10x3/uL (4.8-10.8)
[2021-12-23] MEDS: SODIUM CHLORIDE 0.9% IVPB SCH ×3 (06:18→20:57)
[2021-12-23] MEDS: ERYTHROMYCIN IVPB SCH ×3 (06:18→20:57)
[2021-12-23] MEDS: HumaLOG 300 UNITS/3 ML VIAL SC PRN ×2 (06:19→16:41)
[2021-12-23] MEDS: Saccharomyces boulardii 250 MG CAP PO SCH (13:19)
[2021-12-23] MEDS: Tacrolimus 1 MG CAP PO SCH ×2 (13:19→20:40)
[2021-12-23] MEDS: predniSONE 5 MG TAB PO SCH (13:19)
[2021-12-23] MEDS: Amlodipine 5 MG TAB PO SCH (13:19)
[2021-12-23] MEDS: Carvedilol 25 MG TAB PO SCH ×3 (13:19→20:56)
[2021-12-23] MEDS: Ondansetron HCl/PF 8 MG in Sodium Chloride 0.9% 50 ML IVPB SCH ×2 (13:20→20:57)
[2021-12-23] MEDS: Cyclobenzaprine 10 MG TAB PO SCH ×2 (13:20→15:19)
[2021-12-23] MEDS: Pantoprazole 40 MG VIAL IVP SCH (13:20)
[2021-12-23] MEDS: NACL ISO OSM IVPB SCH (14:18)
[2021-12-23] MEDS: ADMIXTURE FEE IVPB SCH (14:18)
[2021-12-23] MEDS: FLUCONAZOLE IVPB SCH (14:18)
[2021-12-23] MEDS: Meropenem 500 MG in Sodium Chloride 0.9% 100 ML IVPB SCH (16:38)
[2021-12-23] MEDS ORDERED: EPOETIN ALFA-EPBX (ESRD) 10,000 UNIT/ML VIAL SC SCH (17:00)
[2021-12-23] MEDS: Epoetin (ESRD) 10,000 UNITS/ML VIAL SC SCH (17:28)
[2021-12-23] MEDS ORDERED: Cyclobenzaprine 10 MG TAB PO PRN (18:53)
[2021-12-23] MEDS: Metoclopramide HCl 10 MG/2 ML VIAL IVP SCH (20:40)
[2021-12-24] MEDS: Acetaminophen 325 MG TAB PER TUBE SCH ×6 (01:32→21:39)
[2021-12-24 04:54] LABS: ALT (SGPT) Less than 7 U/L (8-55); AST (SGOT) 25 U/L (5-34); Albumin 2.8 g/dL (3.4-4.8); Alkaline Phosphatase 135 U/L (40-110); Anion Gap 14 mmol/L (10-20); BUN (Urea Nitrogen) 53 mg/dL (9.8-20.1); Bilirubin, Total 0.6 mg/dL (0.2-1.2); Calc. Creatinine Clearance 27 mL/min (70-130); Calcium 8.4 mg/dL (7.8-10.44); Carbon Dioxide 25 mmol/L (23-31); Chloride 98 mmol/L (98-107); Estimated GFR 31; Glucose 209 mg/dL (80-115); Potassium 4.5 mmol/L (3.5-5.1); Protein, Total 5.8 g/dL (5.8-8.1); Sodium 132 mmol/L (136-145)
[2021-12-24 05:23] LABS: Band 13 % (5-11); Large Platelets SLIGHT; Lymphocytes 8 % (21-51); MDiff Complete? YES; Mean Corpuscular HGB CONC 30.6 g/dL (32.0-36.0); Mean Corpuscular Hemoglobin 30.4 pg (27.0-31.0); Mean Corpuscular Volume 99.3 fl (78.0-98.0); Mean Platelet Volume 10.7 fL (7.4-10.4); Monocytes 8 % (0-10); Myelocyte 1 % (0-0); Neutrophil 70 % (42-75); Platelet Count 261 10x3/uL (130-400); RBC Distribution Width 20.8 % (11.5-14.5); Red Blood Cell (RBC) Count 2.64 mill/uL (4.20-5.40); Schistocytes SLIGHT = 2-5 cells (100X) (0-1/hpf); White Blood Cell (WBC) Count 7.7 10x3/uL (4.8-10.8)
[2021-12-24] MEDS: ERYTHROMYCIN IVPB SCH ×3 (05:41→21:40)
[2021-12-24] MEDS: SODIUM CHLORIDE 0.9% IVPB SCH ×3 (05:41→21:40)
[2021-12-24] MEDS: Metoclopramide HCl 10 MG/2 ML VIAL IVP SCH (05:41)
[2021-12-24] MEDS: HumaLOG 300 UNITS/3 ML VIAL SC PRN (05:44)
[2021-12-24] MEDS: Scopolamine 1.5 mg/72 hour Patch TD SCH (06:14)
[2021-12-24] MEDS: Saccharomyces boulardii 250 MG CAP PO SCH (10:32)
[2021-12-24] MEDS: Pantoprazole 40 MG VIAL IVP SCH (10:32)
[2021-12-24] MEDS: Amlodipine 5 MG TAB PO SCH (10:32)
[2021-12-24] MEDS: predniSONE 5 MG TAB PO SCH (10:32)
[2021-12-24] MEDS: Tacrolimus 1 MG CAP PO SCH ×2 (10:32→21:39)
[2021-12-24] MEDS: FLUCONAZOLE IVPB SCH (10:33)
[2021-12-24] MEDS: Ondansetron HCl/PF 8 MG in Sodium Chloride 0.9% 50 ML IVPB SCH ×2 (10:33→21:40)
[2021-12-24] MEDS: Carvedilol 25 MG TAB PO SCH ×2 (10:33→17:48)
[2021-12-24] MEDS: ADMIXTURE FEE IVPB SCH (10:33)
[2021-12-24] MEDS: NACL ISO OSM IVPB SCH (10:33)
[2021-12-24] MEDS: Metoclopramide 10 MG/10 ML UDCUP PER TUBE SCH ×2 (14:10→21:39)
[2021-12-24] MEDS: Meropenem 500 MG in Sodium Chloride 0.9% 100 ML IVPB SCH (17:49)
[2021-12-25] MEDS: Acetaminophen 325 MG TAB PER TUBE SCH ×6 (01:09→20:51)
[2021-12-25] MEDS: Metoclopramide 10 MG/10 ML UDCUP PER TUBE SCH ×3 (05:07→20:55)
[2021-12-25] MEDS: SODIUM CHLORIDE 0.9% IVPB SCH ×2 (05:07→13:29)
[2021-12-25] MEDS: ERYTHROMYCIN IVPB SCH ×2 (05:07→13:29)
[2021-12-25 06:03] LABS: ALT (SGPT) 9 U/L (8-55); AST (SGOT) 22 U/L (5-34); Albumin 2.5 g/dL (3.4-4.8); Alkaline Phosphatase 139 U/L (40-110); Anion Gap 15 mmol/L (10-20); BUN (Urea Nitrogen) 67 mg/dL (9.8-20.1); Bilirubin, Total 0.5 mg/dL (0.2-1.2); Calc. Creatinine Clearance 25 mL/min (70-130); Calcium 8.3 mg/dL (7.8-10.44); Carbon Dioxide 25 mmol/L (23-31); Chloride 98 mmol/L (98-107); Estimated GFR 28; Globulin 2.6 g/dL (2.4-3.5); Glucose 163 mg/dL (80-115); Potassium 4.6 mmol/L (3.5-5.1); Protein, Total 5.1 g/dL (5.8-8.1); Sodium 133 mmol/L (136-145)
[2021-12-25 06:31] LABS: Anisocytosis SLIGHT = 6-15 cells (100X) (0-5/hpf); Band 20 % (5-11); Eosinophils 1 % (0-10); Hemoglobin 7.3 g/dL (12.0-16.0); Lymphocytes 11 % (21-51); MDiff Complete? YES; Mean Corpuscular HGB CONC 31.3 g/dL (32.0-36.0); Mean Corpuscular Hemoglobin 30.9 pg (27.0-31.0); Mean Corpuscular Volume 98.8 fl (78.0-98.0); Mean Platelet Volume 10.1 fL (7.4-10.4); Monocytes 4 % (0-10); Neutrophil 64 % (42-75); Platelet Count 268 10x3/uL (130-400); RBC Distribution Width 21.1 % (11.5-14.5); Red Blood Cell (RBC) Count 2.36 mill/uL (4.20-5.40); White Blood Cell (WBC) Count 6.2 10x3/uL (4.8-10.8)
[2021-12-25] MEDS ORDERED: NOREPINEPHRINE 8 MG/250 ML-D5W 0 ML ONE (07:54)
[2021-12-25] MEDS ORDERED: Lansoprazole 3 MG/ML ORAL SUSPENSION PER TUBE SCH (09:00)
[2021-12-25] MEDS: ADMIXTURE FEE IVPB SCH (09:31)
[2021-12-25] MEDS: FLUCONAZOLE IVPB SCH (09:31)
[2021-12-25] MEDS: Ondansetron HCl/PF 8 MG in Sodium Chloride 0.9% 50 ML IVPB SCH ×2 (09:31→20:52)
[2021-12-25] MEDS: NACL ISO OSM IVPB SCH (09:31)
[2021-12-25] MEDS: predniSONE 5 MG TAB PO SCH (09:32)
[2021-12-25] MEDS: Tacrolimus 1 MG CAP PO SCH ×2 (09:32→20:52)
[2021-12-25] MEDS: Carvedilol 25 MG TAB PO SCH ×2 (09:32→16:05)
[2021-12-25] MEDS: Saccharomyces boulardii 250 MG CAP PO SCH (09:32)
[2021-12-25] MEDS: Amlodipine 5 MG TAB PO SCH (09:32)
[2021-12-25] MEDS: HumaLOG 300 UNITS/3 ML VIAL SC PRN ×2 (10:59→17:00)
[2021-12-25] MEDS ORDERED: Cyclobenzaprine 10 MG TAB PO PRN (13:46)
[2021-12-26] MEDS: Acetaminophen 325 MG TAB PER TUBE SCH ×6 (00:52→20:59)
[2021-12-26 05:00] LABS: ALT (SGPT) 11 U/L (8-55); AST (SGOT) 23 U/L (5-34); Albumin 2.6 g/dL (3.4-4.8); Alkaline Phosphatase 158 U/L (40-110); Anion Gap 15 mmol/L (10-20); BUN (Urea Nitrogen) 88 mg/dL (9.8-20.1); Bilirubin, Total 0.5 mg/dL (0.2-1.2); Calc. Creatinine Clearance 21 mL/min (70-130); Calcium 8.2 mg/dL (7.8-10.44); Carbon Dioxide 24 mmol/L (23-31); Chloride 98 mmol/L (98-107); Estimated GFR 23; Globulin 2.8 g/dL (2.4-3.5); Glucose 175 mg/dL (80-115); Potassium 4.9 mmol/L (3.5-5.1); Protein, Total 5.4 g/dL (5.8-8.1); Sodium 132 mmol/L (136-145)
[2021-12-26 05:15] LABS: Anisocytosis SLIGHT = 6-15 cells (100X) (0-5/hpf); Band 14 % (5-11); Eosinophils 2 % (0-10); Hemoglobin 7.5 g/dL (12.0-16.0); Large Platelets SLIGHT; Lymphocytes 17 % (21-51); MDiff Complete? YES; Mean Corpuscular HGB CONC 31.9 g/dL (32.0-36.0); Mean Corpuscular Hemoglobin 31.1 pg (27.0-31.0); Mean Corpuscular Volume 97.4 fl (78.0-98.0); Mean Platelet Volume 9.6 fL (7.4-10.4); Monocytes 5 % (0-10); Myelocyte 1 % (0-0); Neutrophil 61 % (42-75); Platelet Count 307 10x3/uL (130-400); Platelet Morphology Comment Appears Adequate; RBC Distribution Width 20.7 % (11.5-14.5)
[2021-12-26] MEDS: Metoclopramide 10 MG/10 ML UDCUP PER TUBE SCH ×3 (05:39→20:59)
[2021-12-26] MEDS: HumaLOG 300 UNITS/3 ML VIAL SC PRN ×2 (05:40→20:59)
[2021-12-26] MEDS: Lansoprazole 15 MG/5 ML (BATCHED)UDCUP PER TUBE SCH (08:23)
[2021-12-26] MEDS: Carvedilol 25 MG TAB PO SCH ×2 (08:24→17:37)
[2021-12-26] MEDS: predniSONE 5 MG TAB PO SCH (08:24)
[2021-12-26] MEDS: Saccharomyces boulardii 250 MG CAP PO SCH (08:24)
[2021-12-26] MEDS: Amlodipine 5 MG TAB PO SCH (08:24)
[2021-12-26] MEDS: Tacrolimus 1 MG CAP PO SCH ×2 (08:25→20:59)
[2021-12-26] MEDS: Ondansetron HCl/PF 8 MG in Sodium Chloride 0.9% 50 ML IVPB SCH ×2 (09:30→20:59)
[2021-12-26] MEDS: NACL ISO OSM IVPB SCH (09:56)
[2021-12-26] MEDS: ADMIXTURE FEE IVPB SCH (09:56)
[2021-12-26] MEDS: FLUCONAZOLE IVPB SCH (09:56)
[2021-12-27] MEDS: Acetaminophen 325 MG TAB PER TUBE SCH ×6 (00:44→21:08)
[2021-12-27 04:46] LABS: #Lymphocytes 0.9 thou/uL (1.20-3.40); #Monocytes 0.7 thou/uL (0.11-0.59); #Neutrophils 4.2 thou/uL (1.40-6.50); %Basophils 0.1 % (0.0-1.0); %Eosinophils 0.5 % (0.0-10.0); %Lymphocytes 15.2 % (21.0-51.0); %Monocytes 11.3 % (0.0-10.0); %Neutrophils 72.8 % (42.0-75.0); Hemoglobin 7.1 g/dL (12.0-16.0); Mean Corpuscular HGB CONC 31.8 g/dL (32.0-36.0); Mean Corpuscular Hemoglobin 31.4 pg (27.0-31.0); Mean Corpuscular Volume 98.7 fl (78.0-98.0); Mean Platelet Volume 9.4 fL (7.4-10.4); Platelet Count 329 10x3/uL (130-400); RBC Distribution Width 20.9 % (11.5-14.5); Red Blood Cell (RBC) Count 2.26 mill/uL (4.20-5.40); White Blood Cell (WBC) Count 5.7 10x3/uL (4.8-10.8)
[2021-12-27 05:12] LABS: ALT (SGPT) 8 U/L (8-55); AST (SGOT) 21 U/L (5-34); Albumin 2.5 g/dL (3.4-4.8); Alkaline Phosphatase 130 U/L (40-110); Anion Gap 14 mmol/L (10-20); BUN (Urea Nitrogen) 61 mg/dL (9.8-20.1); Bilirubin, Total 0.5 mg/dL (0.2-1.2); Calc. Creatinine Clearance 30 mL/min (70-130); Carbon Dioxide 26 mmol/L (23-31); Chloride 98 mmol/L (98-107); Estimated GFR 33; Globulin 2.9 g/dL (2.4-3.5); Glucose 151 mg/dL (80-115); Potassium 4.6 mmol/L (3.5-5.1); Protein, Total 5.4 g/dL (5.8-8.1); Sodium 133 mmol/L (136-145)
[2021-12-27] MEDS: Metoclopramide 10 MG/10 ML UDCUP PER TUBE SCH ×3 (05:38→21:09)
[2021-12-27] MEDS: Scopolamine 1.5 mg/72 hour Patch TD SCH (05:39)
[2021-12-27 08:04] LABS: Iron 28 ug/dL (50-170)
[2021-12-27] MEDS: Saccharomyces boulardii 250 MG CAP PO SCH (08:22)
[2021-12-27] MEDS: Lansoprazole 15 MG/5 ML (BATCHED)UDCUP PER TUBE SCH (08:22)
[2021-12-27] MEDS: Tacrolimus 1 MG CAP PO SCH ×2 (08:26→21:09)
[2021-12-27] MEDS: predniSONE 5 MG TAB PO SCH (08:26)
[2021-12-27] MEDS: Amlodipine 5 MG TAB PO SCH (08:26)
[2021-12-27] MEDS: Carvedilol 25 MG TAB PO SCH ×2 (08:27→17:36)
[2021-12-27] MEDS: Ondansetron HCl/PF 8 MG in Sodium Chloride 0.9% 50 ML IVPB SCH ×2 (08:27→21:11)
[2021-12-27 09:11] LABS: Iron Binding Capacity, Total 58 mcg/dL (265-497)
[2021-12-27] MEDS: ADMIXTURE FEE IVPB SCH (09:12)
[2021-12-27] MEDS: FLUCONAZOLE IVPB SCH (09:12)
[2021-12-27] MEDS: NACL ISO OSM IVPB SCH (09:12)
[2021-12-27] MEDS ORDERED: Albumin 25% 25 GM/100 ML BOT IVPB SCH (11:30)
[2021-12-27] MEDS ORDERED: Iron, Sodium Ferric Gluconate 125 MG in Sodium Chloride 0.9% 100 ML IVPB SCH (16:15)
[2021-12-27] MEDS: traMADol HCl 50 MG TAB PER TUBE PRN (21:08)
[2021-12-27] MEDS: HumaLOG 300 UNITS/3 ML VIAL SC PRN (21:17)
[2021-12-28] MEDS: Acetaminophen 325 MG TAB PER TUBE SCH ×6 (01:07→21:23)
[2021-12-28 03:55] LABS: Band 22 % (5-11); Eosinophils 2 % (0-10); Hemoglobin 6.7 g/dL (12.0-16.0); Lymphocytes 11 % (21-51); MDiff Complete? YES; Mean Corpuscular HGB CONC 31.2 g/dL (32.0-36.0); Mean Corpuscular Hemoglobin 30.7 pg (27.0-31.0); Mean Corpuscular Volume 98.6 fl (78.0-98.0); Mean Platelet Volume 8.8 fL (7.4-10.4); Monocytes 7 % (0-10); Neutrophil 58 % (42-75); Platelet Count 304 10x3/uL (130-400); RBC Distribution Width 19.9 % (11.5-14.5); Red Blood Cell (RBC) Count 2.19 mill/uL (4.20-5.40); White Blood Cell (WBC) Count 5.6 10x3/uL (4.8-10.8)
[2021-12-28 04:12] LABS: Albumin 2.8 g/dL (3.4-4.8)
[2021-12-28 04:13] LABS: Chloride 96 mmol/L (98-107); Potassium 4.9 mmol/L (3.5-5.1); Sodium 132 mmol/L (136-145)
[2021-12-28 04:14] LABS: Calcium 8.2 mg/dL (7.8-10.44); Globulin 2.6 g/dL (2.4-3.5); Glucose 177 mg/dL (80-115); Protein, Total 5.4 g/dL (5.8-8.1)
[2021-12-28 04:15] LABS: Carbon Dioxide 28 mmol/L (23-31)
[2021-12-28 04:16] LABS: Anion Gap 13 mmol/L (10-20); Bilirubin, Total 0.6 mg/dL (0.2-1.2)
[2021-12-28 04:17] LABS: Alkaline Phosphatase 113 U/L (40-110)
[2021-12-28 04:18] LABS: BUN (Urea Nitrogen) 84 mg/dL (9.8-20.1); Calc. Creatinine Clearance 24 mL/min (70-130); Estimated GFR 27
[2021-12-28 04:19] LABS: AST (SGOT) 13 U/L (5-34)
[2021-12-28 04:20] LABS: ALT (SGPT) 8 U/L (8-55)
[2021-12-28] MEDS: Metoclopramide 10 MG/10 ML UDCUP PER TUBE SCH ×3 (05:27→21:22)
[2021-12-28] MEDS: HumaLOG 300 UNITS/3 ML VIAL SC PRN ×2 (06:37→17:58)
[2021-12-28] MEDS: EPOETIN ALFA-EPBX (ESRD) 10,000 UNIT/ML VIAL SC SCH (10:29)
[2021-12-28] MEDS: FLUCONAZOLE IVPB SCH (10:30)
[2021-12-28] MEDS: Ondansetron HCl/PF 8 MG in Sodium Chloride 0.9% 50 ML IVPB SCH ×2 (10:30→21:22)
[2021-12-28] MEDS: ADMIXTURE FEE IVPB SCH (10:30)
[2021-12-28] MEDS: NACL ISO OSM IVPB SCH (10:30)
[2021-12-28] MEDS: Lansoprazole 15 MG/5 ML (BATCHED)UDCUP PER TUBE SCH (10:31)
[2021-12-28] MEDS: Saccharomyces boulardii 250 MG CAP PO SCH (10:32)
[2021-12-28] MEDS: Amlodipine 5 MG TAB PO SCH (10:32)
[2021-12-28] MEDS: Tacrolimus 1 MG CAP PO SCH ×2 (10:32→21:22)
[2021-12-28] MEDS: predniSONE 5 MG TAB PO SCH (10:32)
[2021-12-28] MEDS: Carvedilol 25 MG TAB PO SCH ×2 (10:32→17:58)
[2021-12-28] MEDS: Albumin 25% 25 GM/100 ML BOT IVPB SCH (12:03)
[2021-12-28] MEDS ORDERED: Albumin 25% 100 ML ONE (12:49)
[2021-12-28 15:39] LABS: Hemoglobin 7.9 g/dL (12.0-16.0)
[2021-12-29] MEDS: Acetaminophen 325 MG TAB PER TUBE SCH ×6 (01:44→20:22)
[2021-12-29 03:19] LABS: Actual Bicarbonate (HCO3a) 26.4 mEq/L (22-28); Base Excess (BEa) -0.3 mEq/L (-2.0 to +3.0); CO2 Tension 54.2 mmHg (35.0-45.0); Calcium, Ionized (arterial) 1.21 mmol/L (1.12-1.30); Carboxyhemoglobin (COHb) 0.8 gm% (0.0-3.0); Hemoglobin (Hb) 9.2 g/dL (12.0-16.0); Potassium - ABG Lab 4.24 mmol/L (3.70-5.30); pH, Arterial 7.31 (7.35-7.45)
[2021-12-29 03:27] LABS: O2 Tension (PaO2), arterial 40.1 mmHg (> 70.0); Puncture Site LBR
[2021-12-29] MEDS ORDERED: Propofol 1,000 MG/100 ML VIAL IV ONE (03:29)
[2021-12-29] MEDS ORDERED: NOREPINEPHRINE 8 MG/250 ML-D5W 250 ML ONE (03:30)
[2021-12-29] MEDS ORDERED: Midazolam HCl 2 mg/2 ml Vial SLOW IVP PRN (03:52)
[2021-12-29] MEDS ORDERED: Propofol BOLUS 1,000 MG/100 ML VIAL IV PRN (04:00)
[2021-12-29] MEDS: Ondansetron PF 4 MG/2 ML Vial IVP PRN (04:00)
[2021-12-29] MEDS ORDERED: DISCONTINUE PREVIOUS NARCOTIC PAIN MEDICATIONS AND BENZODIAZEPINES FS SCH (04:00)
[2021-12-29] MEDS ORDERED: Piperacillin/Tazobactam 3.375 GM in Sodium Chloride 0.9% 100 ML IVPB SCH (04:00)
[2021-12-29] MEDS ORDERED: Fentanyl CADD 100 ML IV SCH (04:00)
[2021-12-29] MEDS ORDERED: Propofol 1,000 MG/100 ML VIAL IV SCH (04:00)
[2021-12-29] MEDS ORDERED: Ventilator Sedation Protocol 1 EACH FS SCH (04:00)
[2021-12-29] MEDS ORDERED: Fentanyl BOLUS 250 ML IVPB PRN (04:00)
[2021-12-29] MEDS ORDERED: Sodium Chloride 0.9% 15 ML NEB ONE (04:02)
[2021-12-29 04:15] LABS: Actual Bicarbonate (HCO3a) 28.7 mEq/L (22-28); Base Excess (BEa) 4.1 mEq/L (-2.0 to +3.0); CO2 Tension 43.1 mmHg (35.0-45.0); Calcium, Ionized (arterial) 1.15 mmol/L (1.12-1.30); Carboxyhemoglobin (COHb) 0.9 gm% (0.0-3.0); Hemoglobin (Hb) 8.7 g/dL (12.0-16.0); O2 Tension (PaO2), arterial 87.9 mmHg (> 70.0); Potassium - ABG Lab 4.12 mmol/L (3.70-5.30); pH, Arterial 7.44 (7.35-7.45)
[2021-12-29 04:16] LABS: ALV-art Gradient 571.225 mmHg (0-20); Puncture Site LBA
[2021-12-29] MEDS ORDERED: NOREPINEPHRINE 8 MG/250 ML-D5W 250 ML IVPB SCH (04:30)
[2021-12-29 05:52] LABS: ALT (SGPT) 7 U/L (8-55); AST (SGOT) 16 U/L (5-34); Albumin 3.3 g/dL (3.4-4.8); Alkaline Phosphatase 119 U/L (40-110); Anion Gap 12 mmol/L (10-20); BUN (Urea Nitrogen) 64 mg/dL (9.8-20.1); Bilirubin, Total 0.8 mg/dL (0.2-1.2); Calc. Creatinine Clearance 26 mL/min (70-130); Calcium 8.7 mg/dL (7.8-10.44); Carbon Dioxide 29 mmol/L (23-31); Chloride 97 mmol/L (98-107); Estimated GFR 32; Globulin 2.6 g/dL (2.4-3.5); Glucose 156 mg/dL (80-115); Potassium 4.2 mmol/L (3.5-5.1); Protein, Total 5.9 g/dL (5.8-8.1); Sodium 134 mmol/L (136-145)
[2021-12-29] MEDS: Metoclopramide 10 MG/10 ML UDCUP PER TUBE SCH ×3 (06:27→21:59)
[2021-12-29 08:18] LABS: #Basophils 0.1 thou/uL (0.0-0.2); #Lymphocytes 1.5 thou/uL (1.20-3.40); #Monocytes 0.5 thou/uL (0.11-0.59); #Neutrophils 4.3 thou/uL (1.40-6.50); %Basophils 1.1 % (0.0-1.0); %Eosinophils 0.8 % (0.0-10.0); %Lymphocytes 22.9 % (21.0-51.0); %Monocytes 8.1 % (0.0-10.0); %Neutrophils 67.2 % (42.0-75.0); Hemoglobin 9.1 g/dL (12.0-16.0); Mean Corpuscular HGB CONC 31.6 g/dL (32.0-36.0); Mean Corpuscular Hemoglobin 31.1 pg (27.0-31.0); Mean Corpuscular Volume 98.3 fl (78.0-98.0); Platelet Count 311 10x3/uL (130-400); RBC Distribution Width 18.4 % (11.5-14.5); Red Blood Cell (RBC) Count 2.92 mill/uL (4.20-5.40); White Blood Cell (WBC) Count 6.3 10x3/uL (4.8-10.8)
[2021-12-29] MEDS ORDERED: methylPREDNISolone Sod Succ 40 MG VIAL IVP SCH (09:30)
[2021-12-29] MEDS: Carvedilol 25 MG TAB PO SCH ×2 (09:35→17:29)
[2021-12-29] MEDS: Amlodipine 5 MG TAB PO SCH (09:36)
[2021-12-29 09:40] LABS: Anisocytosis SLIGHT = 6-15 cells (100X) (0-5/hpf); Band 21 % (5-11); Eosinophils 3 % (0-10); Hemoglobin 8.1 g/dL (12.0-16.0); Lymphocytes 11 % (21-51); MDiff Complete? YES; Mean Corpuscular Hemoglobin 30.6 pg (27.0-31.0); Mean Corpuscular Volume 98.7 fl (78.0-98.0); Monocytes 6 % (0-10); Neutrophil 59 % (42-75); Platelet Count 314 10x3/uL (130-400); Platelet Morphology Comment Appears Adequate; RBC Distribution Width 18.5 % (11.5-14.5); Red Blood Cell (RBC) Count 2.64 mill/uL (4.20-5.40); White Blood Cell (WBC) Count 5.9 10x3/uL (4.8-10.8)
[2021-12-29] MEDS: Lansoprazole 15 MG/5 ML (BATCHED)UDCUP PER TUBE SCH (09:44)
[2021-12-29] MEDS: Saccharomyces boulardii 250 MG CAP PO SCH (09:44)
[2021-12-29] MEDS: Tacrolimus 1 MG CAP PO SCH ×2 (09:45→21:59)
[2021-12-29] MEDS: Piperacillin/Tazobactam 3.375 GM in Sodium Chloride 0.9% 100 ML IVPB SCH ×2 (09:45→20:22)
[2021-12-29] MEDS: Albumin 25% 25 GM/100 ML BOT IVPB SCH (15:19)
[2021-12-29] MEDS: Propofol 1,000 MG/100 ML VIAL IV PRN (17:41)
[2021-12-29] MEDS: NACL ISO OSM IVPB SCH (19:05)
[2021-12-29] MEDS: Ondansetron HCl/PF 8 MG in Sodium Chloride 0.9% 50 ML IVPB SCH (19:05)
[2021-12-29] MEDS: predniSONE 5 MG TAB PO SCH (19:05)
[2021-12-29] MEDS: FLUCONAZOLE IVPB SCH (19:05)
[2021-12-29] MEDS: ADMIXTURE FEE IVPB SCH (19:05)
[2021-12-29] MEDS: traMADol HCl 50 MG TAB PER TUBE PRN (22:01)
[2021-12-30] MEDS: HumaLOG 300 UNITS/3 ML VIAL SC PRN ×4 (01:19→18:44)
[2021-12-30] MEDS: Acetaminophen 325 MG TAB PER TUBE SCH ×2 (01:20→04:35)
[2021-12-30 05:23] LABS: ALT (SGPT) Less than 7 U/L (8-55); AST (SGOT) 12 U/L (5-34); Alkaline Phosphatase 106 U/L (40-110); Anion Gap 18 mmol/L (10-20); BUN (Urea Nitrogen) 80 mg/dL (9.8-20.1); Bilirubin, Total 0.9 mg/dL (0.2-1.2); Calc. Creatinine Clearance 20 mL/min (70-130); Calcium 8.6 mg/dL (7.8-10.44); Carbon Dioxide 23 mmol/L (23-31); Chloride 95 mmol/L (98-107); Estimated GFR 24; Globulin 2.8 g/dL (2.4-3.5); Glucose 250 mg/dL (80-115); Potassium 4.2 mmol/L (3.5-5.1); Protein, Total 5.8 g/dL (5.8-8.1); Sodium 132 mmol/L (136-145)
[2021-12-30 06:07] LABS: Anisocytosis SLIGHT = 6-15 cells (100X) (0-5/hpf); Band 33 % (5-11); Hemoglobin 8.4 g/dL (12.0-16.0); Hypochromia SLIGHT = 6-15 cells (100X) (0-5/hpf); Large Platelets SLIGHT; Lymphocytes 12 % (21-51); MDiff Complete? YES; Mean Corpuscular HGB CONC 31.6 g/dL (32.0-36.0); Mean Corpuscular Hemoglobin 30.7 pg (27.0-31.0); Mean Corpuscular Volume 97.4 fl (78.0-98.0); Metamyelocyte 2 % (0-0); Monocytes 5 % (0-10); Neutrophil 48 % (42-75); Platelet Count 342 10x3/uL (130-400); Platelet Morphology Comment Appears Adequate; Polychromasia SLIGHT = 2-3 cells (100X) (0-2/hpf); RBC Distribution Width 18.5 % (11.5-14.5); Red Blood Cell (RBC) Count 2.73 mill/uL (4.20-5.40); Target Cells SLIGHT = 2-5 cells (100X) (0-1/hpf); White Blood Cell (WBC) Count 6.1 10x3/uL (4.8-10.8)
[2021-12-30] MEDS: Propofol 1,000 MG/100 ML VIAL IV PRN ×2 (06:32→23:48)
[2021-12-30] MEDS: Metoclopramide 10 MG/10 ML UDCUP PER TUBE SCH ×3 (06:32→21:41)
[2021-12-30] MEDS: methylPREDNISolone Sod Succ 40 MG VIAL IVP SCH (08:14)
[2021-12-30] MEDS: Scopolamine 1.5 mg/72 hour Patch TD SCH (08:16)
[2021-12-30] MEDS: Piperacillin/Tazobactam 3.375 GM in Sodium Chloride 0.9% 100 ML IVPB SCH ×2 (08:18→21:40)
[2021-12-30] MEDS: Saccharomyces boulardii 250 MG CAP PO SCH (08:22)
[2021-12-30] MEDS: Amlodipine 5 MG TAB PO SCH (08:22)
[2021-12-30] MEDS: Carvedilol 25 MG TAB PO SCH ×2 (08:23→17:07)
[2021-12-30] MEDS: EPOETIN ALFA-EPBX (ESRD) 10,000 UNIT/ML VIAL SC SCH (08:49)
[2021-12-30] MEDS: Lansoprazole 15 MG/5 ML (BATCHED)UDCUP PER TUBE SCH (09:01)
[2021-12-30] MEDS: Acetaminophen 650 MG/20.3 ML UDCUP PER TUBE SCH ×4 (09:01→21:41)
[2021-12-30] MEDS: Tacrolimus 1 MG CAP PO SCH ×2 (09:02→21:41)
[2021-12-30] MEDS ORDERED: Heparin 10,000 UNITS/ 10 ML VIAL ONE (13:55)
[2021-12-30] MEDS: traMADol HCl 50 MG TAB PER TUBE PRN (23:40)
[2021-12-31] MEDS: HumaLOG 300 UNITS/3 ML VIAL SC PRN ×4 (00:57→17:36)
[2021-12-31] MEDS: Acetaminophen 650 MG/20.3 ML UDCUP PER TUBE SCH ×6 (01:35→21:27)
[2021-12-31] MEDS: Metoclopramide 10 MG/10 ML UDCUP PER TUBE SCH ×3 (05:12→21:28)
[2021-12-31 05:45] LABS: ALT (SGPT) Less than 7 U/L (8-55); AST (SGOT) 14 U/L (5-34); Alkaline Phosphatase 105 U/L (40-110); Anion Gap 16 mmol/L (10-20); BUN (Urea Nitrogen) 48 mg/dL (9.8-20.1); Bilirubin, Total 0.8 mg/dL (0.2-1.2); Calc. Creatinine Clearance 30 mL/min (70-130); Calcium 8.6 mg/dL (7.8-10.44); Carbon Dioxide 25 mmol/L (23-31); Chloride 98 mmol/L (98-107); Estimated GFR 38; Globulin 2.9 g/dL (2.4-3.5); Glucose 165 mg/dL (80-115); Potassium 3.3 mmol/L (3.5-5.1); Protein, Total 5.9 g/dL (5.8-8.1); Sodium 136 mmol/L (136-145)
[2021-12-31 06:03] LABS: Band 37 % (5-11); Hemoglobin 8.2 g/dL (12.0-16.0); Hypochromia SLIGHT = 6-15 cells (100X) (0-5/hpf); Lymphocytes 10 % (21-51); MDiff Complete? YES; Mean Corpuscular HGB CONC 31.1 g/dL (32.0-36.0); Mean Corpuscular Hemoglobin 30.4 pg (27.0-31.0); Mean Corpuscular Volume 97.6 fl (78.0-98.0); Mean Platelet Volume 8.9 fL (7.4-10.4); Neutrophil 52 % (42-75); Platelet Count 371 10x3/uL (130-400); RBC Distribution Width 18.7 % (11.5-14.5); Reactive Lymphocytes 1 % (0-10); Red Blood Cell (RBC) Count 2.68 mill/uL (4.20-5.40); White Blood Cell (WBC) Count 6.5 10x3/uL (4.8-10.8)
[2021-12-31] MEDS: Carvedilol 25 MG TAB PO SCH ×2 (08:28→17:20)
[2021-12-31] MEDS: Amlodipine 5 MG TAB PO SCH (08:28)
[2021-12-31] MEDS: Piperacillin/Tazobactam 3.375 GM in Sodium Chloride 0.9% 100 ML IVPB SCH ×2 (08:28→20:19)
[2021-12-31] MEDS: Lansoprazole 15 MG/5 ML (BATCHED)UDCUP PER TUBE SCH (08:30)
[2021-12-31] MEDS: Saccharomyces boulardii 250 MG CAP PO SCH (08:31)
[2021-12-31] MEDS: methylPREDNISolone Sod Succ 40 MG VIAL IVP SCH (08:31)
[2021-12-31] MEDS: Tacrolimus 1 MG CAP PO SCH ×2 (10:04→21:28)
[2021-12-31] MEDS: Propofol 1,000 MG/100 ML VIAL IV PRN (15:44)
[2022-01-01] MEDS: Acetaminophen 650 MG/20.3 ML UDCUP PER TUBE SCH ×6 (01:46→21:13)
[2022-01-01 04:37] LABS: ALT (SGPT) 9 U/L (8-55); AST (SGOT) 14 U/L (5-34); Albumin 2.8 g/dL (3.4-4.8); Alkaline Phosphatase 103 U/L (40-110); Anion Gap 17 mmol/L (10-20); BUN (Urea Nitrogen) 76 mg/dL (9.8-20.1); Bilirubin, Total 0.7 mg/dL (0.2-1.2); Calc. Creatinine Clearance 24 mL/min (70-130); Calcium 8.5 mg/dL (7.8-10.44); Carbon Dioxide 24 mmol/L (23-31); Chloride 95 mmol/L (98-107); Estimated GFR 30; Globulin 2.6 g/dL (2.4-3.5); Glucose 203 mg/dL (80-115); Potassium 3.6 mmol/L (3.5-5.1); Protein, Total 5.4 g/dL (5.8-8.1); Sodium 132 mmol/L (136-145)
[2022-01-01] MEDS: Propofol 1,000 MG/100 ML VIAL IV PRN (04:53)
[2022-01-01 04:57] LABS: Anisocytosis SLIGHT = 6-15 cells (100X) (0-5/hpf); Band 19 % (5-11); Hemoglobin 7.7 g/dL (12.0-16.0); Hypochromia SLIGHT = 6-15 cells (100X) (0-5/hpf); Large Platelets SLIGHT; Lymphocytes 11 % (21-51); MDiff Complete? YES; Mean Corpuscular HGB CONC 31.2 g/dL (32.0-36.0); Mean Corpuscular Hemoglobin 30.6 pg (27.0-31.0); Mean Corpuscular Volume 97.8 fl (78.0-98.0); Mean Platelet Volume 8.9 fL (7.4-10.4); Metamyelocyte 2 % (0-0); Monocytes 3 % (0-10); Myelocyte 1 % (0-0); Neutrophil 64 % (42-75); Platelet Count 394 10x3/uL (130-400); Platelet Morphology Comment Appears Adequate; Polychromasia SLIGHT = 2-3 cells (100X) (0-2/hpf); RBC Distribution Width 18.6 % (11.5-14.5); Red Blood Cell (RBC) Count 2.54 mill/uL (4.20-5.40); Target Cells SLIGHT = 2-5 cells (100X) (0-1/hpf); White Blood Cell (WBC) Count 8.2 10x3/uL (4.8-10.8)
[2022-01-01] MEDS: Metoclopramide 10 MG/10 ML UDCUP PER TUBE SCH ×3 (05:09→19:51)
[2022-01-01] MEDS: HumaLOG 300 UNITS/3 ML VIAL SC PRN ×2 (06:42→12:46)
[2022-01-01] MEDS: Piperacillin/Tazobactam 3.375 GM in Sodium Chloride 0.9% 100 ML IVPB SCH ×2 (08:16→21:12)
[2022-01-01] MEDS: Carvedilol 25 MG TAB PO SCH ×2 (08:16→17:10)
[2022-01-01] MEDS: Tacrolimus 1 MG CAP PO SCH ×2 (08:26→21:13)
[2022-01-01] MEDS: Amlodipine 5 MG TAB PO SCH (08:27)
[2022-01-01] MEDS: Lansoprazole 15 MG/5 ML (BATCHED)UDCUP PER TUBE SCH (08:27)
[2022-01-01] MEDS: Saccharomyces boulardii 250 MG CAP PO SCH (08:27)
[2022-01-01] MEDS: methylPREDNISolone Sod Succ 40 MG VIAL IVP SCH (08:29)
[2022-01-01] MEDS: Heparin 5,000 UNITS/ML VIAL SC SCH (21:13)
[2022-01-02] MEDS: HumaLOG 300 UNITS/3 ML VIAL SC PRN ×3 (00:43→18:18)
[2022-01-02] MEDS: Acetaminophen 650 MG/20.3 ML UDCUP PER TUBE SCH ×6 (00:46→20:43)
[2022-01-02] MEDS: traMADol HCl 50 MG TAB PER TUBE PRN (03:39)
[2022-01-02 04:10] LABS: Band 18 % (5-11); Hemoglobin 8.3 g/dL (12.0-16.0); Lymphocytes 14 % (21-51); MDiff Complete? YES; Mean Corpuscular HGB CONC 30.9 g/dL (32.0-36.0); Mean Corpuscular Volume 97.2 fl (78.0-98.0); Mean Platelet Volume 8.5 fL (7.4-10.4); Monocytes 4 % (0-10); Neutrophil 62 % (42-75); Platelet Count 450 10x3/uL (130-400); Platelet Morphology Comment Appears Increased; RBC Distribution Width 18.4 % (11.5-14.5); RBC Morphology Normal; Reactive Lymphocytes 2 % (0-10); Red Blood Cell (RBC) Count 2.76 mill/uL (4.20-5.40); White Blood Cell (WBC) Count 9.3 10x3/uL (4.8-10.8)
[2022-01-02 04:12] LABS: ALT (SGPT) 10 U/L (8-55); AST (SGOT) 16 U/L (5-34); Albumin 2.7 g/dL (3.4-4.8); Alkaline Phosphatase 110 U/L (40-110); Anion Gap 20 mmol/L (10-20); BUN (Urea Nitrogen) 104 mg/dL (9.8-20.1); Bilirubin, Total 0.7 mg/dL (0.2-1.2); Calc. Creatinine Clearance 22 mL/min (70-130); Calcium 8.5 mg/dL (7.8-10.44); Carbon Dioxide 23 mmol/L (23-31); Chloride 95 mmol/L (98-107); Estimated GFR 26; Globulin 2.8 g/dL (2.4-3.5); Glucose 168 mg/dL (80-115); Potassium 3.7 mmol/L (3.5-5.1); Protein, Total 5.5 g/dL (5.8-8.1); Sodium 134 mmol/L (136-145)
[2022-01-02] MEDS: Metoclopramide 10 MG/10 ML UDCUP PER TUBE SCH ×3 (04:19→20:42)
[2022-01-02] MEDS: EPOETIN ALFA-EPBX (ESRD) 10,000 UNIT/ML VIAL SC SCH (08:08)
[2022-01-02] MEDS: Lansoprazole 15 MG/5 ML (BATCHED)UDCUP PER TUBE SCH (08:09)
[2022-01-02] MEDS: Piperacillin/Tazobactam 3.375 GM in Sodium Chloride 0.9% 100 ML IVPB SCH ×2 (08:10→20:42)
[2022-01-02] MEDS: methylPREDNISolone Sod Succ 40 MG VIAL IVP SCH (08:10)
[2022-01-02] MEDS: Tacrolimus 1 MG CAP PO SCH ×2 (08:10→20:42)
[2022-01-02] MEDS: Amlodipine 5 MG TAB PO SCH (08:13)
[2022-01-02] MEDS: Saccharomyces boulardii 250 MG CAP PO SCH (08:13)
[2022-01-02] MEDS: Carvedilol 25 MG TAB PO SCH ×2 (08:13→16:25)
[2022-01-02] MEDS: Heparin 5,000 UNITS/ML VIAL SC SCH ×2 (08:13→20:42)
[2022-01-02] MEDS: Scopolamine 1.5 mg/72 hour Patch TD SCH (08:14)
[2022-01-02] MEDS: Nystatin Cream 30 GM TUBE TOP SCH (20:42)
[2022-01-02 23:47] LABS: Anion Gap 18 mmol/L (10-20); BUN (Urea Nitrogen) 69 mg/dL (9.8-20.1); Calc. Creatinine Clearance 31 mL/min (70-130); Calcium 8.3 mg/dL (7.8-10.44); Carbon Dioxide 24 mmol/L (23-31); Chloride 96 mmol/L (98-107); Estimated GFR 38; Glucose 174 mg/dL (80-115); Potassium 3.2 mmol/L (3.5-5.1); Sodium 135 mmol/L (136-145)
[2022-01-03] MEDS ORDERED: Potassium Bicarbonate/Cit Ac 20 MEQ TAB PER TUBE SCH (00:15)
[2022-01-03] MEDS: Acetaminophen 650 MG/20.3 ML UDCUP PER TUBE SCH ×6 (01:00→21:21)
[2022-01-03] MEDS: Metoclopramide 10 MG/10 ML UDCUP PER TUBE SCH ×3 (05:00→21:21)
[2022-01-03 05:40] LABS: ALT (SGPT) 14 U/L (8-55); AST (SGOT) 34 U/L (5-34); Albumin 2.8 g/dL (3.4-4.8); Alkaline Phosphatase 133 U/L (40-110); Anion Gap 19 mmol/L (10-20); BUN (Urea Nitrogen) 70 mg/dL (9.8-20.1); Bilirubin, Total 0.7 mg/dL (0.2-1.2); Calc. Creatinine Clearance 30 mL/min (70-130); Calcium 8.8 mg/dL (7.8-10.44); Carbon Dioxide 23 mmol/L (23-31); Chloride 96 mmol/L (98-107); Estimated GFR 37; Globulin 3.4 g/dL (2.4-3.5); Glucose 166 mg/dL (80-115); Potassium 4.2 mmol/L (3.5-5.1); Protein, Total 6.2 g/dL (5.8-8.1); Sodium 134 mmol/L (136-145)
[2022-01-03 05:56] LABS: Anisocytosis MODERATE=16-30 cells (100X) (0-5/hpf); Band 17 % (5-11); Eosinophils 2 % (0-10); Hemoglobin 9.4 g/dL (12.0-16.0); Large Platelets SLIGHT; Lymphocytes 11 % (21-51); MDiff Complete? YES; Mean Corpuscular HGB CONC 32.9 g/dL (32.0-36.0); Mean Corpuscular Hemoglobin 31.8 pg (27.0-31.0); Mean Corpuscular Volume 96.7 fl (78.0-98.0); Monocytes 4 % (0-10); Neutrophil 66 % (42-75); Platelet Count 513 10x3/uL (130-400); Platelet Morphology Comment Appears Increased; RBC Distribution Width 19.1 % (11.5-14.5); Red Blood Cell (RBC) Count 2.94 mill/uL (4.20-5.40); Target Cells SLIGHT = 2-5 cells (100X) (0-1/hpf); White Blood Cell (WBC) Count 10.7 10x3/uL (4.8-10.8)
[2022-01-03] MEDS ORDERED: hydrALAZINE 20 MG/ML VIAL SLOW IVP PRN (08:48)
[2022-01-03] MEDS: Piperacillin/Tazobactam 3.375 GM in Sodium Chloride 0.9% 100 ML IVPB SCH ×2 (09:29→21:21)
[2022-01-03] MEDS: Saccharomyces boulardii 250 MG CAP PO SCH (09:30)
[2022-01-03] MEDS: Heparin 5,000 UNITS/ML VIAL SC SCH ×2 (09:30→21:21)
[2022-01-03] MEDS: Tacrolimus 1 MG CAP PO SCH ×2 (09:31→21:21)
[2022-01-03] MEDS: Amlodipine 5 MG TAB PO SCH (09:31)
[2022-01-03] MEDS: methylPREDNISolone Sod Succ 40 MG VIAL IVP SCH (09:32)
[2022-01-03] MEDS: Nystatin Cream 30 GM TUBE TOP SCH ×3 (09:32→21:33)
[2022-01-03] MEDS: Carvedilol 25 MG TAB PO SCH ×2 (09:32→17:52)
[2022-01-03] MEDS: Lansoprazole 15 MG/5 ML (BATCHED)UDCUP PER TUBE SCH (12:44)
[2022-01-03] MEDS: HumaLOG 300 UNITS/3 ML VIAL SC PRN ×3 (12:46→21:21)
[2022-01-04] MEDS: Acetaminophen 650 MG/20.3 ML UDCUP PER TUBE SCH ×6 (01:01→20:20)
[2022-01-04 04:59] LABS: ALT (SGPT) 14 U/L (8-55); AST (SGOT) 28 U/L (5-34); Albumin 2.4 g/dL (3.4-4.8); Alkaline Phosphatase 128 U/L (40-110); Anion Gap 20 mmol/L (10-20); BUN (Urea Nitrogen) 84 mg/dL (9.8-20.1); Bilirubin, Total 0.5 mg/dL (0.2-1.2); Calc. Creatinine Clearance 28 mL/min (70-130); Calcium 7.9 mg/dL (7.8-10.44); Carbon Dioxide 21 mmol/L (23-31); Chloride 96 mmol/L (98-107); Estimated GFR 33; Globulin 2.8 g/dL (2.4-3.5); Glucose 154 mg/dL (80-115); Potassium 3.7 mmol/L (3.5-5.1); Protein, Total 5.2 g/dL (5.8-8.1); Sodium 133 mmol/L (136-145)
[2022-01-04 05:14] LABS: Anisocytosis SLIGHT = 6-15 cells (100X) (0-5/hpf); Band 13 % (5-11); Hemoglobin 8.1 g/dL (12.0-16.0); Large Platelets SLIGHT; Lymphocytes 14 % (21-51); MDiff Complete? YES; Mean Corpuscular Hemoglobin 30.8 pg (27.0-31.0); Mean Corpuscular Volume 96.1 fl (78.0-98.0); Mean Platelet Volume 8.8 fL (7.4-10.4); Metamyelocyte 1 % (0-0); Monocytes 2 % (0-10); Myelocyte 1 % (0-0); Neutrophil 69 % (42-75); Platelet Count 456 10x3/uL (130-400); Platelet Morphology Comment Appears Increased; RBC Distribution Width 18.6 % (11.5-14.5); Red Blood Cell (RBC) Count 2.63 mill/uL (4.20-5.40); White Blood Cell (WBC) Count 7.7 10x3/uL (4.8-10.8)
[2022-01-04] MEDS: Metoclopramide 10 MG/10 ML UDCUP PER TUBE SCH ×3 (05:23→21:29)
[2022-01-04] MEDS: HumaLOG 300 UNITS/3 ML VIAL SC PRN ×3 (05:24→16:49)
[2022-01-04] MEDS: Piperacillin/Tazobactam 3.375 GM in Sodium Chloride 0.9% 100 ML IVPB SCH ×2 (09:00→20:20)
[2022-01-04] MEDS: Carvedilol 25 MG TAB PO SCH ×2 (09:00→18:49)
[2022-01-04] MEDS: Heparin 5,000 UNITS/ML VIAL SC SCH ×2 (09:02→20:22)
[2022-01-04] MEDS: Tacrolimus 1 MG CAP PO SCH ×2 (09:02→21:28)
[2022-01-04] MEDS: Saccharomyces boulardii 250 MG CAP PO SCH (09:02)
[2022-01-04] MEDS: Amlodipine 5 MG TAB PO SCH (09:02)
[2022-01-04] MEDS: methylPREDNISolone Sod Succ 40 MG VIAL IVP SCH (09:02)
[2022-01-04] MEDS: Lansoprazole 15 MG/5 ML (BATCHED)UDCUP PER TUBE SCH (09:03)
[2022-01-04] MEDS: Nystatin Cream 30 GM TUBE TOP SCH ×3 (09:04→20:21)
[2022-01-04] MEDS: EPOETIN ALFA-EPBX (ESRD) 10,000 UNIT/ML VIAL SC SCH (09:48)
[2022-01-04] MEDS ORDERED: Albumin 25% 100 ML ONE (11:20)
[2022-01-04] MEDS ORDERED: Albumin 25% 25 GM/100 ML BOT IVPB SCH (11:30)
[2022-01-05] MEDS: Acetaminophen 650 MG/20.3 ML UDCUP PER TUBE SCH ×6 (00:36→21:18)
[2022-01-05] MEDS: HumaLOG 300 UNITS/3 ML VIAL SC PRN ×3 (03:41→16:31)
[2022-01-05 04:24] LABS: ALT (SGPT) 15 U/L (8-55); AST (SGOT) 21 U/L (5-34); Albumin 2.8 g/dL (3.4-4.8); Alkaline Phosphatase 139 U/L (40-110); Anion Gap 19 mmol/L (10-20); BUN (Urea Nitrogen) 67 mg/dL (9.8-20.1); Bilirubin, Total 0.5 mg/dL (0.2-1.2); Calc. Creatinine Clearance 35 mL/min (70-130); Calcium 8.2 mg/dL (7.8-10.44); Carbon Dioxide 25 mmol/L (23-31); Chloride 95 mmol/L (98-107); Estimated GFR 45; Globulin 2.5 g/dL (2.4-3.5); Glucose 188 mg/dL (80-115); Magnesium 1.9 mg/dL (1.6-2.6); Potassium 3.2 mmol/L (3.5-5.1); Protein, Total 5.3 g/dL (5.8-8.1); Sodium 136 mmol/L (136-145)
[2022-01-05] MEDS: Metoclopramide 10 MG/10 ML UDCUP PER TUBE SCH ×3 (05:02→21:19)
[2022-01-05 05:07] LABS: Anisocytosis SLIGHT = 6-15 cells (100X) (0-5/hpf); Band 12 % (5-11); Eosinophils 1 % (0-10); Hemoglobin 7.9 g/dL (12.0-16.0); Lymphocytes 8 % (21-51); MDiff Complete? YES; Mean Corpuscular Hemoglobin 30.9 pg (27.0-31.0); Mean Corpuscular Volume 96.4 fl (78.0-98.0); Mean Platelet Volume 8.7 fL (7.4-10.4); Metamyelocyte 2 % (0-0); Monocytes 1 % (0-10); Neutrophil 76 % (42-75); Nucleated RBC 1 % (0); Platelet Count 472 10x3/uL (130-400); Platelet Morphology Comment Appears Increased; RBC Distribution Width 19.3 % (11.5-14.5); Red Blood Cell (RBC) Count 2.57 mill/uL (4.20-5.40); Stomatocytes SLIGHT = 2-5 cells (100X) (0-1/hpf); White Blood Cell (WBC) Count 8.9 10x3/uL (4.8-10.8)
[2022-01-05] MEDS: Scopolamine 1.5 mg/72 hour Patch TD SCH (07:54)
[2022-01-05] MEDS: Carvedilol 25 MG TAB PO SCH ×2 (07:55→17:36)
[2022-01-05] MEDS: Piperacillin/Tazobactam 3.375 GM in Sodium Chloride 0.9% 100 ML IVPB SCH ×2 (07:55→21:18)
[2022-01-05] MEDS ORDERED: Potassium Bicarbonate/Cit Ac 20 MEQ TAB PER TUBE SCH (08:00)
[2022-01-05] MEDS: Tacrolimus 1 MG CAP PO SCH ×2 (08:40→21:26)
[2022-01-05] MEDS: Saccharomyces boulardii 250 MG CAP PO SCH (08:41)
[2022-01-05] MEDS: Amlodipine 5 MG TAB PO SCH (08:41)
[2022-01-05] MEDS: methylPREDNISolone Sod Succ 40 MG VIAL IVP SCH (08:41)
[2022-01-05] MEDS: Lansoprazole 15 MG/5 ML (BATCHED)UDCUP PER TUBE SCH (08:41)
[2022-01-05] MEDS: Heparin 5,000 UNITS/ML VIAL SC SCH ×2 (08:42→21:21)
[2022-01-05] MEDS: Nystatin Cream 30 GM TUBE TOP SCH ×3 (10:24→21:21)
[2022-01-05] MEDS: Ondansetron PF 4 MG/2 ML Vial IVP PRN (11:06)
[2022-01-05] MEDS ORDERED: Xylocaine 1% w/ Epi 1:100K 10 ML VIAL ONE (20:07)
[2022-01-06] MEDS: Acetaminophen 650 MG/20.3 ML UDCUP PER TUBE SCH ×6 (01:29→20:21)
[2022-01-06] MEDS: Metoclopramide 10 MG/10 ML UDCUP PER TUBE SCH ×3 (05:17→21:14)
[2022-01-06 05:26] LABS: ALT (SGPT) 16 U/L (8-55); AST (SGOT) 33 U/L (5-34); Albumin 2.6 g/dL (3.4-4.8); Alkaline Phosphatase 131 U/L (40-110); Anion Gap 19 mmol/L (10-20); BUN (Urea Nitrogen) 86 mg/dL (9.8-20.1); Bilirubin, Total 0.6 mg/dL (0.2-1.2); Calc. Creatinine Clearance 28 mL/min (70-130); Calcium 8.4 mg/dL (7.8-10.44); Carbon Dioxide 24 mmol/L (23-31); Chloride 95 mmol/L (98-107); Estimated GFR 36; Globulin 2.9 g/dL (2.4-3.5); Glucose 118 mg/dL (80-115); Potassium 3.5 mmol/L (3.5-5.1); Protein, Total 5.5 g/dL (5.8-8.1); Sodium 134 mmol/L (136-145)
[2022-01-06 06:05] LABS: Anisocytosis SLIGHT = 6-15 cells (100X) (0-5/hpf); Band 5 % (5-11); Eosinophils 1 % (0-10); Hemoglobin 8.4 g/dL (12.0-16.0); Hypochromia SLIGHT = 6-15 cells (100X) (0-5/hpf); Lymphocytes 6 % (21-51); MDiff Complete? YES; Mean Corpuscular HGB CONC 31.8 g/dL (32.0-36.0); Mean Corpuscular Hemoglobin 30.6 pg (27.0-31.0); Monocytes 6 % (0-10); Myelocyte 2 % (0-0); Neutrophil 80 % (42-75); Nucleated RBC 1 % (0); Platelet Count 471 10x3/uL (130-400); Platelet Morphology Comment Appears Increased; Polychromasia SLIGHT = 2-3 cells (100X) (0-2/hpf); RBC Distribution Width 19.5 % (11.5-14.5); Red Blood Cell (RBC) Count 2.74 mill/uL (4.20-5.40); White Blood Cell (WBC) Count 12.3 10x3/uL (4.8-10.8)
[2022-01-06] MEDS ORDERED: Vecuronium 10 MG VIAL IVP SCH (07:30)
[2022-01-06] MEDS ORDERED: Lidocaine 1%/Epinephrine 1:100K 10 ML VIAL IJ SCH (07:30)
[2022-01-06] MEDS ORDERED: Midazolam HCl 2 mg/2 ml Vial IVP SCH (07:30)
[2022-01-06] MEDS ORDERED: Lidocaine 1% w/Epinephrine 1:100K 20 ML VIAL FS SCH (07:30)
[2022-01-06] MEDS: Lansoprazole 15 MG/5 ML (BATCHED)UDCUP PER TUBE SCH (08:26)
[2022-01-06] MEDS: methylPREDNISolone Sod Succ 40 MG VIAL IVP SCH (08:26)
[2022-01-06] MEDS: Saccharomyces boulardii 250 MG CAP PO SCH (08:26)
[2022-01-06] MEDS: Tacrolimus 1 MG CAP PO SCH ×2 (08:26→20:22)
[2022-01-06] MEDS: Carvedilol 25 MG TAB PO SCH ×2 (08:26→16:45)
[2022-01-06] MEDS: Amlodipine 5 MG TAB PO SCH (08:27)
[2022-01-06] MEDS: Piperacillin/Tazobactam 3.375 GM in Sodium Chloride 0.9% 100 ML IVPB SCH ×2 (08:27→20:21)
[2022-01-06] MEDS: Nystatin Cream 30 GM TUBE TOP SCH ×3 (08:43→20:51)
[2022-01-06] MEDS ORDERED: Lisinopril 10 MG TAB PER TUBE SCH ×2 (09:00→13:00)
[2022-01-06] MEDS: FENTANYL 50 MCG/ML 1 ML VIAL SLOW IVP SCH ×2 (09:10→09:22)
[2022-01-06] MEDS: EPOETIN ALFA-EPBX (ESRD) 10,000 UNIT/ML VIAL SC SCH (09:46)
[2022-01-06] MEDS ORDERED: Potassium Chloride 20 MEQ TAB PER TUBE SCH (10:30)
[2022-01-06] MEDS: HumaLOG 300 UNITS/3 ML VIAL SC PRN ×2 (11:27→21:18)
[2022-01-06] MEDS: Heparin 5,000 UNITS/ML VIAL SC SCH ×2 (11:36→20:21)
[2022-01-06] MEDS: traMADol HCl 50 MG TAB PER TUBE PRN (13:17)
[2022-01-06] MEDS: Albumin 25% 25 GM/100 ML BOT IVPB SCH ×2 (14:45→16:05)
[2022-01-06] MEDS: Albumin 25% 100 ML ONE ×2 (14:51→19:43)
[2022-01-06] MEDS ORDERED: Albumin 25% 100 ML ONE (16:03)
[2022-01-07] MEDS: Acetaminophen 650 MG/20.3 ML UDCUP PER TUBE SCH ×6 (00:58→20:37)
[2022-01-07 04:40] LABS: ALT (SGPT) 13 U/L (8-55); AST (SGOT) 19 U/L (5-34); Albumin 3.2 g/dL (3.4-4.8); Alkaline Phosphatase 117 U/L (40-110); Anion Gap 19 mmol/L (10-20); BUN (Urea Nitrogen) 51 mg/dL (9.8-20.1); Bilirubin, Total 0.8 mg/dL (0.2-1.2); Calc. Creatinine Clearance 37 mL/min (70-130); Calcium 8.7 mg/dL (7.8-10.44); Carbon Dioxide 25 mmol/L (23-31); Chloride 96 mmol/L (98-107); Estimated GFR 50; Globulin 2.4 g/dL (2.4-3.5); Glucose 148 mg/dL (80-115); Magnesium 1.8 mg/dL (1.6-2.6); Potassium 3.7 mmol/L (3.5-5.1); Protein, Total 5.6 g/dL (5.8-8.1); Sodium 136 mmol/L (136-145)
[2022-01-07 04:52] LABS: Anisocytosis SLIGHT = 6-15 cells (100X) (0-5/hpf); Band 23 % (5-11); Eosinophils 2 % (0-10); Hemoglobin 7.7 g/dL (12.0-16.0); Lymphocytes 3 % (21-51); MDiff Complete? YES; Mean Corpuscular HGB CONC 32.3 g/dL (32.0-36.0); Mean Corpuscular Hemoglobin 31.2 pg (27.0-31.0); Mean Corpuscular Volume 96.7 fl (78.0-98.0); Mean Platelet Volume 8.7 fL (7.4-10.4); Monocytes 3 % (0-10); Neutrophil 69 % (42-75); Platelet Count 405 10x3/uL (130-400); Platelet Morphology Comment Appears Adequate; RBC Distribution Width 19.7 % (11.5-14.5); Red Blood Cell (RBC) Count 2.48 mill/uL (4.20-5.40); White Blood Cell (WBC) Count 13.5 10x3/uL (4.8-10.8)
[2022-01-07] MEDS: Metoclopramide 10 MG/10 ML UDCUP PER TUBE SCH ×3 (05:25→22:40)
[2022-01-07] MEDS: Saccharomyces boulardii 250 MG CAP PO SCH (10:13)
[2022-01-07] MEDS: Tacrolimus 1 MG CAP PO SCH ×2 (10:13→20:37)
[2022-01-07] MEDS: Carvedilol 25 MG TAB PO SCH ×2 (10:13→16:54)
[2022-01-07] MEDS: Lisinopril 10 MG TAB PER TUBE SCH (10:14)
[2022-01-07] MEDS: Amlodipine 5 MG TAB PO SCH (10:14)
[2022-01-07] MEDS: Lansoprazole 15 MG/5 ML (BATCHED)UDCUP PER TUBE SCH (10:16)
[2022-01-07] MEDS: Piperacillin/Tazobactam 3.375 GM in Sodium Chloride 0.9% 100 ML IVPB SCH ×2 (10:17→20:37)
[2022-01-07] MEDS: Heparin 5,000 UNITS/ML VIAL SC SCH ×2 (10:18→20:38)
[2022-01-07] MEDS: Nystatin Cream 30 GM TUBE TOP SCH ×3 (10:19→20:37)
[2022-01-07] MEDS: HumaLOG 300 UNITS/3 ML VIAL SC PRN ×2 (10:43→16:28)
[2022-01-08] MEDS: Acetaminophen 650 MG/20.3 ML UDCUP PER TUBE SCH ×6 (00:56→20:56)
[2022-01-08 04:57] LABS: #Lymphocytes 0.7 thou/uL (1.20-3.40); #Monocytes 0.4 thou/uL (0.11-0.59); #Neutrophils 10.1 thou/uL (1.40-6.50); %Basophils 0.1 % (0.0-1.0); %Eosinophils 0.3 % (0.0-10.0); %Lymphocytes 5.9 % (21.0-51.0); %Monocytes 3.5 % (0.0-10.0); %Neutrophils 90.2 % (42.0-75.0); Hemoglobin 7.3 g/dL (12.0-16.0); Mean Corpuscular HGB CONC 31.1 g/dL (32.0-36.0); Mean Corpuscular Hemoglobin 30.9 pg (27.0-31.0); Mean Corpuscular Volume 99.3 fl (78.0-98.0); Mean Platelet Volume 8.8 fL (7.4-10.4); Platelet Count 381 10x3/uL (130-400); RBC Distribution Width 20.4 % (11.5-14.5); Red Blood Cell (RBC) Count 2.36 mill/uL (4.20-5.40); White Blood Cell (WBC) Count 11.2 10x3/uL (4.8-10.8)
[2022-01-08 05:14] LABS: ALT (SGPT) 12 U/L (8-55); AST (SGOT) 22 U/L (5-34); Albumin 2.8 g/dL (3.4-4.8); Alkaline Phosphatase 132 U/L (40-110); Anion Gap 19 mmol/L (10-20); BUN (Urea Nitrogen) 75 mg/dL (9.8-20.1); Bilirubin, Total 0.9 mg/dL (0.2-1.2); Calc. Creatinine Clearance 26 mL/min (70-130); Calcium 8.7 mg/dL (7.8-10.44); Carbon Dioxide 23 mmol/L (23-31); Chloride 95 mmol/L (98-107); Estimated GFR 36; Globulin 2.5 g/dL (2.4-3.5); Glucose 138 mg/dL (80-115); Magnesium 1.7 mg/dL (1.6-2.6); Potassium 3.3 mmol/L (3.5-5.1); Protein, Total 5.3 g/dL (5.8-8.1); Sodium 134 mmol/L (136-145)
[2022-01-08] MEDS: Metoclopramide 10 MG/10 ML UDCUP PER TUBE SCH ×3 (05:18→22:31)
[2022-01-08] MEDS: Scopolamine 1.5 mg/72 hour Patch TD SCH (06:23)
[2022-01-08] MEDS ORDERED: Potassium Chloride 20 MEQ TAB PO SCH (07:15)
[2022-01-08] MEDS: Lansoprazole 15 MG/5 ML (BATCHED)UDCUP PER TUBE SCH (08:15)
[2022-01-08] MEDS: Piperacillin/Tazobactam 3.375 GM in Sodium Chloride 0.9% 100 ML IVPB SCH (08:15)
[2022-01-08] MEDS: Tacrolimus 1 MG CAP PO SCH ×2 (08:16→20:57)
[2022-01-08] MEDS: Magnesium Oxide 400 MG TAB PO SCH (08:16)
[2022-01-08] MEDS: Saccharomyces boulardii 250 MG CAP PO SCH (08:16)
[2022-01-08] MEDS: Amlodipine 5 MG TAB PO SCH (08:17)
[2022-01-08] MEDS: Carvedilol 25 MG TAB PO SCH ×2 (08:17→16:24)
[2022-01-08] MEDS: Heparin 5,000 UNITS/ML VIAL SC SCH (08:18)
[2022-01-08 08:38] LABS: Phosphorus 1.8 mg/dL (2.3-4.7)
[2022-01-08] MEDS: Lisinopril 10 MG TAB PER TUBE SCH (08:45)
[2022-01-08] MEDS: Nystatin Cream 30 GM TUBE TOP SCH ×3 (08:46→20:57)
[2022-01-08] MEDS ORDERED: Lidocaine 2% PF 5 ML VIAL FS SCH (12:15)
[2022-01-08] MEDS: GUAIFENESIN SF SOLN 200 MG/10 ML UDCUP PER TUBE PRN (18:43)
[2022-01-08] MEDS: PHOS-NAK 1 PKT PACK PER TUBE SCH (20:57)
[2022-01-08] MEDS ORDERED: Meropenem 1 GM in Sodium Chloride 0.9% 100 ML IVPB SCH (21:45)
[2022-01-08] MEDS ORDERED: Fluconazole In NaCl,Iso-Osm 200 MG in Premix Bag 1 BAG IVPB SCH (22:00)
[2022-01-09] MEDS: Acetaminophen 650 MG/20.3 ML UDCUP PER TUBE SCH ×6 (00:46→21:24)
[2022-01-09 05:05] LABS: #Lymphocytes 0.6 thou/uL (1.20-3.40); #Monocytes 0.4 thou/uL (0.11-0.59); #Neutrophils 8.1 thou/uL (1.40-6.50); %Eosinophils 0.4 % (0.0-10.0); %Lymphocytes 6.2 % (21.0-51.0); %Monocytes 4.7 % (0.0-10.0); %Neutrophils 88.7 % (42.0-75.0); Hemoglobin 7.5 g/dL (12.0-16.0); Mean Corpuscular Hemoglobin 31.8 pg (27.0-31.0); Mean Corpuscular Volume 99.3 fl (78.0-98.0); Platelet Count 361 10x3/uL (130-400); RBC Distribution Width 20.2 % (11.5-14.5); Red Blood Cell (RBC) Count 2.35 mill/uL (4.20-5.40); White Blood Cell (WBC) Count 9.1 10x3/uL (4.8-10.8)
[2022-01-09] MEDS: Metoclopramide 10 MG/10 ML UDCUP PER TUBE SCH ×3 (05:23→21:25)
[2022-01-09] MEDS: HumaLOG 300 UNITS/3 ML VIAL SC PRN ×3 (05:23→22:01)
[2022-01-09 05:25] LABS: ALT (SGPT) 13 U/L (8-55); AST (SGOT) 23 U/L (5-34); Albumin 2.6 g/dL (3.4-4.8); Alkaline Phosphatase 130 U/L (40-110); Anion Gap 20 mmol/L (10-20); BUN (Urea Nitrogen) 97 mg/dL (9.8-20.1); Bilirubin, Total 0.4 mg/dL (0.2-1.2); Calc. Creatinine Clearance 22 mL/min (70-130); Calcium 8.5 mg/dL (7.8-10.44); Carbon Dioxide 22 mmol/L (23-31); Chloride 97 mmol/L (98-107); Estimated GFR 31; Globulin 2.5 g/dL (2.4-3.5); Glucose 177 mg/dL (80-115); Magnesium 1.8 mg/dL (1.6-2.6); Potassium 3.7 mmol/L (3.5-5.1); Protein, Total 5.1 g/dL (5.8-8.1); Sodium 135 mmol/L (136-145)
[2022-01-09 05:31] LABS: Phosphorus 2.7 mg/dL (2.3-4.7)
[2022-01-09] MEDS: Meropenem 500 MG in Sodium Chloride 0.9% 100 ML IVPB SCH ×2 (05:59→17:55)
[2022-01-09] MEDS: GUAIFENESIN SF SOLN 200 MG/10 ML UDCUP PER TUBE PRN (06:48)
[2022-01-09] MEDS: Amlodipine 5 MG TAB PO SCH ×2 (08:15→14:11)
[2022-01-09] MEDS: Magnesium Oxide 400 MG TAB PO SCH ×2 (08:15→12:28)
[2022-01-09] MEDS: Saccharomyces boulardii 250 MG CAP PO SCH ×2 (08:15→12:29)
[2022-01-09] MEDS: Carvedilol 25 MG TAB PO SCH ×3 (08:15→17:25)
[2022-01-09] MEDS: Tacrolimus 1 MG CAP PO SCH ×3 (08:15→21:25)
[2022-01-09] MEDS: Lansoprazole 15 MG/5 ML (BATCHED)UDCUP PER TUBE SCH (08:15)
[2022-01-09] MEDS: Potassium Chloride 20 MEQ TAB PO SCH ×2 (08:15→12:28)
[2022-01-09] MEDS: Nystatin Cream 30 GM TUBE TOP SCH ×3 (08:16→21:25)
[2022-01-09] MEDS: PHOS-NAK 1 PKT PACK PER TUBE SCH ×2 (08:16→14:18)
[2022-01-09] MEDS: Lisinopril 10 MG TAB PER TUBE SCH ×2 (08:16→12:29)
[2022-01-09] MEDS: EPOETIN ALFA-EPBX (ESRD) 10,000 UNIT/ML VIAL SC SCH (09:05)
[2022-01-09] MEDS: Heparin 5,000 UNITS/ML VIAL SC SCH ×2 (10:57→21:27)
[2022-01-10] MEDS: Acetaminophen 650 MG/20.3 ML UDCUP PER TUBE SCH ×7 (00:29→20:48)
[2022-01-10 04:54] LABS: Phosphorus 1.5 mg/dL (2.3-4.7)
[2022-01-10 05:02] LABS: ALT (SGPT) 14 U/L (8-55); AST (SGOT) 22 U/L (5-34); Albumin 2.7 g/dL (3.4-4.8); Alkaline Phosphatase 177 U/L (40-110); Anion Gap 16 mmol/L (10-20); BUN (Urea Nitrogen) 68 mg/dL (9.8-20.1); Bilirubin, Total 0.4 mg/dL (0.2-1.2); Calc. Creatinine Clearance 30 mL/min (70-130); Calcium 8.5 mg/dL (7.8-10.44); Carbon Dioxide 25 mmol/L (23-31); Chloride 99 mmol/L (98-107); Estimated GFR 45; Globulin 2.4 g/dL (2.4-3.5); Glucose 116 mg/dL (80-115); Magnesium 1.8 mg/dL (1.6-2.6); Potassium 3.2 mmol/L (3.5-5.1); Protein, Total 5.1 g/dL (5.8-8.1); Sodium 137 mmol/L (136-145)
[2022-01-10] MEDS: Meropenem 500 MG in Sodium Chloride 0.9% 100 ML IVPB SCH (05:31)
[2022-01-10] MEDS: Metoclopramide 10 MG/10 ML UDCUP PER TUBE SCH ×2 (05:32→14:19)
[2022-01-10 05:35] LABS: Band 17 % (5-11); Hemoglobin 7.5 g/dL (12.0-16.0); Lymphocytes 6 % (21-51); MDiff Complete? YES; Mean Corpuscular HGB CONC 31.8 g/dL (32.0-36.0); Mean Corpuscular Hemoglobin 31.4 pg (27.0-31.0); Mean Corpuscular Volume 98.6 fl (78.0-98.0); Mean Platelet Volume 8.6 fL (7.4-10.4); Monocytes 1 % (0-10); Neutrophil 76 % (42-75); Platelet Count 384 10x3/uL (130-400); Platelet Morphology Comment Appears Adequate; RBC Distribution Width 20.6 % (11.5-14.5); White Blood Cell (WBC) Count 8.1 10x3/uL (4.8-10.8)
[2022-01-10] MEDS ORDERED: Potassium Phosphate 30 MMOL in Sodium Chloride 0.9% 250 ML 250 ML IVPB SCH (07:45)
[2022-01-10] MEDS: Lisinopril 10 MG TAB PER TUBE SCH (09:41)
[2022-01-10] MEDS: Tacrolimus 1 MG CAP PO SCH ×2 (09:41→20:12)
[2022-01-10] MEDS: Magnesium Oxide 400 MG TAB PO SCH (09:41)
[2022-01-10] MEDS: Heparin 5,000 UNITS/ML VIAL SC SCH ×2 (09:41→20:10)
[2022-01-10] MEDS: Potassium Chloride 20 MEQ TAB PO SCH (09:42)
[2022-01-10] MEDS: Saccharomyces boulardii 250 MG CAP PO SCH (09:42)
[2022-01-10] MEDS: Amlodipine 5 MG TAB PO SCH (09:42)
[2022-01-10] MEDS: Lansoprazole 15 MG/5 ML (BATCHED)UDCUP PER TUBE SCH (09:43)
[2022-01-10] MEDS: Carvedilol 25 MG TAB PO SCH ×2 (09:43→17:05)
[2022-01-10] MEDS: Nystatin Cream 30 GM TUBE TOP SCH ×3 (09:43→20:13)
[2022-01-10] MEDS ORDERED: Heparin 10,000 UNITS/ 10 ML VIAL ONE (14:51)
[2022-01-10] MEDS ORDERED: Bupivacaine/Epinephrine 0.25% 30 ML VIAL ONE (14:51)
[2022-01-10] MEDS ORDERED: Lidocaine 1% PF 5 ML VIAL ONE (14:51)
[2022-01-10] MEDS ORDERED: Midazolam HCl 2 mg/2 ml Vial ONE (14:57)
[2022-01-10] MEDS ORDERED: fentaNYL PF 100 MCG/2 ML SYRINGE ONE (14:58)
[2022-01-10] MEDS ORDERED: Promethazine HCl 25 MG/ML VIAL ONE (15:02)
[2022-01-10] MEDS ORDERED: CEFAZOLIN 2 GM in Sodium Chloride 0.9% 100 ML IVPB SCH (17:00)
[2022-01-10] MEDS: HYDROcodone/Acetaminophen 5/325 mg Tablet PO SCH (20:27)
[2022-01-11] MEDS: Metoclopramide 10 MG/10 ML UDCUP PER TUBE SCH ×4 (00:25→21:39)
[2022-01-11] MEDS: HYDROcodone/Acetaminophen 5/325 mg Tablet PO SCH ×4 (03:14→21:38)
[2022-01-11] MEDS: HumaLOG 300 UNITS/3 ML VIAL SC PRN ×2 (03:21→17:18)
[2022-01-11 04:34] LABS: ALT (SGPT) 11 U/L (8-55); AST (SGOT) 19 U/L (5-34); Albumin 2.6 g/dL (3.4-4.8); Alkaline Phosphatase 197 U/L (40-110); Anion Gap 21 mmol/L (10-20); BUN (Urea Nitrogen) 82 mg/dL (9.8-20.1); Bilirubin, Total 0.4 mg/dL (0.2-1.2); Calc. Creatinine Clearance 26 mL/min (70-130); Calcium 8.6 mg/dL (7.8-10.44); Carbon Dioxide 22 mmol/L (23-31); Chloride 99 mmol/L (98-107); Estimated GFR 37; Globulin 2.6 g/dL (2.4-3.5); Glucose 160 mg/dL (80-115); Potassium 4.4 mmol/L (3.5-5.1); Protein, Total 5.2 g/dL (5.8-8.1); Sodium 138 mmol/L (136-145)
[2022-01-11 06:25] LABS: Band 31 % (5-11); Hemoglobin 7.6 g/dL (12.0-16.0); Hypochromia SLIGHT = 6-15 cells (100X) (0-5/hpf); Lymphocytes 10 % (21-51); MDiff Complete? YES; Mean Corpuscular HGB CONC 31.6 g/dL (32.0-36.0); Mean Corpuscular Hemoglobin 31.1 pg (27.0-31.0); Mean Corpuscular Volume 98.3 fl (78.0-98.0); Mean Platelet Volume 8.6 fL (7.4-10.4); Monocytes 3 % (0-10); Neutrophil 56 % (42-75); Platelet Count 427 10x3/uL (130-400); Platelet Morphology Comment Appears Increased; Polychromasia SLIGHT = 2-3 cells (100X) (0-2/hpf); RBC Distribution Width 20.9 % (11.5-14.5); Red Blood Cell (RBC) Count 2.44 mill/uL (4.20-5.40); White Blood Cell (WBC) Count 8.9 10x3/uL (4.8-10.8)
[2022-01-11] MEDS: Scopolamine 1.5 mg/72 hour Patch TD SCH (08:12)
[2022-01-11] MEDS: Potassium Chloride 20 MEQ TAB PO SCH (08:14)
[2022-01-11] MEDS: Carvedilol 25 MG TAB PO SCH ×2 (08:14→17:55)
[2022-01-11] MEDS: Amlodipine 5 MG TAB PO SCH (09:27)
[2022-01-11] MEDS: Saccharomyces boulardii 250 MG CAP PO SCH (09:27)
[2022-01-11] MEDS: EPOETIN ALFA-EPBX (ESRD) 10,000 UNIT/ML VIAL SC SCH (09:28)
[2022-01-11] MEDS: Lansoprazole 15 MG/5 ML (BATCHED)UDCUP PER TUBE SCH (09:28)
[2022-01-11] MEDS: Magnesium Oxide 400 MG TAB PO SCH (09:29)
[2022-01-11] MEDS: Heparin 5,000 UNITS/ML VIAL SC SCH ×2 (09:29→20:39)
[2022-01-11] MEDS: Nystatin Cream 30 GM TUBE TOP SCH ×3 (09:30→20:40)
[2022-01-11] MEDS: Lisinopril 10 MG TAB PER TUBE SCH (09:31)
[2022-01-11] MEDS: Tacrolimus 1 MG CAP PO SCH ×2 (10:06→20:39)
[2022-01-11] MEDS: Meropenem 500 MG in Sodium Chloride 0.9% 100 ML IVPB SCH (18:26)
[2022-01-11] MEDS: GUAIFENESIN SF SOLN 200 MG/10 ML UDCUP PER TUBE PRN (23:46)
[2022-01-12] MEDS: HYDROcodone/Acetaminophen 5/325 mg Tablet PO SCH ×4 (03:45→20:57)
[2022-01-12 04:17] LABS: ALT (SGPT) 8 U/L (8-55); AST (SGOT) 23 U/L (5-34); Albumin 2.6 g/dL (3.4-4.8); Alkaline Phosphatase 228 U/L (40-110); Anion Gap 15 mmol/L (10-20); BUN (Urea Nitrogen) 54 mg/dL (9.8-20.1); Bilirubin, Total 0.5 mg/dL (0.2-1.2); Calc. Creatinine Clearance 33 mL/min (70-130); Calcium 8.1 mg/dL (7.8-10.44); Carbon Dioxide 27 mmol/L (23-31); Chloride 100 mmol/L (98-107); Estimated GFR 49; Globulin 2.2 g/dL (2.4-3.5); Glucose 159 mg/dL (80-115); Potassium 4.3 mmol/L (3.5-5.1); Protein, Total 4.8 g/dL (5.8-8.1); Sodium 138 mmol/L (136-145)
[2022-01-12 04:39] LABS: Anisocytosis SLIGHT = 6-15 cells (100X) (0-5/hpf); Band 8 % (5-11); Eosinophils 1 % (0-10); Hemoglobin 6.5 g/dL (12.0-16.0); Large Platelets SLIGHT; Lymphocytes 19 % (21-51); MDiff Complete? YES; Mean Corpuscular HGB CONC 32.5 g/dL (32.0-36.0); Mean Corpuscular Volume 98.4 fl (78.0-98.0); Monocytes 1 % (0-10); Myelocyte 1 % (0-0); Neutrophil 70 % (42-75); Nucleated RBC 1 % (0); Platelet Count 331 10x3/uL (130-400); Platelet Morphology Comment Appears Adequate; RBC Distribution Width 20.6 % (11.5-14.5); Red Blood Cell (RBC) Count 2.02 mill/uL (4.20-5.40); White Blood Cell (WBC) Count 7.4 10x3/uL (4.8-10.8)
[2022-01-12] MEDS: Metoclopramide 10 MG/10 ML UDCUP PER TUBE SCH ×3 (05:02→20:56)
[2022-01-12] MEDS: Carvedilol 25 MG TAB PO SCH ×2 (09:25→16:48)
[2022-01-12] MEDS: Potassium Bicarbonate/Cit Ac 20 MEQ TAB PER TUBE SCH (09:25)
[2022-01-12] MEDS: Amlodipine 5 MG TAB PO SCH (09:26)
[2022-01-12] MEDS: Heparin 5,000 UNITS/ML VIAL SC SCH ×2 (09:26→20:57)
[2022-01-12] MEDS: Saccharomyces boulardii 250 MG CAP PO SCH (09:26)
[2022-01-12] MEDS: Tacrolimus 1 MG CAP PO SCH ×2 (09:26→20:56)
[2022-01-12] MEDS: Lisinopril 10 MG TAB PER TUBE SCH (09:27)
[2022-01-12] MEDS: Magnesium Oxide 400 MG TAB PO SCH (09:28)
[2022-01-12] MEDS: Nystatin Cream 30 GM TUBE TOP SCH ×3 (09:28→20:57)
[2022-01-12] MEDS: HumaLOG 300 UNITS/3 ML VIAL SC PRN (10:37)
[2022-01-12] MEDS: Lansoprazole 15 MG/5 ML (BATCHED)UDCUP PER TUBE SCH (11:09)
[2022-01-12] MEDS: Meropenem 500 MG in Sodium Chloride 0.9% 100 ML IVPB SCH (17:05)
[2022-01-13] MEDS: HYDROcodone/Acetaminophen 5/325 mg Tablet PO SCH ×4 (02:06→20:22)
[2022-01-13] MEDS: Metoclopramide 10 MG/10 ML UDCUP PER TUBE SCH ×5 (05:59→20:21)
[2022-01-13] MEDS: Acetaminophen 650 MG/20.3 ML UDCUP PER TUBE PRN ×2 (06:19→17:19)
[2022-01-13 07:12] LABS: #Lymphocytes 1.2 thou/uL (1.20-3.40); #Monocytes 0.4 thou/uL (0.11-0.59); #Neutrophils 5.1 thou/uL (1.40-6.50); %Basophils 0.2 % (0.0-1.0); %Eosinophils 0.3 % (0.0-10.0); %Lymphocytes 17.7 % (21.0-51.0); %Monocytes 6.2 % (0.0-10.0); %Neutrophils 75.7 % (42.0-75.0); Hemoglobin 8.6 g/dL (12.0-16.0); Mean Corpuscular HGB CONC 32.8 g/dL (32.0-36.0); Mean Corpuscular Hemoglobin 31.8 pg (27.0-31.0); Mean Corpuscular Volume 96.9 fl (78.0-98.0); Mean Platelet Volume 8.1 fL (7.4-10.4); Platelet Count 352 10x3/uL (130-400); RBC Distribution Width 18.5 % (11.5-14.5); White Blood Cell (WBC) Count 6.7 10x3/uL (4.8-10.8)
[2022-01-13 07:34] LABS: ALT (SGPT) 15 U/L (8-55); AST (SGOT) 46 U/L (5-34); Albumin 2.5 g/dL (3.4-4.8); Alkaline Phosphatase 274 U/L (40-110); Anion Gap 17 mmol/L (10-20); BUN (Urea Nitrogen) 72 mg/dL (9.8-20.1); Bilirubin, Total 0.6 mg/dL (0.2-1.2); Calc. Creatinine Clearance 27 mL/min (70-130); Calcium 8.3 mg/dL (7.8-10.44); Carbon Dioxide 25 mmol/L (23-31); Chloride 98 mmol/L (98-107); Estimated GFR 39; Globulin 2.3 g/dL (2.4-3.5); Glucose 186 mg/dL (80-115); Protein, Total 4.8 g/dL (5.8-8.1); Sodium 135 mmol/L (136-145)
[2022-01-13] MEDS: Lansoprazole 15 MG/5 ML (BATCHED)UDCUP PER TUBE SCH (08:30)
[2022-01-13] MEDS: Saccharomyces boulardii 250 MG CAP PO SCH (08:31)
[2022-01-13] MEDS: Potassium Bicarbonate/Cit Ac 20 MEQ TAB PER TUBE SCH ×2 (08:31→09:54)
[2022-01-13] MEDS: Magnesium Oxide 400 MG TAB PO SCH (08:31)
[2022-01-13] MEDS: Amlodipine 5 MG TAB PO SCH (08:31)
[2022-01-13] MEDS: Carvedilol 25 MG TAB PO SCH ×2 (08:31→18:24)
[2022-01-13] MEDS: Lisinopril 10 MG TAB PER TUBE SCH (08:31)
[2022-01-13] MEDS: Tacrolimus 1 MG CAP PO SCH ×2 (08:56→20:21)
[2022-01-13] MEDS: Nystatin Cream 30 GM TUBE TOP SCH ×3 (08:56→20:21)
[2022-01-13] MEDS ORDERED: Albumin 25% 25 GM/100 ML BOT IVPB SCH (09:30)
[2022-01-13] MEDS: Heparin 5,000 UNITS/ML VIAL SC SCH ×2 (09:46→20:21)
[2022-01-13] MEDS: EPOETIN ALFA-EPBX (ESRD) 10,000 UNIT/ML VIAL SC SCH (09:54)
[2022-01-13 10:09] LABS: HBSAB Concentration Less than 8.00 mIU/mL; HBSAg Index 0.27 S/CO (0-0.99); Hep B Core Total Ab Non-Reactive (NonReactive); Hep B Core Total Index 0.12 S/CO (0-0.79); Hep B Surf AB Non-Reactive (NonReactive); Hep B Surf Ag Non-Reactive S/CO (NonReactive); Hep C IgG Ab Non-Reactive (NonReactive); Hep C Index 0.09 S/CO (0-0.79)
[2022-01-13] MEDS: Meropenem 500 MG in Sodium Chloride 0.9% 100 ML IVPB SCH (18:28)
[2022-01-14] MEDS: HYDROcodone/Acetaminophen 5/325 mg Tablet PO SCH ×2 (02:45→09:45)
[2022-01-14] MEDS: Metoclopramide 10 MG/10 ML UDCUP PER TUBE SCH ×3 (05:57→20:23)
[2022-01-14] MEDS: Scopolamine 1.5 mg/72 hour Patch TD SCH (05:58)
[2022-01-14 08:13] LABS: ALT (SGPT) 16 U/L (8-55); AST (SGOT) 55 U/L (5-34); Albumin 2.9 g/dL (3.4-4.8); Alkaline Phosphatase 221 U/L (40-110); Anion Gap 15 mmol/L (10-20); BUN (Urea Nitrogen) 49 mg/dL (9.8-20.1); Bilirubin, Total 0.8 mg/dL (0.2-1.2); Calc. Creatinine Clearance 34 mL/min (70-130); Calcium 8.2 mg/dL (7.8-10.44); Carbon Dioxide 26 mmol/L (23-31); Chloride 100 mmol/L (98-107); Estimated GFR 51; Globulin 2.2 g/dL (2.4-3.5); Glucose 195 mg/dL (80-115); Potassium 4.3 mmol/L (3.5-5.1); Protein, Total 5.1 g/dL (5.8-8.1); Sodium 137 mmol/L (136-145)
[2022-01-14] MEDS ORDERED: HYDROcodone/Acetaminophen 5/325 mg Tablet PO PRN (09:03)
[2022-01-14] MEDS: Amlodipine 5 MG TAB PO SCH (09:26)
[2022-01-14] MEDS: Heparin 5,000 UNITS/ML VIAL SC SCH ×2 (09:26→20:22)
[2022-01-14] MEDS: Magnesium Oxide 400 MG TAB PO SCH (09:26)
[2022-01-14] MEDS: Carvedilol 25 MG TAB PO SCH ×2 (09:26→17:06)
[2022-01-14] MEDS: Nystatin Cream 30 GM TUBE TOP SCH ×3 (09:26→20:23)
[2022-01-14] MEDS: Saccharomyces boulardii 250 MG CAP PO SCH (09:26)
[2022-01-14] MEDS: Lansoprazole 15 MG/5 ML (BATCHED)UDCUP PER TUBE SCH (09:26)
[2022-01-14] MEDS: Tacrolimus 1 MG CAP PO SCH ×2 (09:26→20:22)
[2022-01-14] MEDS: Lisinopril 10 MG TAB PER TUBE SCH (09:26)
[2022-01-14 10:59] LABS: #Monocytes 0.2 thou/uL (0.11-0.59); #Neutrophils 4.4 thou/uL (1.40-6.50); %Eosinophils 0.8 % (0.0-10.0); %Lymphocytes 18.2 % (21.0-51.0); %Monocytes 3.9 % (0.0-10.0); %Neutrophils 77.1 % (42.0-75.0); Hemoglobin 7.7 g/dL (12.0-16.0); Mean Corpuscular Hemoglobin 31.8 pg (27.0-31.0); Mean Corpuscular Volume 99.3 fl (78.0-98.0); Mean Platelet Volume 7.9 fL (7.4-10.4); Platelet Count 278 10x3/uL (130-400); RBC Distribution Width 18.2 % (11.5-14.5); Red Blood Cell (RBC) Count 2.41 mill/uL (4.20-5.40); White Blood Cell (WBC) Count 5.7 10x3/uL (4.8-10.8)
[2022-01-14] MEDS: Meropenem 500 MG in Sodium Chloride 0.9% 100 ML IVPB SCH (17:06)
[2022-01-15] MEDS: Metoclopramide 10 MG/10 ML UDCUP PER TUBE SCH ×3 (05:48→21:06)
[2022-01-15 06:51] LABS: Hemoglobin 7.1 g/dL (12.0-16.0); Mean Corpuscular HGB CONC 31.8 g/dL (32.0-36.0); Mean Corpuscular Volume 97.8 fl (78.0-98.0); Mean Platelet Volume 8.5 fL (7.4-10.4); Platelet Count 301 10x3/uL (130-400); RBC Distribution Width 18.3 % (11.5-14.5); Red Blood Cell (RBC) Count 2.28 mill/uL (4.20-5.40); White Blood Cell (WBC) Count 6.1 10x3/uL (4.8-10.8)
[2022-01-15 07:15] LABS: ALT (SGPT) 38 U/L (8-55); AST (SGOT) 118 U/L (5-34); Albumin 2.7 g/dL (3.4-4.8); Alkaline Phosphatase 251 U/L (40-110); Anion Gap 13 mmol/L (10-20); BUN (Urea Nitrogen) 71 mg/dL (9.8-20.1); Bilirubin, Total 0.7 mg/dL (0.2-1.2); Calc. Creatinine Clearance 26 mL/min (70-130); Calcium 8.3 mg/dL (7.8-10.44); Carbon Dioxide 27 mmol/L (23-31); Chloride 98 mmol/L (98-107); Estimated GFR 37; Globulin 2.4 g/dL (2.4-3.5); Glucose 189 mg/dL (80-115); Protein, Total 5.1 g/dL (5.8-8.1); Sodium 134 mmol/L (136-145)
[2022-01-15] MEDS: Acetaminophen 650 MG/20.3 ML UDCUP PER TUBE PRN ×2 (08:47→23:15)
[2022-01-15] MEDS: Amlodipine 5 MG TAB PO SCH (08:48)
[2022-01-15] MEDS: Magnesium Oxide 400 MG TAB PO SCH (08:48)
[2022-01-15] MEDS: Saccharomyces boulardii 250 MG CAP PO SCH (08:48)
[2022-01-15] MEDS: Lansoprazole 15 MG/5 ML (BATCHED)UDCUP PER TUBE SCH (08:48)
[2022-01-15] MEDS: Tacrolimus 1 MG CAP PO SCH ×2 (08:49→21:06)
[2022-01-15] MEDS: Heparin 5,000 UNITS/ML VIAL SC SCH ×2 (08:49→21:06)
[2022-01-15] MEDS: Nystatin Cream 30 GM TUBE TOP SCH ×3 (08:49→21:06)
[2022-01-15] MEDS: Carvedilol 25 MG TAB PO SCH ×2 (08:49→16:03)
[2022-01-15] MEDS: Lisinopril 10 MG TAB PER TUBE SCH (08:49)
[2022-01-15 08:51] LABS: Actual Bicarbonate (HCO3a) 28.8 mEq/L (22-28); Base Excess (BEa) 6.2 mEq/L (-2.0 to +3.0); CO2 Tension 33.3 mmHg (35.0-45.0); Calcium, Ionized (arterial) 1.13 mmol/L (1.12-1.30); Carboxyhemoglobin (COHb) 1.2 gm% (0.0-3.0); Hemoglobin (Hb) 7.7 g/dL (12.0-16.0); O2 Tension (PaO2), arterial 65.4 mmHg (> 70.0); Potassium - ABG Lab 3.94 mmol/L (3.70-5.30); pH, Arterial 7.56 (7.35-7.45)
[2022-01-15 08:52] LABS: Anisocytosis SLIGHT = 6-15 cells (100X) (0-5/hpf); Band 8 % (5-11); Large Platelets SLIGHT; Lymphocytes 10 % (21-51); MDiff Complete? YES; Neutrophil 82 % (42-75); Ovalocytes SLIGHT = 2-5 cells (100X) (0-1/hpf); Platelet Morphology Comment Appears Adequate; Polychromasia SLIGHT = 2-3 cells (100X) (0-2/hpf)
[2022-01-15 08:53] LABS: ALV-art Gradient 178.175 mmHg (0-20); Puncture Site RRA
[2022-01-15] MEDS: HumaLOG 300 UNITS/3 ML VIAL SC PRN (12:26)
[2022-01-16] MEDS: Metoclopramide 10 MG/10 ML UDCUP PER TUBE SCH ×3 (05:54→22:32)
[2022-01-16 07:22] LABS: #Monocytes 0.3 thou/uL (0.11-0.59); #Neutrophils 4.5 thou/uL (1.40-6.50); %Eosinophils 0.1 % (0.0-10.0); %Lymphocytes 17.2 % (21.0-51.0); %Monocytes 4.8 % (0.0-10.0); %Neutrophils 77.9 % (42.0-75.0); Hemoglobin 7.1 g/dL (12.0-16.0); Mean Corpuscular HGB CONC 31.9 g/dL (32.0-36.0); Mean Corpuscular Hemoglobin 31.5 pg (27.0-31.0); Mean Corpuscular Volume 98.6 fl (78.0-98.0); Mean Platelet Volume 8.2 fL (7.4-10.4); Platelet Count 267 10x3/uL (130-400); RBC Distribution Width 17.9 % (11.5-14.5); Red Blood Cell (RBC) Count 2.25 mill/uL (4.20-5.40); White Blood Cell (WBC) Count 5.7 10x3/uL (4.8-10.8)
[2022-01-16 07:45] LABS: ALT (SGPT) 50 U/L (8-55); AST (SGOT) 113 U/L (5-34); Albumin 2.4 g/dL (3.4-4.8); Alkaline Phosphatase 246 U/L (40-110); Anion Gap 14 mmol/L (10-20); BUN (Urea Nitrogen) 91 mg/dL (9.8-20.1); Bilirubin, Total 0.6 mg/dL (0.2-1.2); Calc. Creatinine Clearance 21 mL/min (70-130); Calcium 8.2 mg/dL (7.8-10.44); Carbon Dioxide 28 mmol/L (23-31); Chloride 96 mmol/L (98-107); Estimated GFR 29; Globulin 2.4 g/dL (2.4-3.5); Glucose 217 mg/dL (80-115); Potassium 3.8 mmol/L (3.5-5.1); Protein, Total 4.8 g/dL (5.8-8.1); Sodium 134 mmol/L (136-145)
[2022-01-16] MEDS: Carvedilol 25 MG TAB PO SCH ×2 (09:00→15:14)
[2022-01-16] MEDS: Heparin 5,000 UNITS/ML VIAL SC SCH ×2 (09:00→22:32)
[2022-01-16] MEDS: Amlodipine 5 MG TAB PO SCH (09:00)
[2022-01-16] MEDS: Lisinopril 10 MG TAB PER TUBE SCH (09:00)
[2022-01-16] MEDS: Nystatin Cream 30 GM TUBE TOP SCH ×3 (09:00→22:10)
[2022-01-16] MEDS: Tacrolimus 1 MG CAP PO SCH ×2 (13:11→22:38)
[2022-01-16] MEDS: Magnesium Oxide 400 MG TAB PO SCH (13:12)
[2022-01-16] MEDS: Saccharomyces boulardii 250 MG CAP PO SCH (13:12)
[2022-01-16] MEDS: EPOETIN ALFA-EPBX (ESRD) 10,000 UNIT/ML VIAL SC SCH (15:13)
[2022-01-16] MEDS: Lansoprazole 15 MG/5 ML (BATCHED)UDCUP PER TUBE SCH (16:50)
[2022-01-16] MEDS: HumaLOG 300 UNITS/3 ML VIAL SC PRN (18:00)
[2022-01-17] MEDS: Scopolamine 1.5 mg/72 hour Patch TD SCH (06:09)
[2022-01-17] MEDS: Metoclopramide 10 MG/10 ML UDCUP PER TUBE SCH ×2 (06:09→14:56)
[2022-01-17 07:37] LABS: ALT (SGPT) 45 U/L (8-55); AST (SGOT) 101 U/L (5-34); Albumin 2.4 g/dL (3.4-4.8); Alkaline Phosphatase 281 U/L (40-110); Anion Gap 14 mmol/L (10-20); BUN (Urea Nitrogen) 55 mg/dL (9.8-20.1); Bilirubin, Total 0.7 mg/dL (0.2-1.2); Calc. Creatinine Clearance 32 mL/min (70-130); Calcium 8.1 mg/dL (7.8-10.44); Carbon Dioxide 26 mmol/L (23-31); Chloride 97 mmol/L (98-107); Estimated GFR 46; Globulin 2.6 g/dL (2.4-3.5); Glucose 176 mg/dL (80-115); Potassium 3.2 mmol/L (3.5-5.1); Sodium 134 mmol/L (136-145)
[2022-01-17 07:38] LABS: Hemoglobin 8.4 g/dL (12.0-16.0); Mean Corpuscular HGB CONC 32.3 g/dL (32.0-36.0); Mean Corpuscular Hemoglobin 30.9 pg (27.0-31.0); Mean Corpuscular Volume 95.7 fl (78.0-98.0); Mean Platelet Volume 8.7 fL (7.4-10.4); Platelet Count 262 10x3/uL (130-400); RBC Distribution Width 17.3 % (11.5-14.5); Red Blood Cell (RBC) Count 2.72 mill/uL (4.20-5.40); White Blood Cell (WBC) Count 5.2 10x3/uL (4.8-10.8)
[2022-01-17] MEDS: Heparin 5,000 UNITS/ML VIAL SC SCH (09:06)
[2022-01-17] MEDS: Lansoprazole 15 MG/5 ML (BATCHED)UDCUP PER TUBE SCH (09:06)
[2022-01-17] MEDS: Saccharomyces boulardii 250 MG CAP PO SCH (09:06)
[2022-01-17] MEDS: Amlodipine 5 MG TAB PO SCH (09:06)
[2022-01-17] MEDS: Tacrolimus 1 MG CAP PO SCH (09:06)
[2022-01-17] MEDS: Carvedilol 25 MG TAB PO SCH (09:06)
[2022-01-17] MEDS: Nystatin Cream 30 GM TUBE TOP SCH ×2 (09:07→14:56)
[2022-01-17] MEDS: Magnesium Oxide 400 MG TAB PO SCH (09:07)
[2022-01-17] MEDS: GUAIFENESIN SF SOLN 200 MG/10 ML UDCUP PER TUBE PRN (09:23)
[2022-01-17] MEDS ORDERED: Potassium Bicarbonate/Cit Ac 20 MEQ TAB PO SCH (10:00)
[2022-01-17] MEDS: Acetaminophen 650 MG/20.3 ML UDCUP PER TUBE PRN ×2 (10:55→14:56)
[2022-01-17 11:16] LABS: Band 32 % (5-11); Hypochromia SLIGHT = 6-15 cells (100X) (0-5/hpf); Lymphocytes 19 % (21-51); MDiff Complete? YES; Monocytes 4 % (0-10); Neutrophil 45 % (42-75); Platelet Morphology Comment Appears Adequate; Polychromasia SLIGHT = 2-3 cells (100X) (0-2/hpf)
[2022-01-17 16:17] VITALS: BP 111/53; TEMP 98.4
[2022-01-17 16:27] VITALS: BMI 21.4
[2022-01-18] MEDS ORDERED: Potassium Bicarbonate/Cit Ac 20 MEQ TAB PO SCH (08:00)
[2022-01-18] MEDS ORDERED: Epoetin (ESRD) 10,000 UNITS/ML VIAL SC SCH (09:00)
== END 2022-01-17 16:19 | disposition home or self-care (01) | DRG 4 ==
LOC: ERS 14:02 → T4-A 17:58 → T4-B 11-22 00:46 → 2NO 11-24 20:39 → IMCU/EMU 11-26 21:54 → NEURO 11-30 16:47 → IMCU/EMU 12-09 17:46 → CCU 12-29 03:30 → T4-B 01-12 15:14
PROVIDERS: ADMIT Internal Medicine; ATTEND Internal Medicine
PROC: 3E03329 Introduction of Other Anti-infective into Peripheral Vein, Percutaneous Approach (ICD-10-PCS; 2021-11-21)
PROC: 0DH63UZ Insertion of Feeding Device into Stomach, Percutaneous Approach (ICD-10-PCS; principal; 2021-12-08)
PROC: 30233N1 Transfusion of Nonautologous Red Blood Cells into Peripheral Vein, Percutaneous Approach (ICD-10-PCS; 2021-12-11)
PROC: 06HY33Z Insertion of Infusion Device into Lower Vein, Percutaneous Approach (ICD-10-PCS; 2021-12-17)
PROC: 5A1D70Z Performance of Urinary Filtration, Intermittent, Less than 6 Hours Per Day (ICD-10-PCS; 2021-12-17)
PROC: 5A1955Z Respiratory Ventilation, Greater than 96 Consecutive Hours (ICD-10-PCS; 2021-12-29)
PROC: 0B113F4 Bypass Trachea to Cutaneous with Tracheostomy Device, Percutaneous Approach (ICD-10-PCS; 2022-01-06)
PROC: 0JH63XZ Insertion of Tunneled Vascular Access Device into Chest Subcutaneous Tissue and Fascia, Percutaneous Approach (ICD-10-PCS; 2022-01-10)
PROC: 02HV33Z Insertion of Infusion Device into Superior Vena Cava, Percutaneous Approach (ICD-10-PCS; 2022-01-10)
PROC: B548ZZA Ultrasonography of Superior Vena Cava, Guidance (ICD-10-PCS; 2022-01-10)
PROC: 0BH17EZ Insertion of Endotracheal Airway into Trachea, Via Natural or Artificial Opening (ICD-10-PCS; 2022-01-11)
DX: A41.59 Other Gram-negative sepsis (principal); E43 Unspecified severe protein-calorie malnutrition; G93.41 Metabolic encephalopathy; N17.0 Acute kidney failure with tubular necrosis; J96.01 Acute respiratory failure with hypoxia; J69.0 Pneumonitis due to inhalation of food and vomit; J18.9 Pneumonia, unspecified organism; J96.02 Acute respiratory failure with hypercapnia; G82.50 Quadriplegia, unspecified; T86.11 Kidney transplant rejection; G72.81 Critical illness myopathy; I31.39 Other pericardial effusion (noninflammatory); N18.4 Chronic kidney disease, stage 4 (severe); E87.20 Acidosis, unspecified; F33.9 Major depressive disorder, recurrent, unspecified; N39.0 Urinary tract infection, site not specified; R64 Cachexia; C64.2 Malignant neoplasm of left kidney, except renal pelvis; I12.9 Hypertensive chronic kidney disease with stage 1 through stage 4 chronic kidney disease, or unspecified chronic kidney disease; E11.22 Type 2 diabetes mellitus with diabetic chronic kidney disease; E11.649 Type 2 diabetes mellitus with hypoglycemia without coma; F41.9 Anxiety disorder, unspecified; I16.0 Hypertensive urgency; Z20.822 Contact with and (suspected) exposure to COVID-19; B96.1 Klebsiella pneumoniae [K. pneumoniae] as the cause of diseases classified elsewhere; E86.9 Volume depletion, unspecified; D63.1 Anemia in chronic kidney disease; E88.09 Other disorders of plasma-protein metabolism, not elsewhere classified; F03.90 Unspecified dementia, unspecified severity, without behavioral disturbance, psychotic disturbance, mood disturbance, and anxiety; R13.12 Dysphagia, oropharyngeal phase; K29.80 Duodenitis without bleeding; K20.90 Esophagitis, unspecified without bleeding; E83.42 Hypomagnesemia; E87.6 Hypokalemia; E83.39 Other disorders of phosphorus metabolism; Z51.5 Encounter for palliative care; Z74.01 Bed confinement status; Z88.5 Allergy status to narcotic agent; Z88.2 Allergy status to sulfonamides; Z88.1 Allergy status to other antibiotic agents; Z88.8 Allergy status to other drugs, medicaments and biological substances; Z79.51 Long term (current) use of inhaled steroids; Z79.899 Other long term (current) drug therapy; Z68.21 Body mass index [BMI] 21.0-21.9, adult; L89.152 Pressure ulcer of sacral region, stage 2
CPT/HCPCS: 36415; 36416; 36430; 36600; 51701; 70450; 70551; 71045; 74018; 74176; 74177; 76775; 80048; 80053; 80069; 80076; 80197; 80202; 80306; 81001; 81003; 81015; 82040; 82140; 82274; 82306; 82570; 82728; 82805; 83540; 83550; 83605; 83630; 83735; 84100; 84132; 84145; 84300; 84443; 84484; 84540; 85025; 85610; 85730; 86704; 86850; 86870; 86880; 86900; 86901; 87040; 87070; 87077; 87081; 87086; 87103; 87186; 87205; 87324; 87340; 87449; 87497; 87505; 87529; 87811; 89220; 90935; 93005; 93010; 93306; 94002; 94003; 94640; 96374; 97139; C1752; C9113; G0257; J0360; J0696; J1200; J1364; J1450; J1610; J1630; J1644; J1815; J1940; J2001; J2185; J2250; J2405; J2543; J2550; J2704; J2765; J2916; J2920; J3010; J3370; J3475; J3480; J3490; J7050; J7070; J7120; J7507; J7512; J7620; P9016; P9047; Q0167; Q4081; Q5105; Q9967; U0002; U0003; U0005